=== PATIENT | female | born 1955 | race Caucasian/White ===

== ENCOUNTER → 2018-02-27 14:01 | Outpatient (CLI) | payer BC, SELFPAY ==
--- NOTE | 2018-02-27 14:07 | MR_ITS ---
MR cervical spine wo con, MR 3-d myelogram/MRCP HISTORY: PT states Neck and upper back pain . Pain has gotten worse. Bilateral arm pain, numbness and tingling at times. Prior neck surgery ITS.REASON: NECK PAIN ORDERING PHYSICIAN: Alecia Sims MD PATIENT AGE: 63 years Comparison: X-RAY 10/31/15 TECHNIQUE: Standard multiplanar multiecho sequences are performed without contrast. 3-D MIP and myelographic images are also rendered and reviewed FINDINGS: Normal alignment. The craniocervical junction has an unremarkable appearance. C2-C3: Mild left lateral recess and foraminal narrowing from uncovertebral hypertrophy. C3-C4: Mild left foraminal narrowing from facet and uncovertebral hypertrophy. C4-C5: Degenerative disc disease with bulging disc with borderline narrowing of the canal. There is minimal impingement upon the cord with minimal contour deformity involving the major aspect of the cord from the bulging disc C5-C6: Postsurgical changes with extensive artifact. Bone plate is present anteriorly at C5 and C6 anterior fusion. C6-C7: Degenerative disc disease with mild concentric bulging disc. There is minimal right paracentral disc protrusion versus a small osteophyte without impingement. There is mild right lateral recess and foraminal narrowing from uncovertebral hypertrophy. 67 T1: Unremarkable. IMPRESSION: 1. Postsurgical changes with prior injury cervical disc fusion at C5-C6. 2. Degenerative disc disease C5 with bulging disc with borderline narrowing of the canal. There is minimal impingement upon the cord with minimal contour deformity involving the major aspect of the cord from the bulging disc. 3. Degenerative disc disease C6-C7 with mild concentric bulging disc. There is minimal right paracentral disc protrusion versus a small osteophyte without impingement. There is mild right lateral recess and foraminal narrowing from uncovertebral hypertrophy 4. Mild foraminal and lateral recess narrowing on the left at C2-C3 and C3-C4 5. No extruded herniated disc
== END ==
PROVIDERS: Family Provider Family Medicine; PCP Family Medicine; Visit Provider Family Medicine
DX: M54.2 Cervicalgia (principal)
CPT/HCPCS: 72141; 76376

== ENCOUNTER → 2018-05-15 13:49 | Outpatient (CLI) | payer BC, SELFPAY ==
--- NOTE | 2018-05-15 14:01 | XR_ITS ---
EXAM: XR cervical spine 2V HISTORY: Follow-up surgery ITS.REASON: S/P SURGERY FU ORDERING PHYSICIAN: Referral Provider, PATIENT AGE: 63 years COMPARISON: 10/31/2015 FINDINGS: Normal alignment. There is an anterior bone plate at C5-C6 with fusion of that interspace. Small rectangular shaped metallic devices are now present in both the right and left facet region at C5-6 and C6-C7. There is mild facet sclerosis at C3-C4 and C4-C5. No acute fracture or dislocation. No lytic or blastic changes. IMPRESSION: Fusion of C5-C6 with good alignment with new facet metallic devices at C5-6 and C6-C7
== END ==
PROVIDERS: PCP Family Medicine
DX: Z47.89 Encounter for other orthopedic aftercare (principal)
CPT/HCPCS: 72040

== ENCOUNTER → 2018-06-19 15:18 | Outpatient (CLI) | payer BC, SELFPAY ==
--- NOTE | 2018-06-19 15:22 | XR_ITS ---
EXAM: XR cervical spine 5V HISTORY: ITS.REASON: CERVICAL RADICULOPATHY ORDERING PHYSICIAN: Omari Martin II, DO PATIENT AGE: 63 years COMPARISON: None FINDINGS: There has been prior anterior cervical disc fusion at C5 cc's with small screws also present within the facet joint on both sides at C5-C6 and C6-C7. There is good alignment. No fracture or dislocation. There is degenerative disc disease at C5-6 and C7-T1. No fracture or dislocation evident. IMPRESSION: 1. Degenerative disc disease C4-5 and C6 C7. 2. Prior anterior cervical disc fusion at C5-C6
== END ==
PROVIDERS: PCP Family Medicine; Visit Provider Orthopaedic Surgery Orthopaedic Surgery of the Spine
DX: M54.12 Radiculopathy, cervical region (principal); M54.2 Cervicalgia
CPT/HCPCS: 72050

== ENCOUNTER → 2018-06-25 14:04 | Outpatient (CLI) | payer BC, SELFPAY ==
--- NOTE | 2018-06-25 14:09 | CT_ITS ---
CT CERVICAL SPINE WITHOUT CONTRAST CT RECONSTRUCTIONS HISTORY:Continued neck pain, cervical spine surgery ORDERING PHYSICIAN: Omari Martin II, DO PATIENT AGE: 63 years COMPARISON: 06/19/2018 Technique: All CT scans at the facility use one or more dose reduction, viz: automated exposure control, ma/kV adjustment per patient size (including targeted exams where dose is matched to indication, i.e. head), or iterative reconstruction technique PROCEDURE: Axial spiral CT scanning performed of the cervical spine beginning at the base of the skull and continuing to the upper T-spine. 3-D multiplanar reconstruction with 3-D manipulation of volumetric data set in image rendering was completed by the radiologist and/or technologist with the supervision of the radiologist on independent workstation. FINDINGS: There is normal alignment. No acute fracture or dislocation. No lytic or blastic change. No malalignment. C1-C2: Mild osteoarthritic changes of the atlantoaxial joint at the dens. C2-C3: Mild degenerative disc disease with minimal uncovertebral hypertrophy on the left with mild left foraminal narrowing. C3-C4: Mild left-sided uncovertebral hypertrophy with mild left-sided foraminal narrowing. C5: Degenerative disc disease with small endplate osteophytes at the inferior aspect of C4 with mild facet hypertrophy and mild bilateral foraminal narrowing. C5-C6: Status post anterior cervical disc fusion with good alignment. The foramina are widely patent and there is no evidence of canal stenosis. There are small metallic devices between the facets at C5-C6 and C6-C7. These appear squarely within the facet joints. C6-C7: Mild degenerative disc disease with anterior osteophytes of the endplates. C7-T1: Unremarkable. IMPRESSION: 1. Cervical spondylosis as described above with mild degenerative disc disease and uncovertebral arthropathy with mild foraminal narrowing. Please see above for detailed description at each level 2. Postsurgical changes from prior anterior cervical disc fusion at C5-C6 with small metallic devices at the facet joint at C5-C6 and C6-C7
== END ==
PROVIDERS: Family Provider Family Medicine; PCP Family Medicine; Visit Provider Orthopaedic Surgery Orthopaedic Surgery of the Spine
DX: M54.12 Radiculopathy, cervical region (principal)
CPT/HCPCS: 72125

== ENCOUNTER → 2018-07-17 09:46 | Outpatient (POV) | payer BC, SELFPAY | PROVIDERS: Visit Provider Dermatology | DX: Z00.00 Encounter for general adult medical examination without abnormal findings (principal) ==

== ENCOUNTER 2018-09-06 14:00 | Outpatient (RCR) | payer OTHER, BC, SELFPAY ==
--- NOTE | 2018-08-17 14:42 | HMH.OTOPEV ---
OT Inpatient Evaluation Rehab OT Outpatient Eval Start: 08/17/18 14:27 Freq: Status: Active Protocol: Document 08/17/18 14:28 TFRY (Rec: 08/17/18 14:42 TFRY [id number]) Electronically Signed By Marta Benjamin, OT 08/17/18 14:28 Outpatient Therapy Subjective History Subjective History THIS IS A 63 YEAR RIGHT HANDED FEMALE REFFERED TO OCCUPATIONAL THERAPY FOR A LEFT WRIST SPRAIN. PATIENT REPORTS THAT SHE FELL ON June WHEN DOING WORK FOR THE [employer]. Chief Complaint Pain Symptom Type Ache Sharp Symptoms Relieved By Rest/Positioning Symptoms Aggravated By Physical Activity Prior Functional Limitations None Current Functional Limitations Lifting Housework Dressing Sleeping Symptom Description Constant but Variable Level of pain today (0-10) 4 Pain scale - at its best (0-10) 0 Pain scale - at its worst (0-10) 6 Wrist/Hand Eval Wrist Range of Motion Wrist Extension Active Range of Motion ( 52 degrees) Wrist Extension Passive Range of Motion 64 (degrees) Wrist Flexion Active Range of Motion ( 78 degrees) Wrist Flexion Passive Range of Motion ( 78 degrees) Wrist Radial Deviation Active Range of 40 Motion (degrees) Wrist Radial Deviation Passive Range of 46 Motion (degrees) Wrist Ulnar Deviation Active Range of 30 Motion (degrees) Wrist Ulnar Deviation Passive Range of 32 Motion (degrees) Forearm Supination Active Range of WFL Motion (degrees) Forearm Pronation Active Range of Motion WFL (degrees) Wrist Manual Muscle Testing Left Wrist Extension Strength Grade 3+ Fair+ Wrist Flexion Strength Grade 3+ Fair+ Wrist Radial Deviation Strength Grade 3+ Fair+ Wrist Ulnar Deviation Strength Grade 3+ Fair+ Brothel Keeper/Pinch Strength Brothel Keeper Strength Measurement (lbs) 26 OT Outpatient Assessment Impairments Problems/Impairments Impaired Strength Impaired Lifting Impaired Dressing Impaired Household Care Impaired Work Activities Subjective C/O Pain Prognosis Rehab Potential Good Clinical Impression Consistent with Diagnosis Yes Short Term Goals Number of Weeks 3 Increase Streng
== END 2018-09-06 14:05 | disposition home or self-care (01) ==
LOC: OT 14:00
PROVIDERS: Visit Provider Family Medicine
DX: S63.502D Unspecified sprain of left wrist, subsequent encounter (principal)
CPT/HCPCS: 97110; 97165

== ENCOUNTER → 2018-10-22 09:54 | Outpatient (POV) | payer BC, SELFPAY | PROVIDERS: Visit Provider Specialist | DX: M54.2 Cervicalgia (principal) | CPT/HCPCS: 95886; 95909 ==

== ENCOUNTER → 2019-01-16 14:29 | Outpatient (CLI) | payer BC, SELFPAY ==
--- NOTE | 2019-01-16 14:36 | CT_ITS ---
CT lung screening EXAM: CT LUNG LOW DOSE WO CONTRAST HISTORY: 30 pack-year smoking history, asymptomatic for lung cancer ITS.REASON: H/O NICOTINE DEPENDENCE ORDERING PHYSICIAN: Alecia Sims MD PATIENT AGE: 64 years COMPARISON: 12/15/2016 TECHNIQUE: The exam was performed on a GE Light Speed [address] scanner using 2.90 mGy CTDI. A low dose helical CT CHEST was performed on a multi-detector scanner. All CT scans at the facility use one or more dose reduction, viz: automated exposure control, ma/kV adjustment per patient size (including targeted exams where dose is matched to indication, i.e. head), or iterative reconstruction technique. The LDCT was performed in a facility that meets the criteria for the screening program. Data regarding this exam was submitted to ACR which is an approved registry. The order for this exam indicates that it came as a result of a lung cancer screening counseling shard decision-making visit that included all the elements required of such a visit including smoking cessation. The radiologist interpreting this exam meets the CMS criteria for the LDCT lung cancer screening program. The exam is reported using the Lung-RADS classification scale and reported to the ACR registry. NOTE: This study was performed for the specific purposes of lung cancer screening and is not an alternative to diagnostic chest CT. RADIATION DOSE: CTDI vol(CT dose Index-volume) = 2.90mG DLP (Dose Length Product) = 90.38 mGcm FINDINGS: There are scattered calcified granulomas. No suspicious pulmonary nodules apparent. Incidental coronary artery calcifications present. Mild COPD. IMPRESSION: 1. Lung RADS Category: 2, benign 2. Other findings: COPD, coronary artery disease RECOMMENDATIONS: 12 month LDCT follow-up
== END ==
PROVIDERS: PCP Family Medicine; Visit Provider Family Medicine
DX: Z12.2 Encounter for screening for malignant neoplasm of respiratory organs (principal); Z87.891 Personal history of nicotine dependence

== ENCOUNTER → 2019-09-30 09:21 | Outpatient (CLI) | payer MEDICARE, OTHER, SELFPAY ==
--- NOTE | 2019-09-30 | CA_ITS ---
APPROVED REPORT Screw Machine Hand: CT Laterality: Bilateral Study Quality: Adequate Indications: Bruit Risk Factors Hypertension: Hyperlipidemia Doppler Spectral Velocity Analysis ECA (R) 104.50/19.70 cm/s ECA (L) 110.50/28.30 cm/s dICA (R) 59.70/23.50 cm/s dICA (L) 68.80/25.50 cm/s Katherin (R) 61.00/21.20 cm/s Katherin (L) 66.80/25.70 cm/s pICA (R) 61.00/21.80 cm/s pICA (L) 64.20/25.70 cm/s dCCA (R) 73.20/19.90 cm/s dCCA (L) 82.20/24.40 cm/s pCCA (R) 120.80/24.80 cm/s pCCA (L) 89.60/23.50 cm/s Vert (R) 37.10/12.00 cm/s Vert (L) 40.30/13.60 cm/s ICA/CCA 0.80 ICA/CCA 0.80 Findings Duplex evaluation demonstrates stenosis of the right proximal internal carotid artery <20% with PSV <140 cm/sec, EDV <100 cm/sec, and IC/CC Ratio <4.0. Duplex evaluation demonstrates stenosis of the left proximal internal carotid artery in the range of 20-49% with PSV <140 cm/sec, EDV <100 cm/sec, and IC/CC Ratio <4.0. Duplex evaluation demonstrates antegrade flow of the bilateral Vertebral Arteries. Cysts noted in thyroid. Conclusion Duplex evaluation demonstrates stenosis of the right proximal internal carotid artery Duplex evaluation demonstrates stenosis of the left proximal internal carotid artery in the range of 20-49% Duplex evaluation demonstrates antegrade flow of the bilateral Vertebral Arteries. Cysts noted in left lobe of the thyroid. Electronically signed by : Lincoln St MD 10/01/2019 18:23:03
== END ==
PROVIDERS: PCP Family Medicine; Visit Provider Nurse Practitioner
DX: R09.89 Other specified symptoms and signs involving the circulatory and respiratory systems (principal); M54.2 Cervicalgia
CPT/HCPCS: 93880

== ENCOUNTER → 2020-07-25 07:52 | Outpatient (CLI) | payer MEDICARE, OTHER, SELFPAY ==
--- NOTE | 2020-07-25 07:55 | MR_ITS ---
PROCEDURE: MR CERVICAL SPINE WO CON CLINICAL INDICATION: cervical spondylosis Left-sided neck pain radiating into theback COMPARISON: CT SPCERVWO CT cervical spine wo con from 06/29/2018 TECHNIQUE: Standard multiplanar multiecho sequences are performed without contrast. 3-D MIP and myelographic images are also rendered and reviewed FINDINGS: There is normal alignment. Craniocervical junction has an unremarkable appearance. C2-C3: There is some minimal left-sided uncovertebral hypertrophy with mild left-sided foraminal narrowing. C3-C4: Minimal central disc protrusion slightly eccentric toward the left with left-sided facet and uncovertebral hypertrophy with left-sided narrowing. C4-C5: Degenerative disc disease with bulging disc with canal stenosis at 9 mm. There is right-sided foraminal narrowing from uncovertebral hypertrophy. There is minimal anterior impingement upon the cord by the bulging disc and canal stenosis. This is causing contour deformity of the cord anteriorly. C5-C6: Prior anterior cervical disc fusion. There is significant artifact from the metallic hardware. There are metallic device is also at the facets at C5-C6 and C6-C7. This also is causing artifact. C6-C7: Degenerative disc disease with significant artifact on the axial images from the underlying metallic prosthesis. C7-T1: Unremarkable. IMPRESSION: 1. Postsurgical changes at C5-C6 and C6-C7. 2. Cervical spondylosis with facet and uncovertebral hypertrophy with lateral recess and foraminal narrowing. Please see above for detailed description at each level. 3. Degenerative disc disease at C4-C5 with bulging disc with canal stenosis at 9 mm. There is right-sided foraminal narrowing from uncovertebral hypertrophy. There is minimal anterior impingement upon the cord by the bulging disc and canal stenosis. This is causing contour deformity of the cord anteriorly. Dictated by: Lincoln St MD 07/27/2020 12:[address] MD in [place] 07/27/2020 12:01
== END ==
PROVIDERS: PCP Family Medicine; Visit Provider Specialist
DX: M47.812 Spondylosis without myelopathy or radiculopathy, cervical region (principal); R20.0 Anesthesia of skin; R20.2 Paresthesia of skin
CPT/HCPCS: 72141; 76376

== ENCOUNTER → 2020-09-17 09:00 | Outpatient (POV) | payer MEDICARE, OTHER, SELFPAY ==
[2020-09-17 09:18] VITALS: BP 132/78; PULSE 74; RESP 18; TEMP 36.8; O2SAT 98; BMI 31.7
--- NOTE | 2020-09-17 10:18 | HMH.PMCON ---
Assessment and Plan (1) Facet arthropathy Status: Chronic Category: Medical Code(s): M47.819 - Spondylosis without myelopathy or radiculopathy, site unspecified (2) Degenerative joint disease of cervical spine Status: Chronic Category: Medical Code(s): M47.812 - Spondylosis without myelopathy or radiculopathy, cervical region (3) Cervical postlaminectomy syndrome Status: Chronic Category: Medical Code(s): M96.1 - Postlaminectomy syndrome, not elsewhere classified - Assessment and plan all Dx Assessment and Plan for all problems:: Patient is not on any anticoagulation therapy. We will move forward with a C5-C6 C6-C7 medial branch block/facet joint injection. We will do 1 side and then do the second side 1 week later. I will follow-up with the patient after her injection reassess her symptoms at that time she has been instructed to call the office if she has any issues prior to her next appointment. Dr. Meza has reviewed this note and agrees with this plan of care. This note was dictated using voice recognition software and may contain errors or omissions HPI - Data of Consult Consult date: 09/17/20 Requesting Physician: Linh Mandel APRN Primary Care Provider: Fausto Sims - Consult Narrative Reason for consult: Neck pain History of present illness: Ms. Kitchen is a 65 year old female who presents today for consultation regards to her neck pain. Patient has had previous neck surgery. Patient's pain is very focal in her neck area she has difficulty with turning her neck from side to side. Patient has constant pain her baseline pain is a 7 out of 10. She is continuing to try to work. She has difficulties with activity of daily living given her pain symptomology. She is tried and failed multiple medications. Patient has had good relief in the past with cervical ablations. Patient and I discussed a facet joint injection she would like to move forward with this. She is tried and failed chiropractic therapy, physical therapy. She is continuing her physical therapy currently. She is also failed over 6 months of medication management. CC: Linh Mandel APRN [facility] History I have reviewed the patient's past medical history: Yes Medical History: Reports:: Anxiety, Depression, Hyperlipidemia, Hypertension Denies:: Cancer, Diabetes Mellitus Type 1, Diabetes Mellitus Type 2, MRSA *Have you ever received a pneumonia vaccine?: Yes *Have you received a flu vaccine this season?: Yes Other Medical History: Reports: Anemia, Arthritis Other Surgeries: Yes: Colonoscopy, Dilation and Curettage, Tubal Ligation Amputation: No Fractures: No - *Social History Smoking Status: Never smoker Alcohol Intake: never Alcohol Intake Frequency:: holidays/special occasions only Substance Use Type: denies use *Occupational Status:: employed Housing: house Household Members: spouse *Travel in the last 8 weeks: None - Psychiatric History Pschychiatric History:: Reports:: Anxiety, Depression Family Hx:: Unable to obtain Review of Systems - Review of Systems ROS General: no recent weight change, no fever, no sleep disturbances Respiratory: no cough, no shortness of air, no recurring pulmonary infections Cardiovascular/Peripheral Vascular: No chest pain, No palpitations, no edema, no shortness of breath. Gastrointestinal: no new onset incontinence, normal bowel movements reported Genitourinary: no new onset incontinence Musculoskeletal: Neck pain Psychiatric: normal mood/ affect Neurological: [denies new onset weakness in extremities], [denies new onset balance issues] Meds Home Medications Medication Instructions Recorded Confirmed Type Metoprolol Succinate 100 mg PO DAILY 06/29/18 08/13/20 History Omeprazole [Omeprazole 20mg Tab] 20 mg PO DAILY 06/29/18 08/13/20 History lisinopriL [Lisinopril 20mg Tab] 20 mg PO DAILY 06/29/18 08/13/20 History celecoxib 200 mg capsule 200 mg PO BID cap
== END ==
PROVIDERS: PCP Family Medicine; Visit Provider Clinical Nurse Specialist Family Health
DX: M47.812 Spondylosis without myelopathy or radiculopathy, cervical region (principal); M96.1 Postlaminectomy syndrome, not elsewhere classified
CPT/HCPCS: 99202; G0463

== ENCOUNTER 2020-09-25 09:32 | Day surgery (SDC) | payer MEDICARE, OTHER, SELFPAY ==
[2020-09-25 09:40] VITALS: BP 155/70; PULSE 62; RESP 18; TEMP 36.4; O2SAT 99; BMI 31.9
[2020-09-25 10:22] VITALS: BP 135/79; PULSE 85; RESP 18; O2SAT 98
[2020-09-25 10:24] VITALS: BP 132/75; PULSE 79; RESP 18; TEMP 36.8; O2SAT 98
[2020-09-25 10:45] VITALS: BP 148/83; PULSE 63; RESP 20; O2SAT 99
--- NOTE | 2020-09-25 11:32 | HMH.PMPROC ---
- Procedure Date: 09/25/20 Time: 11:32 Anesthesiologist:: Terry Meza MD Complications:: None Pre-procedure Diagnosis:: Degenerative disc disease of the cervical spine with cervical spondylosis and cervical facet arthropathy with increasing neck pain Post-procedure Diagnosis:: Same Indications for Procedure:: Patient is a pleasant 65-year-old white female who we are treating for neck pain with cervical spondylosis and cervical facet arthropathy. She has increasing pain with extension and turning her neck from side to side. She is tender over the facet joints of C5-C6 and C6-C7. She has had a previous anterior cervical disc fusion at C3-C4 and C4-C5. We will plan on right-sided cervical medial branch blocks of C5-C6 and C6-C7 today. Procedure Details:: Cervical medial branch block Informed consent was obtained and the risk and benefits of the procedure was explained to the patient. The patient was into the procedure room and placed prone on the procedure table. The neck was prepped using ChloraPrep. C-arm fluoroscopy was used to view the cervical spine. The skin and subcutaneous tissues were anesthetized lidocaine. I placed 22-gauge spinal needles into the facet joints of C5-6, and C6-7 right side. Needle placement was confirmed with dye. After this I injected 1 mL lidocaine 1.5% and Depo-Medrol 20 mg into each facet joint/medial branch of C5-6, and C6-7 on the right side .We used a total of 40 mg of Medrol for both levels on the right side. Patient tolerated the procedure well with no complications. Plan and Disposition:: Follow-up with the patient 2 weeks. Will reevaluate her symptoms at that time. We will plan on left-sided cervical medial branch block/facet joint injections of C5-C6 and C6-C7. If these medial branch blocks are successful we will proceed to RFA of the same levels of C5-C6 and C6-7.
== END 2020-09-25 10:46 | disposition home or self-care (01) ==
LOC: SC.PAINP 09:34
PROVIDERS: PCP Family Medicine; Visit Provider Anesthesiology
DX: M50.30 Other cervical disc degeneration, unspecified cervical region (principal); M47.812 Spondylosis without myelopathy or radiculopathy, cervical region; M54.02 Panniculitis affecting regions of neck and back, cervical region
CPT/HCPCS: 64490; 64491; J1040; Q9966

== ENCOUNTER → 2020-09-30 10:20 | Outpatient (CLI) | payer MEDICARE, OTHER, SELFPAY ==
[2020-09-30 11:20] LABS: Coronavirus 19 IgG Antibody Negative (Negative); Coronavirus 19 IgM Antibody Negative (Negative)
== END ==
PROVIDERS: Visit Provider Specialist
DX: G47.33 Obstructive sleep apnea (adult) (pediatric) (principal); Z20.822 Contact with and (suspected) exposure to COVID-19
CPT/HCPCS: 36415; 86328

== ENCOUNTER → 2020-10-01 20:18 | Outpatient (CLI) | payer MEDICARE, OTHER, SELFPAY | PROVIDERS: PCP Family Medicine; Visit Provider Specialist | DX: G47.33 Obstructive sleep apnea (adult) (pediatric) (principal) | CPT/HCPCS: 95810 ==

== ENCOUNTER 2020-10-08 13:00 | Outpatient (RCR) | payer MEDICARE, OTHER, SELFPAY ==
--- NOTE | 2020-08-20 11:47 | HMH.PTOPEV ---
PT Outpatient Evaluation Rehab PT Outpatient Evaluation Start: 08/20/20 09:57 Freq: Status: Active Protocol: Document 08/20/20 11:31 GABRIEL (Rec: 08/20/20 11:46 PHORNE [id number]) Electronically Signed By Anthony Rodríguez, PT 08/20/20 11:31 Outpatient Therapy Subjective History Subjective History Pt is 65 yowf who presents with c/o chronic neck pain x ~ 30 yrs and L hand pain x ~ 3- 4 yrs. She has hx of ACIF x 2 at C5-6 and C6-7. MRI shows C4 -5 disc bulge now. NCV/EMG shows carpal tunnel syndrome of B hands, worse on L. She reports pain is constant in neck and intermittent in hands . She has PMH of anxiaty, depression, HL, and HTN. Chief Complaint Pain,Stiff Symptom Type Ache,Sharp,Numbness,Tingling Symptoms Relieved By Nothing Symptoms Aggravated By Physical Activity Prior Functional Limitations Sleeping,Recreation Activity Current Functional Limitations Driving,Sleeping,Recreation Activity Symptom Description Constant but Variable Level of pain today (0-10) 7 Pain scale - at its worst (0-10) 9 Cervical Eval Palpation Cervical Muscles R Cervical Paraspinal,L Cervical Paraspinal,R Suboccipital,L Suboccipital,R CT Junction,L CT Junction,R Upper Trapezius,L Upper Trapezius Flexibility Deficits Upper Trapezius Muscle Length (R) Moderate Tightness,(L) Moderate Tightness Levaetor Scapulae Muscle Length (R) Moderate Tightness,(L) Moderate Tightness Passive Joint Mobility Cervical PIVM Dec: R OA L OA R AA L AA R C2/3 L C2/3 R C3/4 L C3/4 R C4/5 L C4/5 R C5/6 L C5/6 R C6/7 L C6/7 R C7/T1 L C7/T1 AROM Cervical Spine Extension Active Range of 0-25 Motion (degrees)
--- NOTE | 2020-09-24 09:35 | HMH.RHREAS ---
Rehab Reassessment Rehab OP Re-assessment Start: 09/24/20 09:26 Freq: Status: Active Protocol: Document 09/24/20 09:28 GABRIEL (Rec: 09/24/20 09:35 ARMANDOTungMONO [id number]) Electronically Signed By Anthony Rodríguez, PT 09/24/20 09:28 Rehab Re-assessment Subjective Subjective Pt reports, My pain is about the same as it always is, but I'll be honest I haven't been doing my exercises. She also states, I don't notice any problenms in my wrist at all really. Objective Objective Notes Cervical AROM (in deg): Ext= 0 -30, Flex= 0-47, R SB= 0-30, L SB= 0-30, R Rot= 0-50, L Rot= 0-43. Pain: 7/10 this am at rest. Assessment Progress Assessment Slower Than Expected Assessment Notes Pt shows no discernible improvement in AROM or pain. Strength was WNL throughout B UE during initial evaluation. Pt lack of cooperation with HEP and small number of visits (2 since initial eval) likely delaying any possible benefits of therapy. Patient goals met none Goals Not Met ST,2,3,4,5 LT,2,3,4 ,5 Revised Goals none Plan Plan Will continue per initial POC. Will trial trigger point dry needling for possibility of pain relief as able. Frequency of Therapy 2 x/wk Duration of therapy 8 wks Time and Billing Re-Eval Time 15 Re-Eval Billing Units 1 PHYSICIAN CERTIFICATION: I certify the specified therapy services for Ame Kitchen are required, authorized, and reviewed every 30 days.
== END 2020-10-08 13:05 | disposition home or self-care (01) ==
LOC: PT 13:00
PROVIDERS: PCP Family Medicine; Visit Provider Specialist
DX: M47.812 Spondylosis without myelopathy or radiculopathy, cervical region (principal); R51.9 Headache, unspecified; G56.00 Carpal tunnel syndrome, unspecified upper limb
CPT/HCPCS: 20561; 97010; 97014; 97033; 97035; 97110; 97140; 97163; 97164; G0283

== ENCOUNTER 2020-10-09 09:30 | Day surgery (SDC) | payer MEDICARE, OTHER, SELFPAY ==
[2020-10-09 09:38] VITALS: BP 144/89; PULSE 61; RESP 18; TEMP 36.6; O2SAT 98; BMI 30.7
[2020-10-09 10:02] VITALS: BP 143/85; PULSE 92; RESP 18; O2SAT 99
[2020-10-09 10:07] VITALS: BP 138/78; PULSE 90; RESP 18; O2SAT 99
--- NOTE | 2020-10-09 10:11 | HMH.PMPROC ---
- Procedure Date: 10/09/20 Time: 10:11 Anesthesiologist:: Terry Meza MD Complications:: None Pre-procedure Diagnosis:: Degenerative disc disease of cervical spine with cervical spondylosis and cervical facet arthropathy with increasing neck pain Post-procedure Diagnosis:: Same Indications for Procedure:: This patient is a pleasant 65-year-old white female who we are treating for neck pain with cervical spondylosis and cervical facet arthropathy. She has increasing pain with extension and turning her neck from side to side. She is status post right-sided cervical medial branch blocks of C5-C6 and C6-C7. She is doing very well on this side. She has resolution of her pain on the right side. We will do left-sided cervical medial branch block/facet joint injections of C5-C6 and C6-C7 today. Procedure Details:: Cervical medial branch block Informed consent was obtained and the risk and benefits of the procedure was explained to the patient. The patient was into the procedure room and placed prone on the procedure table. The neck was prepped using ChloraPrep. C-arm fluoroscopy was used to view the cervical spine. The skin and subcutaneous tissues were anesthetized lidocaine. I placed 22-gauge spinal needles into the facet joints of C5-6, C6-7 on the left side. Needle placement was confirmed with dye. After this I injected 1 mL lidocaine 1.5% and Depo-Medrol 20 mg into each facet joint/medial branch of C5-6 and C6-C7 on the left side. We used a total of 40 mg of Medrol for both levels on the left side. Patient tolerated the procedure well with no complications. Plan and Disposition:: We will follow-up with her in 2 weeks. Will reevaluate symptoms at that time. If she still doing well we will plan on RF ablation to the facet joint/medial branches of C5-C6 and C6-C7 bilaterally.
[2020-10-09 10:20] VITALS: BP 145/88; PULSE 62; RESP 18; O2SAT 98
== END 2020-10-09 10:20 | disposition home or self-care (01) ==
LOC: SC.PAINP 09:35
PROVIDERS: PCP Family Medicine; Visit Provider Anesthesiology
DX: M50.30 Other cervical disc degeneration, unspecified cervical region (principal); M47.812 Spondylosis without myelopathy or radiculopathy, cervical region; I10 Essential (primary) hypertension; E78.5 Hyperlipidemia, unspecified; K21.9 Gastro-esophageal reflux disease without esophagitis; F41.9 Anxiety disorder, unspecified; F32.9 Major depressive disorder, single episode, unspecified; Z88.8 Allergy status to other drugs, medicaments and biological substances
CPT/HCPCS: 64490; 64491; J1040; Q9966

== ENCOUNTER → 2020-11-12 14:35 | Outpatient (POV) | payer MEDICARE, OTHER, SELFPAY ==
--- NOTE | 2020-11-12 15:49 | HMH.PAINSOAP ---
[facility] Pain Management SOAP Note Subjective:: Patient is a pleasant 65-year-old white female who presents today for follow-up after medial branch block of C5-C6 C6-C7 bilaterally. Patient had good relief during the time that the anesthetic was active. Patient was able to rotate her neck she was able to be more active. She got over 80% relief of her symptomology during this time. Patient has had radiofrequency ablation in the past with good relief. She is interested in pursuing this. Patient rates her pain today an 8 out of 10. She is not on any anticoagulation therapy. She is failed other conservative measures including medications, home stretching program, physical therapy. ROS General: no recent weight change, no fever, no sleep disturbances Respiratory: no cough, no shortness of air, no recurring pulmonary infections Cardiovascular/Peripheral Vascular: No chest pain, No palpitations, no edema, no shortness of breath. Gastrointestinal: no new onset incontinence, normal bowel movements reported Genitourinary: no new onset incontinence Musculoskeletal: Neck pain Psychiatric: normal mood/ affect Neurological: [denies new onset weakness in extremities], [denies new onset balance issues] Objective:: Physical Exam General: Alert and oriented x3, no acute distress, pleasant and cooperative, [on room air] Lungs: Resps E/U, Symmetrical chest expansion, Eyes: PERRL Musculoskeletal: Flexion and extension of cervical spine somewhat guarded secondary to pain, deep tendon reflexes normal, strength in upper and lower extremities [5/5], normal gait noted Neurological: speech clear, 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 I will follow-up with her after this reassess her symptoms at that time she has been instructed to call the office if she has any issues prior to her next appointment. Dr. Meza has reviewed this note and agrees with this plan of care. This note was dictated using voice recognition software and may contain errors or omissions [facility] History I have reviewed the patient's past medical history: Yes Medical History: Reports:: Anxiety, Depression, Hyperlipidemia, Hypertension Denies:: Cancer, Diabetes Mellitus Type 1, Diabetes Mellitus Type 2, MRSA, Seizures *Have you ever received a pneumonia vaccine?: No *Have you received a flu vaccine this season?: No Other Medical History: Reports: Anemia, Arthritis. Denies: Blood Transfusion Reaction Other Surgeries: Yes: Colonoscopy, Dilation and Curettage, Tubal Ligation Amputation: No Fractures: No - *Social History Smoking Status: Never smoker Alcohol Intake: never Alcohol Intake Frequency:: holidays/special occasions only Substance Use Type: denies use *Occupational Status:: employed Housing: house Household Members: spouse *Travel in the last 8 weeks: None - Psychiatric History Pschychiatric History:: Reports:: Anxiety, Depression Family Hx:: Unable to obtain
[2020-11-12 15:54] VITALS: BP 122/68; PULSE 64; RESP 18; O2SAT 98; BMI 31.3
== END ==
PROVIDERS: PCP Psychiatry & Neurology Sleep Medicine; Visit Provider Clinical Nurse Specialist Family Health
DX: M50.10 Cervical disc disorder with radiculopathy, unspecified cervical region (principal); M54.02 Panniculitis affecting regions of neck and back, cervical region
CPT/HCPCS: 99212; G0463

== ENCOUNTER 2020-11-20 11:07 | Day surgery (SDC) | payer MEDICARE, OTHER, SELFPAY ==
[2020-11-20 11:29] VITALS: BP 177/92; PULSE 61; RESP 18; TEMP 36.7; O2SAT 98; BMI 31.3
[2020-11-20 12:28] VITALS: BP 128/85; PULSE 89; RESP 18; O2SAT 98
--- NOTE | 2020-11-20 12:29 | HMH.PMPROC ---
- Procedure Date: 11/20/20 Time: 12:29 Anesthesiologist:: Terry Meza MD Complications:: None Pre-procedure Diagnosis:: Degenerative disc disease of the cervical spine with cervical spondylosis and cervical facet arthropathy Post-procedure Diagnosis:: Same Indications for Procedure:: This patient is a pleasant 65-year-old white female who we are treating for neck pain with cervical facet arthropathy and cervical spondylosis. She did very well with 2 rounds of previous medial branch blocks. She was able to turn her head better. She had 80 to 90% relief for several days. She presents today for RF ablation to the facet joints of C5-C6 and C6-C7. We will do left-sided RF ablation of the facet joint/medial branches of C5-C6 and C6-C7. Procedure Details:: Cervical facet/medial branch RFA of C5-C6 and C6-C7 on the left side Informed consent was obtained the risk and benefits of the procedure were explained to the patient. Patient was taken the procedure room. The neck was prepped using ChloraPrep. A 20-gauge RF needles were placed into the facet joint/medial branches of C5-C6 and C6-C7 on the left side. We underwent sensory stimulation. There was good sensory stimulation at 1 V. We underwent motor stimulation. There was no motor stimulation at 3 V. We anesthetized both levels of C5-C6 and C6-7 with lidocaine and Depo-Medrol 40 mg. We then burned each level of C5-C6 and C6-C7 at 80 ?C for 4 minutes total. Patient tolerated procedure well with no complications. Plan and Disposition:: We will follow-up with her in 2 weeks. Will reevaluate her symptoms at that time. We will plan on RF ablation to the facet joint/medial branches of C5-C6 and C6-C7 on the right side.
[2020-11-20 12:30] VITALS: BP 132/78; PULSE 85; RESP 18; O2SAT 98
[2020-11-20 12:45] VITALS: BP 149/86; PULSE 59; RESP 18; O2SAT 98
== END 2020-11-20 12:45 | disposition home or self-care (01) ==
LOC: SC.PAINP 11:08
PROVIDERS: PCP Psychiatry & Neurology Sleep Medicine; Visit Provider Anesthesiology
DX: M50.10 Cervical disc disorder with radiculopathy, unspecified cervical region (principal); M47.892 Other spondylosis, cervical region; M54.02 Panniculitis affecting regions of neck and back, cervical region; M96.1 Postlaminectomy syndrome, not elsewhere classified; I10 Essential (primary) hypertension; E78.5 Hyperlipidemia, unspecified; K21.9 Gastro-esophageal reflux disease without esophagitis; Z98.1 Arthrodesis status; F41.9 Anxiety disorder, unspecified; F32.9 Major depressive disorder, single episode, unspecified; G43.909 Migraine, unspecified, not intractable, without status migrainosus; Z88.8 Allergy status to other drugs, medicaments and biological substances
CPT/HCPCS: 64633; 64634

== ENCOUNTER → 2020-12-04 14:27 | Day surgery (SDC) | payer MEDICARE, OTHER, SELFPAY ==
[2020-12-04 14:47] VITALS: BP 163/88; PULSE 67; RESP 18; TEMP 36.7; O2SAT 98
--- NOTE | 2020-12-04 15:04 | HMH.PMPROC ---
- Procedure Date: 12/04/20 Time: 15:18 Anesthesiologist:: Terry Meza MD Complications:: None Pre-procedure Diagnosis:: Interim disc disease of cervical spine with cervical spondylosis and cervical facet arthropathy Post-procedure Diagnosis:: Same Indications for Procedure:: Patient is a pleasant 65-year-old white female who we have been treating for neck pain with cervical spondylosis and cervical facet arthropathy. She has had RF ablation to the facet joint/medial branches of left C5-C6 and C6-C7. She is doing very well on the left side. She presents for RF ablation to the facet joint/medial branches of C5-C6 and C6-7 on the right side today. Procedure Details:: Cervical RFA informed consent was obtained and the risk and benefits of the procedure was explained to the patient. Patient was placed prone on the procedure table. The patient was prepped and draped in sterile fashion. C-arm fluoroscopy was used to view the lumbar spine. The skin and subcutaneous tissues were anesthetized using lidocaine. I placed 20-gauge RF needles into the facet joints of C5-C6 C6-C7 levels on the right side. We underwent sensory stimulation. There is good sensory stimulation at 0.8 V. We underwent motor stimulation. There is no motor stimulation at 2 V. We then anesthetized these levels with lidocaine and Depo-Medrol. I used a total of 40 mg Depo-Medrol for both levels. I then burned both levels of C5-C6 C6-C7 facet joint/medial branches on the right side for 4 minutes at 80 ?C. Patient tolerated the procedure well with no complication. Plan and Disposition:: We will follow-up with her in 2 weeks. Will reevaluate symptoms at that time.
[2020-12-04 15:09] VITALS: BP 132/85; PULSE 85; RESP 18; O2SAT 98
[2020-12-04 15:14] VITALS: BP 138/87; PULSE 79; RESP 18; O2SAT 98
== END ==
PROVIDERS: PCP Family Medicine; Visit Provider Anesthesiology
DX: M50.30 Other cervical disc degeneration, unspecified cervical region (principal); M47.812 Spondylosis without myelopathy or radiculopathy, cervical region; M54.02 Panniculitis affecting regions of neck and back, cervical region; I10 Essential (primary) hypertension; E78.5 Hyperlipidemia, unspecified; Z88.8 Allergy status to other drugs, medicaments and biological substances; K21.9 Gastro-esophageal reflux disease without esophagitis; F41.9 Anxiety disorder, unspecified; F32.9 Major depressive disorder, single episode, unspecified; G43.909 Migraine, unspecified, not intractable, without status migrainosus; Z83.438 Family history of other disorder of lipoprotein metabolism and other lipidemia; Z82.49 Family history of ischemic heart disease and other diseases of the circulatory system
CPT/HCPCS: 64633; 64634

== ENCOUNTER 2021-06-02 20:56 | Emergency (ER) | payer MEDICARE, OTHER, SELFPAY ==
[2021-06-02 21:14] VITALS: BP 175/112; PULSE 90; RESP 18; TEMP 38.3; O2SAT 95; BMI 29.8
[2021-06-02 21:48] LABS: Microscopic, Urine URINE MICROSCOPIC (MICROSCOPIC)
[2021-06-02 21:50] LABS: Appearance,Urine CLOUDY (Clear); Bilirubin,Urine Negative (Negative); Blood, Urine 2+ (Negative); Color,Urine YELLOW (Yellow); Glucose,Urine (UA) Negative (Negative); Ketones,Urine Negative (Negative); Leukocyte Esterase,Urine 2+ (Negative); Nitrate,Urine Negative (Negative); PH,Urine 5.5 (5.0-8.5); Protein,Urine 1+ (Negative); Specific Gravity, Urine 1.025 (1.005-1.030)
[2021-06-02 22:04] LABS: Bacteria,Urine 2+ /lpf; Mucus,Urine Trace /lpf
[2021-06-02 22:15] LABS: Basophils # 0.1 K/mm3 (0-0.2); Basophils % 0.5 % (0.1-2.0); Eosinophils # 0.1 K/mm3 (0.0-0.4); Eosinophils % 1.2 % (0.1-12.0); Hematocrit 34.9 % (37.0-47.0); Hemoglobin 12.2 g/dL (12.2-16.2); Lymphocytes % 9.2 % (10-50); Mean Corpuscular HGB Conc 34.9 g/dL (31.8-35.4); Mean Corpuscular Volume 88.6 fl (81-99); Mean Platelet Volume 8.3 fl (7.4-10.4); Monocytes # 0.8 K/mm3 (0.1-1.0); Monocytes % 7.7 % (1.7-9.3); Neutrophils # 8.7 K/mm3 (1.8-7.8); Neutrophils % 81.4 % (37.0-80.0); Platelet Count 210 K/mm3 (142-424); Red Blood Count 3.94 M/mm3 (4.20-5.40); Red Cell Distribution Width 14.2 % (11.5-17.5); White Blood Count 10.7 K/mm3 (4.8-10.8)
[2021-06-02 22:22] LABS: Alanine Aminotransferase 82 U/L (12-78); Albumin Level 3.9 g/dl (3.5-5.0); Albumin/Globulin Ratio 1.3 (1.1-1.8); Alkaline Phosphatase 106 U/L (38-126); Anion Gap 9.1 mEq/L (5-15); Aspartate Amino Transferase 132 U/L (14-36); Bilirubin,Total 0.7 mg/dl (0.2-1.3); Blood Urea Nitrogen 18 mg/dl (7-17); Calcium 8.7 mg/dl (8.4-10.2); Carbon Dioxide 30 mmol/L (22.0-30.0); Chloride 93 mmol/L (98-107); Creatinine Clearance Estimated 66 mL/min (50-200); Estimated Glomerular Filt Rate 50 ml/min (>60); GFR (African American) 60 ML/MIN (>60); Glucose 127 mg/dl (74-100); Potassium 4.1 mmoL/L (3.5-5.1); Sodium 128 mmol/L (136-145); Total Protein,Serum 6.9 g/dl (6.3-8.2)
[2021-06-02 22:28] LABS: C-Reactive Protein 142.7 mg/L (0-4)
[2021-06-02 22:40] LABS: Erythrocyte Sedimentation Rate 78 mm/hr (0-30)
--- NOTE | 2021-06-03 01:15 | HMH.EDGENADL ---
ED Disposition Clinical Impression: UTI (urinary tract infection) Qualifiers: Urinary tract infection type: site unspecified Hematuria presence: without hematuria Qualified Code(s): N39.0 - Urinary tract infection, site not specified Disposition: Home, Self-Care Condition on Discharge: Good Instructions: DI for Urinary Tract Infection (UTI) Additional Instructions: fluids and see pcp this week and culture results Prescriptions: levoFLOXacin [Levaquin 500mg tab] 500 mg PO DAILY #7 tab Transmission Status: Pending to [facility]/pharmacy #[id number] Referrals: Alecia Sims MD [Primary Care Provider] - - Critical Care Critical Care Time: No Attestation: On 06/02/21, the high probability of a clinically significant, sudden or life threatening deterioration of the following system(s) required my full and direct attention, intervention and personal management. The time I documented below is in addition to time spent performing reported procedures but includes the following listed in this critical care notation. Medical Decision Making - Medical Records Medical records reviewed: Yes: I reviewed the patient's medical records. - Julian Inquiry Pt receiving controlled substance: No Vital Signs: 06/02/21 21:14 Temperature 101.0 F H Temperature Source Oral Pulse Rate [Right Brachial] 90 Respiratory Rate 18 Blood Pressure [Right Arm] 175/112 H Blood Pressure Mean [Right Arm] 133 Blood Pressure Source [Right Arm] Automatic Cuff 02 Sat by Pulse Oximetry 95 Oxygen Delivery Method Room Air - Lab Data Lab results reviewed: Yes: I reviewed the patient's lab results. Lab Results 06/02/21 21:44: Urine Color Yellow, Urine Appearance Cloudy, Urine pH 5.5, Ur Specific [place] 1.025, Urine Protein 1+, Urine Glucose (UA) Negative, Urine Ketones Negative, Urine Blood 2+, Urine Nitrate Negative, Urine Bilirubin Negative, Urine Urobilinogen 2.0, Ur Leukocyte Esterase 2+ A, Urine RBC 10-20, Urine WBC 10-20, Ur Squamous Epith Cells 3-5, Urine Bacteria 2+, Urine Mucus Trace 06/02/21 22:03: WBC 10.7, RBC 3.94 L, Hgb 12.2, Hct 34.9 L, MCV 88.6, MCH 31.0, MCHC 34.9, RDW 14.2, Plt Count 210, MPV 8.3, Neut % (Auto) 81.4 H, Lymph % (Auto) 9.2 L, [place] % (Auto) 7.7, Eos % (Auto) 1.2, Baso % (Auto) 0.5, Neut # (Auto) 8.7 H, Lymph # (Auto) 1.0, [place] # (Auto) 0.8, Eos # (Auto) 0.1, Baso # (Auto) 0.1, ESR 78 H 06/02/21 22:03: Sodium 128 L, Potassium 4.1, Chloride 93 L, Carbon Dioxide 30, Anion Gap 9.1, BUN 18 H, Creatinine 1.10 H, Estimated Creat Clear 66, Estimated GFR 50 L, Est GFR ( Amer) 60, Glucose 127 H, Calcium 8.7, Total Bilirubin 0.7, AST 132 H, ALT 82 H, Alkaline Phosphatase 106, C-Reactive Protein 142.7 H, Total Protein 6.9, Albumin 3.9, Globulin 3.0, Albumin/Globulin Ratio 1.3 Result diagrams: 06/02/21 22:03 06/02/21 22:03 Orders (Tests/Meds): ED MEDICATIONS Generic Name Dose Route Start Last Admin Trade Name Freq PRN Reason Stop Dose Admin Sodium Chloride 1,000 mls @ 999 mls/hr 06/03/21 00:15 06/03/21 00:12 Sod Chlor 0.9% 1000ml Bag IV 06/03/21 01:15 999 mls/hr .Q1H1M COURTNEY Administration Ceftriaxone Sodium 1 gm/ 50 mls @ 100 mls/hr 06/03/21 00:15 06/03/21 00:12 Sodium Chloride IV 06/17/21 00:14 100 mls/hr Q24H COURTNEY Administration Discontinued Medications Generic Name Dose Route Start Last Admin Trade Name Freq PRN Reason Stop Dose Admin Ibuprofen 600 mg 06/02/21 21:20 06/02/21 21:24 Ibuprofen 600 Mg Tablet PO 06/02/21 21:21 600 mg ONCE ONE Administration ORDERS Category Date Time Status Urine Culture Stat Micro 06/02/21 21:44 Received Medical Decision Narrative: has ongoing neck pain and has acute uti and c/s pending General Adult HPI - General Chief complaint: PAIN Stated complaint: Shoulder and neck pain Time Seen by Provider: 06/03/21 00:00 Mode of Arrival: Ambulatory Source of Information: Patient, Medical Record Limitations: No Limitations Descr
[2021-06-03 01:29] VITALS: BP 112/59; PULSE 82; RESP 18; TEMP 37.1; O2SAT 95
== END 2021-06-03 01:33 | disposition home or self-care (01) ==
PROVIDERS: Emergency Provider Emergency Medicine; PCP Family Medicine
DX: N39.0 Urinary tract infection, site not specified (principal); R65.10 Systemic inflammatory response syndrome (SIRS) of non-infectious origin without acute organ dysfunction; M45.2 Ankylosing spondylitis of cervical region; Z88.8 Allergy status to other drugs, medicaments and biological substances; F41.9 Anxiety disorder, unspecified; F32.9 Major depressive disorder, single episode, unspecified; E78.5 Hyperlipidemia, unspecified; I10 Essential (primary) hypertension
CPT/HCPCS: 80053; 81001; 85025; 85651; 86140; 87086; 87088; 87186; 96365; 96366; 99283

== ENCOUNTER 2021-06-18 08:16 | Outpatient (RCR) | payer MEDICARE, OTHER, SELFPAY ==
--- NOTE | 2021-06-18 09:36 | HMH.PTOPEV ---
PT Outpatient Evaluation Rehab PT Outpatient Evaluation Start: 06/18/21 08:58 Freq: Status: Active Protocol: Document 06/18/21 08:58 PHILOMENA (Rec: 06/18/21 09:36 PHILOMENA [id number]) Electronically Signed By Dima Campbell, PT 06/18/21 08:58 Outpatient Therapy Subjective History Subjective History Pt reports h/o chronic neck pain for ~30 yrs. Pt reports failed CT junction sx. in 2018 . Pt currently reports no radicular s/s into UE's, however, reports localized neck pain L>R, with tension ashok. severe at base of skull. Pt reports previous imaging has revealed DDDin c-spine. Chief Complaint Pain,Stiff Symptom Type Ache,Throb,Dull Symptoms Relieved By Rest/Positioning,Ice, Prescription Meds Symptoms Aggravated By Physical Activity,Lifting Prior Functional Limitations Housework,Desk Work/Reading, Driving,Sleeping Current Functional Limitations Lifting,Housework,Desk Work/ Reading,Driving,Sleeping Symptom Description Constant but Variable Level of pain today (0-10) 7 Pain scale - at its best (0-10) 6 Pain scale - at its worst (0-10) 10 Cervical Eval Palpation Cervical Muscles R Cervical Paraspinal,L Cervical Paraspinal,R Suboccipital,L Suboccipital,R CT Junction,L CT Junction,R Upper Trapezius,L Upper Trapezius Cervical/Thoracic Palpation Findings Tenderness,Trigger Point, Muscle Guarding Posture Head/C-Spine Posture Sitting Position Flexed Head/C-Spine Posture Standing Position Flexed Flexibility Deficits Upper Trapezius Muscle Length (R) Moderate Tightness,(L) Moderate Tightness Scalene Group Muscle Length (R) Moderate Tightness,(L) Moderate Tightness Passive Joint Mobility Cervical PIVM Dec: R OA L OA R AA L AA R C2/3 L C2/3 WNL: R C3/4 L C3/4 R C4/5 L C4/5 R C5/6 L C5/6
== END 2021-06-18 08:20 | disposition home or self-care (01) ==
LOC: PT 08:16
PROVIDERS: PCP Family Medicine; Visit Provider Family Medicine
DX: M50.30 Other cervical disc degeneration, unspecified cervical region (principal); M50.90 Cervical disc disorder, unspecified, unspecified cervical region; M54.12 Radiculopathy, cervical region
CPT/HCPCS: 97014; 97035; 97163; G0283

== ENCOUNTER → 2021-06-30 09:35 | Outpatient (CLI) | payer MEDICARE, OTHER, SELFPAY ==
--- NOTE | 2021-06-30 09:43 | CT_ITS ---
PROCEDURE: CT ABDOMEN PELVIS WO/W CON CLINICAL INDICATION: RECURRENT UTI Patient complains of recurring UTIs with family history of bladder neoplasm. COMPARISON: No exams were available for comparison TECHNIQUE: IV Contrast: 75ML Isovue 370 Oral Contrast None Axial images obtained with sagittal and coronal reformats. All CT scans at the facility use one or more dose reduction, viz: automated exposure control, ma/kV adjustment per patient size (including targeted exams where dose is matched to indication, i.e. head), or iterative reconstruction technique. FINDINGS: LOWER THORAX: No acute finding ABDOMEN & PELVIS: Liver, spleen, and kidneys appear unremarkable. Bilateral adrenal glands are unremarkable. Pancreas is unremarkable. There is severe calcific atherosclerosis of the SMA. There is a moderate-sized hiatal hernia. Small bowel is unremarkable. There is sigmoid diverticulosis. The appendix is unremarkable. Bladder is unremarkable. There is no lymphadenopathy. Uterus is unremarkable. Mild osseous degenerative change. IMPRESSION: 1. Severe calcific atherosclerosis of the SMA. 2. Moderate-sized hiatal hernia. Dictated by: Soco Son MD 06/30/2021 13:40 Soco Son MD in [place] 06/30/2021 13:40
== END ==
PROVIDERS: PCP Family Medicine; Visit Provider Family Medicine
DX: N39.0 Urinary tract infection, site not specified (principal)
CPT/HCPCS: 74178; Q9967

== ENCOUNTER → 2021-07-13 13:00 | Outpatient (CLI) | payer MEDICARE, OTHER, SELFPAY ==
--- NOTE | 2021-07-13 | CA_ITS ---
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 Duplex evaluation demonstrates stenosis of the left proximal internal carotid artery in the range of 20-49%. Duplex evaluation demonstrates antegrade flow of the bilateral Vertebral Arteries. Conclusion Duplex evaluation demonstrates stenosis of the right proximal internal carotid artery <20%. Duplex evaluation demonstrates stenosis of the left proximal internal carotid artery in the range of 20-49%. Duplex evaluation demonstrates antegrade flow of the bilateral Vertebral Arteries. Electronically signed by : Lincoln St MD 07/13/2021 14:49:09
== END ==
PROVIDERS: PCP Family Medicine; Visit Provider Family Medicine
DX: I65.22 Occlusion and stenosis of left carotid artery (principal)
CPT/HCPCS: 93880

== ENCOUNTER → 2021-07-27 12:05 | Outpatient (CLI) | payer MEDICARE, OTHER, SELFPAY ==
--- NOTE | 2021-07-27 12:10 | XR_ITS ---
PROCEDURE: XR CHEST PORTABLE CLINICAL HISTORY: COVID OUTPATIENT COMPARISON: No exams were available for comparison FINDINGS: The cardiomediastinal silhouette and pulmonary vascularity are within normal limits. The lungs are clear without infiltrates, suspicious nodules, or pleural effusions. No acute bony abnormalities. IMPRESSION: No acute findings. Dictated by: Lincoln St MD 07/27/2021 13:[address] MD in [place] 07/27/2021 13:18
[2021-07-27 13:05] LABS: Adenovirus,PCR Not Detected (NotDetected); Bordetella Pertussis Not Detected (NotDetected); Chlamydophila Pneumoniae, PCR Not Detected (NotDetected); Coronavirus 19, PCR Not Detected (NotDetected); Coronavirus 229E Not Detected (NotDetected); Coronavirus NL63 Not Detected (NotDetected); Coronavirus OC43 Not Detected (NotDetected); Coronovirus HKU1,PCR Not Detected (NotDetected); Human Metapneumovirus Not Detected (NotDetected); Influenza A, PCR Not Detected (NotDetected); Influenza AH1, 2009 Not Detected (NotDetected); Influenza AH1, PCR Not Detected (NotDetected); Influenza AH3,PCR Not Detected (NotDetected); Influenza B, PCR Not Detected (NotDetected); Mycoplasma Pneumoniae, PCR Not Detected (NotDetected); Parainfluenza 1, PCR Not Detected (NotDetected); Parainfluenza 2, PCR Not Detected (NotDetected); Parainfluenza 3, PCR Not Detected (NotDetected); Parainfluenza 4, PCR Not Detected (NotDetected); Respiratory Syncytial Virus Not Detected (NotDetected); Rhinovirus/Enterovirus Not Detected (NotDetected)
[2021-07-27 13:48] LABS: Strep Scrn Group A (Rapid) Negative (Negative)
[2021-07-27 13:54] LABS: Basophils # 0.1 K/mm3 (0-0.2); Basophils % 0.7 % (0.1-2.0); Eosinophils # 0.1 K/mm3 (0.0-0.4); Eosinophils % 1.5 % (0.1-12.0); Lymphocytes # 1.5 K/mm3 (0.7-4.5); Lymphocytes % 20.7 % (10-50); Mean Corpuscular HGB Conc 35.2 g/dL (31.8-35.4); Mean Corpuscular Hemoglobin 31.1 pg (27.0-31.2); Mean Corpuscular Volume 88.3 fl (81-99); Mean Platelet Volume 8.6 fl (7.4-10.4); Monocytes # 0.4 K/mm3 (0.1-1.0); Monocytes % 5.9 % (1.7-9.3); Neutrophils # 5.1 K/mm3 (1.8-7.8); Neutrophils % 71.2 % (37.0-80.0); Platelet Count 266 K/mm3 (142-424); Red Blood Count 4.19 M/mm3 (4.20-5.40); White Blood Count 7.2 K/mm3 (4.8-10.8)
== END ==
PROVIDERS: PCP Nurse Practitioner; Visit Provider Nurse Practitioner
DX: Z20.822 Contact with and (suspected) exposure to COVID-19 (principal)
CPT/HCPCS: 36415; 71045; 85025; 87430; 87581; 87632; 87798; C9803; U0003; U0005

== ENCOUNTER → 2021-08-06 09:25 | Outpatient (CLI) | payer MEDICARE, OTHER, SELFPAY | PROVIDERS: PCP Family Medicine; Visit Provider Nurse Practitioner | DX: Z20.822 Contact with and (suspected) exposure to COVID-19 (principal) | CPT/HCPCS: C9803; U0003; U0005 ==

== ENCOUNTER 2021-10-05 10:33 | Observation (INO) | payer MEDICARE, OTHER, SELFPAY ==
[2021-10-05] VITALS (11 sets, daily range): BP systolic 91–120; BP diastolic 53–75; PULSE 60–73; RESP 12–18; TEMP 36.4–36.6; O2SAT 94–98; BMI 28.1; BMI 32.8
--- NOTE | 2021-10-05 10:52 | ECG_ITS ---
APPROVED REPORT Exam: Resting ECG HR:68 bpm ECG Measurements Heart Rate 68 AXES TX 179 P 47 QRSd 89 QRS -26 QT 413 T 55 QTc 430 Conclusion SINUS RHYTHM BORDERLINE LEFT AXIS DEVIATION [QRS AXIS < -20] LOW QRS VOLTAGE IN PRECORDIAL LEADS [QRS DEFLECTION < 1.0 mV IN CHEST LEADS] NONSPECIFIC T-WAVE ABNORMALITY BORDERLINE ECG UNCONFIRMED REPORT Electronically signed by : Kameron Ayala MD 10/05/2021 16:25:39
--- NOTE | 2021-10-05 10:56 | HMH.EDGENADL ---
ED Disposition Clinical Impression: ELISE (acute kidney injury) Disposition: Admitted as Observation Condition on Discharge: Good Referrals: Alecia Fernandez MD [Primary Care Provider] - - Critical Care Critical Care Time: No Attestation: On 10/05/21, the high probability of a clinically significant, sudden or life threatening deterioration of the following system(s) required my full and direct attention, intervention and personal management. The time I documented below is in addition to time spent performing reported procedures but includes the following listed in this critical care notation. Medical Decision Making - Medical Records Medical records reviewed: Yes: I reviewed the patient's medical records. - Julian Inquiry Pt receiving controlled substance: No Vital Signs: 10/05/21 10:35 10/05/21 11:19 10/05/21 12:04 Temperature 97.9 F Temperature Source Oral Pulse Rate 69 67 Pulse Rate [Right Radial] 73 Respiratory Rate 16 Blood Pressure 94/64 L 91/53 L Blood Pressure [Right Arm] 120/74 Blood Pressure Mean [Right Arm] 89 Blood Pressure Source [Right Arm] Automatic Cuff Blood Pressure Position [Right Arm] Sitting 02 Sat by Pulse Oximetry 96 95 97 Oxygen Delivery Method Room Air Room Air Room Air - Lab Data Lab Results 10/05/21 11:24: WBC 6.0, RBC 4.29, Hgb 13.1, Hct 39.6, MCV 92.2, MCH 30.6, MCHC 33.2, RDW 13.6, Plt Count 291, MPV 8.2, Neut % (Auto) 58.0, Lymph % (Auto) 24.0, [place] % (Auto) 14.4 H, Eos % (Auto) 2.7, Baso % (Auto) 0.9, Neut # (Auto) 3.5, Lymph # (Auto) 1.4, [place] # (Auto) 0.9, Eos # (Auto) 0.2, Baso # (Auto) 0.1 10/05/21 11:24: Sodium 127 L, Potassium 3.9, Chloride 92 L, Carbon Dioxide 27, Anion Gap 11.9, BUN 48 H, Creatinine 2.70 H, Estimated Creat Clear 26, Estimated GFR 18 L*, Est GFR ( Amer) 21 L, Glucose 113 H, Calcium 9.3, Total Bilirubin 0.5, AST 27, ALT 20, Alkaline Phosphatase 57, Total Protein 6.8, Albumin 4.4, Globulin 2.4, Albumin/Globulin Ratio 1.8 Result diagrams: 10/05/21 11:24 10/05/21 11:24 Orders (Tests/Meds): ED MEDICATIONS Generic Name Dose Route Start Last Admin Trade Name Gurvinder PRN Reason Stop Dose Admin Sodium Chloride 1,000 mls @ 999 mls/hr 10/05/21 12:30 Sod Chlor 0.9% 1000ml Bag IV 10/05/21 13:30 .Q1H1M COURTNEY Sodium Chloride 10 ml 10/05/21 11:08 Sodium Chloride 0.9% 10ml Flush Syringe IV 10/05/21 23:08 NEEDED PRN Maintain IV Site Discontinued Medications Generic Name Dose Route Start Last Admin Trade Name Freq PRN Reason Stop Dose Admin Sodium Chloride 1,000 mls @ 999 mls/hr 10/05/21 11:15 10/05/21 11:26 Sod Chlor 0.9% 1000ml Bag IV 10/05/21 12:15 999 mls/hr .Q1H1M COURTNEY Administration ORDERS Category Date Time Status Chest XR -- portable [XR chest portable] Stat Exams 10/05/21 12:06 Taken Rapid PCR Covid and Flu A/B Stat Lab 10/05/21 12:23 Ordered Medical Decision Narrative: ekg by ma nsr, lad, no [facility] discussed with dr fernandez accepts admit here General Adult HPI - General Stated complaint: diarrhea Time Seen by Provider: 10/05/21 10:56 - History of Present Illness HPI narrative: weakness, diarrhea Onset (ago): week(s) Radiation: non-radiation Severity: moderate Consistency: intermittent Relieving factors: none Exacerbating factors: none Associated symptoms: denies other symptoms - Related Data Home Medications Medication Instructions Recorded Confirmed Metoprolol Succinate 100 mg PO DAILY 06/29/18 10/05/21 lisinopriL [Lisinopril 20mg Tab] 20 mg PO DAILY 06/29/18 10/05/21 cholecalciferol (vitamin D3) 50 50 mcg PO DAILY 07/23/20 10/05/21 mcg (2,000 unit) capsule omega-3 fatty acids 1,000 mg 1,000 mg PO DAILY 07/23/20 10/05/21 capsule triamterene 37.5 1 tab PO DAILY tab 07/23/20 10/05/21 mg-hydrochlorothiazide 25 mg tablet esomeprazole magnesium 20 mg 20 mg PO DAILY cap 10/08/20 10/05/21 capsule,delayed release rosuvasta
[2021-10-05 11:41] LABS: Basophils # 0.1 K/mm3 (0-0.2); Basophils % 0.9 % (0.1-2.0); Chloride 92 mmol/L (98-107); Eosinophils # 0.2 K/mm3 (0.0-0.4); Eosinophils % 2.7 % (0.1-12.0); Hematocrit 39.6 % (37.0-47.0); Hemoglobin 13.1 g/dL (12.2-16.2); Lymphocytes # 1.4 K/mm3 (0.7-4.5); Mean Corpuscular HGB Conc 33.2 g/dL (31.8-35.4); Mean Corpuscular Hemoglobin 30.6 pg (27.0-31.2); Mean Corpuscular Volume 92.2 fl (81-99); Mean Platelet Volume 8.2 fl (7.4-10.4); Monocytes # 0.9 K/mm3 (0.1-1.0); Monocytes % 14.4 % (1.7-9.3); Neutrophils # 3.5 K/mm3 (1.8-7.8); Platelet Count 291 K/mm3 (142-424); Potassium 3.9 mmoL/L (3.5-5.1); Red Blood Count 4.29 M/mm3 (4.20-5.40); Red Cell Distribution Width 13.6 % (11.5-17.5); Sodium 127 mmol/L (136-145)
[2021-10-05 11:44] LABS: Alanine Aminotransferase 20 U/L (12-78); Albumin Level 4.4 g/dl (3.5-5.0); Albumin/Globulin Ratio 1.8 (1.1-1.8); Alkaline Phosphatase 57 U/L (38-126); Anion Gap 11.9 mEq/L (5-15); Aspartate Amino Transferase 27 U/L (14-36); Bilirubin,Total 0.5 mg/dl (0.2-1.3); Blood Urea Nitrogen 48 mg/dl (7-17); Calcium 9.3 mg/dl (8.4-10.2); Carbon Dioxide 27 mmol/L (22.0-30.0); Creatinine Clearance Estimated 26 mL/min (50-200); Estimated Glomerular Filt Rate 18 ml/min (>60); GFR (African American) 21 ML/MIN (>60); Globulin 2.4 g/dL (1.3-3.2); Glucose 113 mg/dl (74-100); Total Protein,Serum 6.8 g/dl (6.3-8.2)
--- NOTE | 2021-10-05 12:06 | XR_ITS ---
FINAL REPORT CLINICAL HISTORY: weakness, no sx to chest COMPARISON: July 27, 2021 FINDINGS: SINGLE VIEW CHEST. The heart is normal in size. The mediastinum is unremarkable. There are calcified granulomas bilaterally. There is no pneumothorax. There are postoperative changes in the lower cervical spine. IMPRESSION: No change from the prior exam. Reviewed, Interpreted and Dictated by Julián Alas III, MD Transcribed by Stefanie Gil Authenticated by Julián Alas III, MD on 10/05/2021 12:47:41 PM [facility]
--- NOTE | 2021-10-05 12:11 | PC.NURSE ---
rad at for portable cxr
--- NOTE | 2021-10-05 12:18 | PC.NURSE ---
ROSELINE KENNEY speaking with Dr. Sims
--- NOTE | 2021-10-05 12:24 | PC.NURSE ---
notified care management of admission, spoke with Funmilayo
--- NOTE | 2021-10-05 12:30 | PC.NURSE ---
updated pt on POC at this time
--- NOTE | 2021-10-05 12:32 | PC.NURSE ---
Dr. Sims at
[2021-10-05 12:37] LABS: Influenza A, PCR Not Detected (NotDetected); Influenza B, PCR Not Detected (NotDetected)
--- NOTE | 2021-10-05 12:49 | PC.NURSE ---
report given to santa arellano in [facility] at this time
[2021-10-05 13:08] LABS: Coronavirus 19, PCR Detected (NotDetected)
--- NOTE | 2021-10-05 13:23 | PC.NURSE ---
Patient to 2nd floor with SRNA
--- NOTE | 2021-10-05 14:38 | P.CONPHA_ITS ---
[facility] Pharmacy VTE Monitoring - Patient Demographics Admission date: 10/05/21 Report Date: 10/05/21 Time: 14:38 Allergies/Adverse Reactions: Patient Allergies niacin [NIACIN] Allergy (Unknown, Verified 06/02/21 21:20) Height: 1.65 m Weight: 89.559 kg Patient Problems: Current Active Problems ELISE (acute kidney injury) (Acute) - VTE Risk Labs: VTE Related Lab Results Hgb 13.1 g/dL (12.2-16.2) 10/05/21 11:24 Hct 39.6 % (37.0-47.0) 10/05/21 11:24 Plt Count 291 K/mm3 (142-424) 10/05/21 11:24 BUN 48 mg/dl (7-17) H 10/05/21 11:24 Creatinine 2.70 mg/dl (0.52-1.04) H 10/05/21 11:24 Estimated Creat Clear 26 mL/min (50-200) 10/05/21 11:24 Was VTE Risk Assessment Performed: Yes VTE Score: 3 VTE Risk Level: Low Risk - Prophylaxis VTE Prophylaxis Ordered?: Yes Types of VTE Prophylaxis: TEDS Knee High Location of Applied Device: Bilateral Lower Extremeties
--- NOTE | 2021-10-05 14:59 | HMH.PHAINT ---
MEDICATION RECONCILIATION COMPLETED ON PATIENT USING EXTERNAL FILL HISTORY FROM PHARMACY. -GERSON ROSA, MARED
--- NOTE | 2021-10-05 15:47 | PC.NURSE ---
Called Dr. Sims to alert MD of patient's answer of yes to suicidal thoughts in the past month but no has not thought of a plan. Patient stated she's had sauicidal thoughts since 2001 when her son had passed but has not had a plan and answered no when asked if she was given the chance would she act on said suicidal thoughts. informed, no new orders.
--- NOTE | 2021-10-05 17:12 | HMH.ACPN2 ---
Internal Medicine - PN: Subj *Date: 10/05/21 *Time: 17:12 Interval history: This 66 y.o. WF was admitted through the ER after presenting with a near syncopal episode while in the shower. Dr. Sims saw her and examined her while in the ER. In the ER her renal function was found to be abnormal. The patient is on anti-hypertensives including Triampterene/HCTZ. She also takes Esomeprazole. She denies recent use of antiinflammatories. She has a history of degenerative disc disease of the cervical spine with past C-spine surgery. She has a history of depression related to the of her son. She admits concerns about recent decline in memory. She does not mention any recent respiratory symptoms, but her COVID 19 PCR is positive on admission. Exam Vital signs and Labs for Last 24 Hours: Temp Pulse Resp BP Pulse Ox 97.5 F L 64 12 104/64 L 98 10/05/21 14:22 10/05/21 14:22 10/05/21 14:22 10/05/21 14:22 10/05/21 14:22 Laboratory Results - last 24 hr 10/05/21 11:24: WBC 6.0, RBC 4.29, Hgb 13.1, Hct 39.6, MCV 92.2, MCH 30.6, MCHC 33.2, RDW 13.6, Plt Count 291, MPV 8.2, Neut % (Auto) 58.0, Lymph % (Auto) 24.0, [place] % (Auto) 14.4 H, Eos % (Auto) 2.7, Baso % (Auto) 0.9, Neut # (Auto) 3.5, Lymph # (Auto) 1.4, [place] # (Auto) 0.9, Eos # (Auto) 0.2, Baso # (Auto) 0.1 10/05/21 11:24: Sodium 127 L, Potassium 3.9, Chloride 92 L, Carbon Dioxide 27, Anion Gap 11.9, BUN 48 H, Creatinine 2.70 H, Estimated Creat Clear 26, Estimated GFR 18 L*, Est GFR ( Amer) 21 L, Glucose 113 H, Calcium 9.3, Total Bilirubin 0.5, AST 27, ALT 20, Alkaline Phosphatase 57, Total Protein 6.8, Albumin 4.4, Globulin 2.4, Albumin/Globulin Ratio 1.8 10/05/21 12:23: SARS-CoV-2 (PCR) Detected A, Influenza A Untype (PCR) Not detected, Influenza Type B (PCR) Not detected I & O for Last 24 hours: Intake & Output 10/03/21 10/04/21 10/05/21 10/06/21 11:59 11:59 11:59 11:59 Weight 180 lb 197 lb 7.114 oz - *Routine HEENT Exam Head: Present: normocephalic Eye: Present: EOMI, PERRL ENT: Present: mucous membranes moist. Absent: mucous membranes dry - *Routine Neck Exam Present: supple. Absent: JVD, lymphadenopathy - *Routine Respiratory Exam Present: CTA bilaterally - *Routine Cardiovascular Exam Present: RRR - *Routine Abdominal Exam Present: soft, normoactive bowel sounds. Absent: tenderness - *Routine Extremities Exam Absent: cyanosis, clubbing, edema - *Routine Skin Exam Present: warm. Absent: rash - *Routine Neurological Exam Present: alert, oriented X3 - Routine Psychiatric Exam Present: suicidal ideation (admits), depressed. Absent: normal affect (blunted), agitated Assessment and Plan (1) ELISE (acute kidney injury) Status: Acute Category: Medical Code(s): N17.9 - Acute kidney failure, unspecified (2) Near syncope Status: Acute Category: Medical Code(s): R55 - Syncope and collapse (3) Depression Status: Acute Category: Medical Code(s): F32.A - Depression, unspecified (4) Degenerative joint disease of cervical spine Status: Chronic Category: Medical Code(s): M47.812 - Spondylosis without myelopathy or radiculopathy, cervical region - Assessment and plan all Dx Assessment and Plan for all problems:: IV fluids. Medication adjustments.
--- NOTE | 2021-10-05 17:14 | HMH.HP ---
*Admission Date: 10/05/21 *Chief complaint: diarrhea and weakness *History of present illness: Ms. ruiz is a 66-year-old female with a history of hiatal hernia, cervical degenerative disc disease, and depression who experienced 2 days of diarrhea and was having difficulty with getting out of bed. She presented to [facility] emergency room for evaluation at the insistence of her . She had a telehealth visit on 10/04/2021 due to the diarrhea and had hstool studies ordered. These were not done. In the emergency room patient was given IV fluid boluses; blood pressure was somewhat low at 94/64 and 91/53. Renal function was embarrassed with a BUN of 48 and creatinine of 2.7. She was thus admitted with acute kidney injury. At the time of this exam patient is feeling more comfortable. She has not had any diarrhea or stools since yesterday. She denies abdominal pain, nausea and vomiting. She denies shortness of breath and chest pain. She states she has had a cough since experiencing a cold about 2 weeks ago. With labs in the emergency room her Covid [address] Sims did see the patient in the emergency room prior to admission to the second floor. [facility] History Medical History: Reports:: Anxiety, Depression, Gastroesophageal Reflux Disease(GERD), Hyperlipidemia, Hypertension Denies:: Cancer, Diabetes Mellitus Type 1, Diabetes Mellitus Type 2, MRSA, Seizures *Have you ever received a pneumonia vaccine?: No *Have you received a flu vaccine this season?: No Other Medical History: Reports: Anemia, Arthritis. Denies: Blood Transfusion Reaction Other Surgeries: Yes: Colonoscopy, Dilation and Curettage, Tubal Ligation Amputation: No Fractures: No Comment: Back surgery: Several cervical spine procedures. - *Social History Last grade of school completed: Some college Smoking Status: Never smoker Alcohol Intake: never Alcohol Intake Frequency:: holidays/special occasions only Substance Use Type: denies use *Occupational Status:: employed, retired Housing: house Household Members: spouse *Travel in the last 8 weeks: None - Psychiatric History Pschychiatric History:: Reports:: Anxiety, Depression Denies:: Suicide Attempt Comment: Since the of her son in 2001 she has wondered what her purpose was on this earth. She has been on meds for depression and she states these are not helping. Family Hx:: Cancer Review of Systems - Constitutional Reports fatigue, Reports lack of energy, Denies fever(s) - Eyes Denies change in vision (She does wear glasses) - ENT Denies ear pain, Denies sore throat - *Cardiovascular Denies chest pain, Denies shortness of breath, Denies leg swelling - *Respiratory Reports cough (Nonproductive) - *Gastrointestinal Reports change in bowel habits, Reports change in stools, Reports heartburn (Medicine controls this), Denies abdominal pain, Denies vomiting blood, Denies nausea, Denies vomiting - *Genitourinary Denies difficulty urinating - *Musculoskeletal Reports abnormal walking (Due to dizziness) - *Neurologic Reports dizziness (For several months.), Reports memory loss, Denies seizure-like activity, Denies headache(s) Comments: Patient states she restarted a job after being away from it for 2 years. She thought she would be able to just flow right back in with all task and job duties. She has found it very difficult and read learning and retaining the information. Meds Home Medications Medication Instructions Recorded Confirmed Type Metoprolol Succinate 100 mg PO HS 06/29/18 10/05/21 History lisinopriL [Lisinopril 20mg Tab] 20 mg PO DAILY 06/29/18 10/05/21 History triamterene 37.5 1 tab PO DAILY tab 07/23/20 10/05/21 History mg-hydrochlorothiazide 25 mg tablet esomeprazole magnesium 20 mg 20 mg PO DAILY cap 10/08/20 10/05/21 History capsule,delayed release rosuvastatin 20 mg tablet 20 mg PO DAILY tab 10/08/20 10/05/21 History gabapentin 600 mg t
[2021-10-05 18:33] LABS: Microscopic, Urine URINE MICROSCOPIC (MICROSCOPIC)
[2021-10-05 18:35] LABS: Thyroid Stimulating Hormone 0.23 uIU/mL (0.465-4.68)
[2021-10-05 18:44] LABS: Appearance,Urine CLEAR (Clear); Bilirubin,Urine Negative (Negative); Blood, Urine Negative (Negative); Color,Urine YELLOW (Yellow); Glucose,Urine (UA) Negative (Negative); Ketones,Urine Negative (Negative); Leukocyte Esterase,Urine 1+ (Negative); Nitrate,Urine Negative (Negative); PH,Urine 5.5 (5.0-8.5); Protein,Urine Negative (Negative); Urobilinogen,Urine 0.2 EU/dl (0.2)
[2021-10-06] VITALS (7 sets, daily range): BP systolic 105–147; BP diastolic 65–88; PULSE 64–96; RESP 12–20; TEMP 36.5–37; O2SAT 93–97; BMI 32.7; BMI 32.6
--- NOTE | 2021-10-06 04:57 | PC.NURSE ---
no acute changes this shift, patient has rested well and has remained on room air, O2 sats 93-96%, no complaints of pain or SOB
[2021-10-06 06:43] LABS: Chloride 102 mmol/L (98-107)
[2021-10-06 06:44] LABS: Potassium 3.7 mmoL/L (3.5-5.1); Sodium 132 mmol/L (136-145)
[2021-10-06 06:46] LABS: Blood Urea Nitrogen 42 mg/dl (7-17); Creatinine Clearance Estimated 35 mL/min (50-200); Estimated Glomerular Filt Rate 22 ml/min (>60); GFR (African American) 27 ML/MIN (>60)
[2021-10-06 06:47] LABS: Anion Gap 9.7 mEq/L (5-15); Calcium 8.5 mg/dl (8.4-10.2); Carbon Dioxide 24 mmol/L (22.0-30.0); Glucose 104 mg/dl (74-100)
[2021-10-06 06:56] LABS: Basophils # 0.1 K/mm3 (0-0.2); Basophils % 0.9 % (0.1-2.0); Eosinophils # 0.2 K/mm3 (0.0-0.4); Eosinophils % 2.4 % (0.1-12.0); Hematocrit 37.3 % (37.0-47.0); Lymphocytes # 1.2 K/mm3 (0.7-4.5); Lymphocytes % 18.8 % (10-50); Mean Corpuscular HGB Conc 32.1 g/dL (31.8-35.4); Mean Corpuscular Hemoglobin 30.3 pg (27.0-31.2); Mean Corpuscular Volume 94.3 fl (81-99); Mean Platelet Volume 8.7 fl (7.4-10.4); Monocytes # 0.6 K/mm3 (0.1-1.0); Monocytes % 9.7 % (1.7-9.3); Neutrophils # 4.5 K/mm3 (1.8-7.8); Neutrophils % 68.2 % (37.0-80.0); Platelet Count 233 K/mm3 (142-424); Red Blood Count 3.95 M/mm3 (4.20-5.40); Red Cell Distribution Width 13.4 % (11.5-17.5); White Blood Count 6.6 K/mm3 (4.8-10.8)
--- NOTE | 2021-10-06 08:37 | HMH.ACPN2 ---
Internal Medicine - PN: Subj *Date: 10/06/21 *Time: 08:37 Interval history: Patient states she is feeling well this morning. She denies any chest pain or shortness of breath. She slept well and is eating well and is anxious to get home. Exam Vital signs and Labs for Last 24 Hours: Temp Pulse Resp BP Pulse Ox 97.7 F 64 16 126/80 95 10/06/21 04:00 10/06/21 04:00 10/06/21 04:00 10/06/21 04:00 10/06/21 04:00 Laboratory Results - last 24 hr 10/05/21 11:24: WBC 6.0, RBC 4.29, Hgb 13.1, Hct 39.6, MCV 92.2, MCH 30.6, MCHC 33.2, RDW 13.6, Plt Count 291, MPV 8.2, Neut % (Auto) 58.0, Lymph % (Auto) 24.0, [place] % (Auto) 14.4 H, Eos % (Auto) 2.7, Baso % (Auto) 0.9, Neut # (Auto) 3.5, Lymph # (Auto) 1.4, [place] # (Auto) 0.9, Eos # (Auto) 0.2, Baso # (Auto) 0.1 10/05/21 11:24: Sodium 127 L, Potassium 3.9, Chloride 92 L, Carbon Dioxide 27, Anion Gap 11.9, BUN 48 H, Creatinine 2.70 H, Estimated Creat Clear 26, Estimated GFR 18 L*, Est GFR ( Amer) 21 L, Glucose 113 H, Calcium 9.3, Total Bilirubin 0.5, AST 27, ALT 20, Alkaline Phosphatase 57, Total Protein 6.8, Albumin 4.4, Globulin 2.4, Albumin/Globulin Ratio 1.8 10/05/21 12:23: SARS-CoV-2 (PCR) Detected A, Influenza A Untype (PCR) Not detected, Influenza Type B (PCR) Not detected 10/05/21 17:24: TSH 0.23 L 10/05/21 18:25: Urine Color Yellow, Urine Appearance Clear, Urine pH 5.5, Ur Specific [place] 1.010, Urine Protein Negative, Urine Glucose (UA) Negative, Urine Ketones Negative, Urine Blood Negative, Urine Nitrate Negative, Urine Bilirubin Negative, Urine Urobilinogen 0.2, Ur Leukocyte Esterase 1+ A, Urine RBC None, Urine WBC 3-5, Ur Squamous Epith Cells 3-5, Urine Bacteria None 10/06/21 05:19: WBC 6.6, RBC 3.95 L, Hgb 12.0 L, Hct 37.3, MCV 94.3, MCH 30.3, MCHC 32.1, RDW 13.4, Plt Count 233, MPV 8.7, Neut % (Auto) 68.2, Lymph % (Auto) 18.8, [place] % (Auto) 9.7 H, Eos % (Auto) 2.4, Baso % (Auto) 0.9, Neut # (Auto) 4.5, Lymph # (Auto) 1.2, [place] # (Auto) 0.6, Eos # (Auto) 0.2, Baso # (Auto) 0.1 10/06/21 05:19: Sodium 132 L, Potassium 3.7, Chloride 102, Carbon Dioxide 24, Anion Gap 9.7, BUN 42 H, Creatinine 2.20 H, Estimated Creat Clear 35, Estimated GFR 22 L, Est GFR ( Amer) 27 L D, Glucose 104 H, Calcium 8.5 I & O for Last 24 hours: Intake & Output 10/03/21 10/04/21 10/05/21 10/06/21 11:59 11:59 11:59 11:59 Intake Total 1490 / 1490 Output Total 900 / 900 Balance 590 / 590 Weight 180 lb 196 lb 8 oz Microbiology Reports for the Last 24 Hours: Microbiology 10/05/21 18:25 Urine,Clean Catch Urine Culture - Preliminary - Constitutional no acute distress - *Routine HEENT Exam Head: Present: normocephalic Eye: Present: EOMI, PERRL ENT: Present: mucous membranes moist - *Routine Neck Exam Present: supple. Absent: lymphadenopathy - *Routine Respiratory Exam Present: CTA bilaterally - *Routine Cardiovascular Exam Present: RRR - *Routine Abdominal Exam Present: soft, normoactive bowel sounds. Absent: tenderness - *Routine Extremities Exam Absent: cyanosis, clubbing, edema - *Routine Skin Exam Present: warm. Absent: rash - *Routine Neurological Exam Present: alert, oriented X3 Assessment and Plan (1) ELISE (acute kidney injury) Status: Acute Category: Medical Code(s): N17.9 - Acute kidney failure, unspecified (2) Depression Status: Chronic Category: Medical Code(s): F32.A - Depression, unspecified (3) Near syncope Status: Acute Category: Medical Code(s): R55 - Syncope and collapse (4) Degenerative joint disease of cervical spine Status: Chronic Category: Medical Code(s): M47.812 - Spondylosis without myelopathy or radiculopathy, cervical region (5) Fall Status: Acute Qualifiers: Encounter type: initial encounter Qualified Code(s): W19.XXXA - Unspecified fall, initial encounter Category: Medical Code(s): W19.XXXA - Unspecified fall, initial encounter (6) COVID-19 Status: Acute
--- NOTE | 2021-10-06 09:29 | CT_ITS ---
FINAL REPORT CLINICAL HISTORY: MEMORY LOSS, NEAR SYNCOPE COMPARISON: 06/29/2018 FINDINGS: Axial images of the head were obtained without contrast. Coronal reformatted images were also obtained.This study was performed with techniques to keep radiation doses as low as reasonably achievable (ALARA). Individualized dose reduction techniques using automated exposure control or adjustment of mA and/or kV according to the patient''s size were employed. There is no evidence of intracranial hemorrhage or mass. The ventricular size is within normal limits. There is no evidence of shift of the midline structures. No abnormal extra axial fluid collection is identified. No skull abnormality is seen on the bone window images. IMPRESSION: No acute intracranial abnormality. Reviewed, Interpreted and Dictated by Julián Alas III, MD Transcribed by Dilip Kirby Authenticated by Julián Alas III, MD on 10/06/2021 12:38:09 PM [facility]
--- NOTE | 2021-10-06 11:06 | HMH.PULMCON ---
*Admission Date: 10/05/21 *Reason for consult:: COVID-19 pneumonia *History of present illness: Ms. Kitchen is a 66-year-old female no significant smoking history, no prior respiratory complaints and received 2 days of COVID-19 vaccine presented to the hospital with acute kidney injury and found to be having COVID-19 pneumonia and pulmonary was called for further management. Patient admits symptoms at her baseline. Denies any respiratory distress. [facility] History Medical History: Reports:: Anxiety, Depression, Gastroesophageal Reflux Disease(GERD), Hyperlipidemia, Hypertension Denies:: Cancer, Diabetes Mellitus Type 1, Diabetes Mellitus Type 2, MRSA, Seizures *Have you ever received a pneumonia vaccine?: No *Have you received a flu vaccine this season?: No Other Medical History: Reports: Anemia, Arthritis. Denies: Blood Transfusion Reaction Other Surgeries: Yes: Colonoscopy, Dilation and Curettage, Tubal Ligation Amputation: No Fractures: No - *Social History Last grade of school completed: Some college Smoking Status: Never smoker Alcohol Intake: never Alcohol Intake Frequency:: holidays/special occasions only Substance Use Type: denies use *Occupational Status:: employed, retired Housing: house Household Members: spouse *Travel in the last 8 weeks: None - Psychiatric History Pschychiatric History:: Reports:: Anxiety, Depression Denies:: Suicide Attempt Family Hx:: Cancer ROS - Cons Denies anorexia, Denies body ache(s), Denies chills - ENT Denies bleeding gums, Denies nasal congestion - Card Denies shortness of breath, Denies shortness of breath with activity - Resp Respiratory: Denies cough, Denies non-productive cough, Denies cough with sputum production, Denies pain with breathing, Denies wheezing - GI Gastrointestingal: Denies: abdominal pain - [place] Musculoskeletal: Denies muscle weakness - Psych Denies thoughts of hurting/killing others, Denies thoughts of hurting/killing yourself Meds Home Medications Medication Instructions Recorded Confirmed Type Metoprolol Succinate 100 mg PO HS 06/29/18 10/05/21 History lisinopriL [Lisinopril 20mg Tab] 20 mg PO DAILY 06/29/18 10/05/21 History triamterene 37.5 1 tab PO DAILY tab 07/23/20 10/05/21 History mg-hydrochlorothiazide 25 mg tablet esomeprazole magnesium 20 mg 20 mg PO DAILY cap 10/08/20 10/05/21 History capsule,delayed release rosuvastatin 20 mg tablet 20 mg PO DAILY tab 10/08/20 10/05/21 History gabapentin 600 mg tablet 600 mg PO QID tab 11/19/20 10/05/21 History Ascorbic Acid/Vitamin E/Biotin 1 tab PO DAILY 10/05/21 10/05/21 History [Hair Skin Nails-Biotin Gummies] Cholecalciferol (Vitamin D3) 5,000 iunits PO DAILY 10/05/21 10/05/21 History [Vitamin D3] Duloxetine HCl 60 mg PO DAILY 10/05/21 10/05/21 History Quetiapine Fumarate 25 mg PO TID 10/05/21 10/05/21 History Allergies Allergy/AdvReac Type Severity Reaction Status Date / Time niacin [NIACIN] Allergy Unknown Verified 06/02/21 21:20 Exam - Constitutional Constitutional:: Present: no acute distress, comfortable - HENMT Exam HENMT: Present: normocephalic, atraumatic - Eye Exam Eyes:: Present: normal appearance both eyes and related structures - Neck Exam Neck:: Present: normal visual inspection - Respiratory Exam Respiratory:: Present: able to speak in complete sentences, no respiratory distress. Absent: rales, rhonchi, wheezing - Cardiovascular Exam Cardiac:: Present: S1, S2 - GI Exam GI:: Present: soft - Skin Exam Skin: Present: warm, no rash - Neurological Exam Neurological: Present: alert, awake, normal cognition - Extremities Exam Extremities: Present: no cyanosis, no clubbing Internal Medicine - CN: Reslt - Labs CBC & Chem 7: 10/06/21 05:19 10/06/21 05:19 Labs: Short CBC 10/05/21 10/06/21 Range/Units 11:24 05:19 WBC 6.0 6.6 (4.8-10.8) K/mm3 Hgb 13.1 12.0 L (12.2-16.2) g/dL Hct 39.6 37.3 (37.0-47.0) % Pl
[2021-10-07] VITALS: BP 138/69; PULSE 78; RESP 18; TEMP 36.6; O2SAT 95
[2021-10-07 04:00] VITALS: BP 129/75; PULSE 68; RESP 16; TEMP 36.7; O2SAT 95
[2021-10-07 05:26] VITALS: BMI 32.5
[2021-10-07 08:00] VITALS: BP 126/68; PULSE 69; RESP 20; TEMP 36.8; O2SAT 92
[2021-10-07 09:19] LABS: Chloride 104 mmol/L (98-107); Potassium 3.6 mmoL/L (3.5-5.1); Sodium 135 mmol/L (136-145)
--- NOTE | 2021-10-07 09:20 | P.PN_ITS ---
Internal Medicine - PN: Subj *Date: 10/07/21 *Time: 09:20 Interval history: Patient states she is feeling better this morning. She wants to go home because she is not sleeping well in the hospital. She denies any pain and is eating and drinking. Exam Vital signs and Labs for Last 24 Hours: Temp Pulse Resp BP Pulse Ox 98.1 F 68 16 129/75 95 10/07/21 04:00 10/07/21 04:00 10/07/21 04:00 10/07/21 04:00 10/07/21 04:00 Laboratory Results - last 24 hr 10/05/21 18:25: Urine Color Yellow, Urine Appearance Clear, Urine pH 5.5, Ur Specific [place] 1.010, Urine Protein Negative, Urine Glucose (UA) Negative, Urine Ketones Negative, Urine Blood Negative, Urine Nitrate Negative, Urine Bilirubin Negative, Urine Urobilinogen 0.2, Ur Leukocyte Esterase 1+ A, Urine RBC None, Urine WBC 3-5, Ur Squamous Epith Cells 3-5, Urine Bacteria None I & O for Last 24 hours: Intake & Output 10/04/21 10/05/21 10/06/21 10/07/21 11:59 11:59 11:59 11:59 Intake Total 1490 / 1490 360 / 360 Output Total 1400 / 1400 Balance 90 / 90 360 / 360 Weight 180 lb 196 lb 3.382 oz 195 lb 4.8 oz Microbiology Reports for the Last 24 Hours: Microbiology 10/05/21 18:25 Urine,Clean Catch Urine Culture - Final Klebsiella pneumoniae - Constitutional no acute distress - *Routine Respiratory Exam Present: CTA bilaterally - *Routine Cardiovascular Exam Present: RRR - *Routine Abdominal Exam Present: soft, normoactive bowel sounds. Absent: tenderness - *Routine Extremities Exam Absent: cyanosis, clubbing, edema - *Routine Skin Exam Present: warm. Absent: rash - *Routine Neurological Exam Present: alert, oriented X3 Assessment and Plan (1) ELISE (acute kidney injury) Status: Acute Category: Medical Code(s): N17.9 - Acute kidney failure, unspecified (2) Depression Status: Chronic Category: Medical Code(s): F32.A - Depression, unspecified (3) Near syncope Status: Acute Category: Medical Code(s): R55 - Syncope and collapse (4) Degenerative joint disease of cervical spine Status: Chronic Category: Medical Code(s): M47.812 - Spondylosis without myelopathy or radiculopathy, cervical region (5) Fall Status: Acute Qualifiers: Encounter type: initial encounter Qualified Code(s): W19.XXXA - Unspecified fall, initial encounter Category: Medical Code(s): W19.XXXA - Unspecified fall, initial encounter (6) COVID-19 Status: Acute Category: Medical Code(s): U07.1 - COVID-19 - Assessment and plan all Dx Assessment and Plan for all problems:: Patient is feeling much better, her renal function has improved. Likely stable to discharge today.
[2021-10-07 09:22] LABS: Alanine Aminotransferase 22 U/L (12-78); Albumin Level 3.6 g/dl (3.5-5.0); Albumin/Globulin Ratio 1.6 (1.1-1.8); Alkaline Phosphatase 50 U/L (38-126); Anion Gap 7.6 mEq/L (5-15); Aspartate Amino Transferase 31 U/L (14-36); Bilirubin,Total 0.3 mg/dl (0.2-1.3); Blood Urea Nitrogen 32 mg/dl (7-17); Calcium 8.6 mg/dl (8.4-10.2); Carbon Dioxide 27 mmol/L (22.0-30.0); Creatinine Clearance Estimated 40 mL/min (50-200); Estimated Glomerular Filt Rate 26 ml/min (>60); GFR (African American) 32 ML/MIN (>60); Globulin 2.3 g/dL (1.3-3.2); Glucose 134 mg/dl (74-100); Total Protein,Serum 5.9 g/dl (6.3-8.2)
[2021-10-07 09:35] LABS: Basophils % 0.4 % (0.1-2.0); Chloride 104 mmol/L (98-107); Eosinophils # 0.2 K/mm3 (0.0-0.4); Eosinophils % 3.1 % (0.1-12.0); Hematocrit 37.5 % (37.0-47.0); Hemoglobin 12.3 g/dL (12.2-16.2); Lymphocytes % 16.5 % (10-50); Mean Corpuscular HGB Conc 32.7 g/dL (31.8-35.4); Mean Corpuscular Hemoglobin 30.9 pg (27.0-31.2); Mean Corpuscular Volume 94.2 fl (81-99); Mean Platelet Volume 8.7 fl (7.4-10.4); Monocytes # 0.5 K/mm3 (0.1-1.0); Monocytes % 8.5 % (1.7-9.3); Neutrophils # 4.3 K/mm3 (1.8-7.8); Neutrophils % 71.6 % (37.0-80.0); Platelet Count 246 K/mm3 (142-424); Potassium 3.6 mmoL/L (3.5-5.1); Red Blood Count 3.98 M/mm3 (4.20-5.40); Red Cell Distribution Width 13.6 % (11.5-17.5); Sodium 135 mmol/L (136-145); White Blood Count 6.1 K/mm3 (4.8-10.8)
[2021-10-07 09:38] LABS: Anion Gap 7.6 mEq/L (5-15); Blood Urea Nitrogen 33 mg/dl (7-17); Calcium 8.7 mg/dl (8.4-10.2); Carbon Dioxide 27 mmol/L (22.0-30.0); Creatinine Clearance Estimated 42 mL/min (50-200); Estimated Glomerular Filt Rate 28 ml/min (>60); GFR (African American) 34 ML/MIN (>60); Glucose 133 mg/dl (74-100)
--- NOTE | 2021-10-07 12:14 | HMH.DCSUM ---
General - General Admission date:: 10/05/21 Discharge date: 10/07/21 HPI HPI: Ms. ruiz is a 66-year-old female with a history of hiatal hernia, cervical degenerative disc disease, and depression who experienced 2 days of diarrhea and was having difficulty with getting out of bed. She presented to [facility] emergency room for evaluation at the insistence of her . She had a telehealth visit on 10/04/2021 due to the diarrhea and had hstool studies ordered. These were not done. In the emergency room patient was given IV fluid boluses; blood pressure was somewhat low at 94/64 and 91/53. Renal function was embarrassed with a BUN of 48 and creatinine of 2.7. She was thus admitted with acute kidney injury. At the time of this exam patient is feeling more comfortable. She has not had any diarrhea or stools since yesterday. She denies abdominal pain, nausea and vomiting. She denies shortness of breath and chest pain. She states she has had a cough since experiencing a cold about 2 weeks ago. With labs in the emergency room her Covid [address] Sims did see the patient in the emergency room prior to admission to the second floor. Hospital Course Hospital Course: The patient was admitted and started on IV fluids. Her chest x-ray was normal. Her renal function improved and she felt much better after IV fluids. She continued to deny any respiratory symptoms. She had a head CT showing nothing acute. Pulmonology was consulted due to Covid diagnosis, but he did not feel any active treatment was necessary as her room air saturations were normal. He did feel she would qualify for prophylactic medications to prevent acute Covid pneumonia if the pharmacy had any in stock. By 10/07/2021 she was feeling much better but wanted to go home. Her urine culture was growing greater than 100,000 colonies of Klebsiella. She was stable to be discharged home on cefdinir as well as continue dexamethasone 6 mg for 7 more days. Objective Vital signs: Temp Pulse Resp BP Pulse Ox 98.2 F 69 20 126/68 92 L 10/07/21 08:00 10/07/21 08:00 10/07/21 08:00 10/07/21 08:00 10/07/21 08:00 Narrative: - Constitutional no acute distress Comments: She appears comfortable lying in the bed. - *Routine HEENT Exam Head: Present: normocephalic, atraumatic Eye: Present: PERRL. Absent: conjunctival icterus, scleral injection ENT: Present: mucous membranes moist, oropharynx clear - *Routine Neck Exam Present: supple. Absent: carotid bruit, lymphadenopathy, thyromegaly - *Routine Respiratory Exam Present: CTA bilaterally (Anteriorly and posteriorly) - *Routine Cardiovascular Exam Present: RRR - *Routine Abdominal Exam Present: soft, normoactive bowel sounds. Absent: tenderness, guarding - *Routine Rectal Exam Rectal:: deferred - *Routine Genitalia Exam Genitalia:: deferred - *Routine Extremities Exam Absent: edema, calf tenderness Comments: Small abrasion on her right knee as a result of a recent fall - *Routine Neurological Exam Present: alert, oriented X3 Patient was able to tell me the number of children and grandchildren along with their ages without hesitation - Routine Psychiatric Exam Present: normal thought process, good insight, depressed. Absent: suicidal ideation, auditory hallucinations, visual hallucinations Results Labs on day of discharge: Labs from last 24 hours 10/07/21 10/07/21 10/07/21 08:52 08:52 08:52 WBC 6.1 RBC 3.98 L Hgb 12.3 Hct 37.5 MCV 94.2 MCH 30.9 MCHC 32.7 RDW 13.6 Plt Count 246 MPV 8.7 Neut % (Auto) 71.6 Lymph % (Auto) 16.5 [place] % (Auto) 8.5 Eos % (Auto) 3.1 Baso % (Auto) 0.4 Neut # (Auto) 4.3 Lymph # (Auto) 1.0 [place] # (Auto) 0.5 Eos # (Auto) 0.2 Baso # (Auto) 0.0 Sodium 135 L 135 L Potassium 3.6 3.6 Chloride 104 104 Carbon Dioxide 27 27 Anion Gap
== END 2021-10-07 11:12 | disposition home or self-care (01) ==
LOC: ER 12:27 → ICU 12:50 → 2ND 10-06 14:27
PROVIDERS: Admitting Provider Family Medicine; Emergency Provider Emergency Medicine; PCP Family Medicine; Visit Provider Family Medicine
DX: N17.9 Acute kidney failure, unspecified (principal); U07.1 COVID-19; F32.A Depression, unspecified; M47.812 Spondylosis without myelopathy or radiculopathy, cervical region; J12.82 Pneumonia due to coronavirus disease 2019; Z79.899 Other long term (current) drug therapy; R55 Syncope and collapse; Z20.822 Contact with and (suspected) exposure to COVID-19
CPT/HCPCS: G0378; 36415; 70450; 71045; 80048; 80053; 81001; 84443; 85025; 87086; 87088; 87186; 93005; 96365; 96366; 99284; C9803; U0003; U0005

== ENCOUNTER → 2021-10-18 09:48 | Outpatient (CLI) | payer MEDICARE, OTHER, SELFPAY ==
--- NOTE | 2021-10-18 10:00 | US_ITS ---
FINAL REPORT CLINICAL HISTORY: HYPERTHYROIDISM COMPARISON: January 02, 2017 FINDINGS: THYROID ULTRASOUND Sonographic images of the thyroid was obtained. The right lobe of the thyroid measures 1.5 x 3.6 x 1.7 cm. The left lobe of the thyroid measures 1.5 x 4.0 x 1.4 cm. The isthmus measures 2 mm. There are small nodules bilaterally. There is a right lobe anechoic nodule measuring 5 x 4 x 3 mm, TI-RADS 1. There is a right lobe cystic and solid nodule with the solid component being isoechoic, measuring 10 x 8 x 7 mm, TI-RADS 2 There is a right lobe nodule which is solid, isoechoic and measures 9 x 6 x 6 mm, TI-RADS 3. There is a nodule in the left lobe that is cystic and solid with the solid component being isoechoic and measures 11 x 6 x 6 mm, TI-RADS 2. IMPRESSION: A direct nodule to nodule comparison is difficult but overall appearance is similar to the prior exam. Reviewed, Interpreted and Dictated by Julián Alas III, MD Transcribed by Stefanie Gil Authenticated by Julián Alas III, MD on 10/18/2021 01:03:43 PM [facility]
== END ==
PROVIDERS: PCP Family Medicine; Visit Provider Family Medicine
DX: E05.90 Thyrotoxicosis, unspecified without thyrotoxic crisis or storm (principal)
CPT/HCPCS: 76536

== ENCOUNTER → 2021-10-25 12:17 | Outpatient (CLI) | payer MEDICARE, OTHER, SELFPAY | PROVIDERS: PCP Family Medicine; Visit Provider Specialist | DX: G47.33 Obstructive sleep apnea (adult) (pediatric) (principal) | CPT/HCPCS: 94762 ==

== ENCOUNTER → 2022-05-06 09:00 | Outpatient (CLI) | payer MEDICARE, OTHER, SELFPAY ==
[2022-05-06 21:18] LABS: Alanine Aminotransferase 18 U/L (12-78); Albumin Level 4.2 g/dl (3.5-5.0); Albumin/Globulin Ratio 1.8 (1.1-1.8); Alkaline Phosphatase 74 U/L (38-126); Anion Gap 11.1 mEq/L (5-15); Aspartate Amino Transferase 27 U/L (14-36); Bilirubin,Total 0.2 mg/dl (0.2-1.3); Blood Urea Nitrogen 19 mg/dl (7-17); Calcium 9.4 mg/dl (8.4-10.2); Carbon Dioxide 29 mmol/L (22.0-30.0); Chloride 95 mmol/L (98-107); Chol/HDL Ratio 2.5 (1-3.5); Cholesterol 177 mg/dl (140-200); Estimated Glomerular Filt Rate 55 ml/min (>60); GFR (African American) 67 ML/MIN (>60); Globulin 2.4 g/dL (1.3-3.2); Glucose 127 mg/dl (74-100); HDL Cholesterol 71 mg/dl (40-60); Potassium 4.1 mmoL/L (3.5-5.1); Sodium 131 mmol/L (136-145); Total Protein,Serum 6.6 g/dl (6.3-8.2); Triglycerides 88 mg/dl (30-150); VLDL Cholesterol 18 mg/dL (0-40)
[2022-05-06 21:48] LABS: Thyroid Stimulating Hormone 0.06 uIU/mL (0.465-4.68)
[2022-05-06 22:46] LABS: 25-OH Vitamin D, Total 41.1 ng/mL (30-100)
[2022-05-11 19:01] LABS: Direct LDL Cholesterol 82 mg/dL (100-129)
== END ==
PROVIDERS: PCP Family Medicine; Visit Provider Family Medicine
DX: E78.5 Hyperlipidemia, unspecified (principal); F33.1 Major depressive disorder, recurrent, moderate; Z68.31 Body mass index [BMI] 31.0-31.9, adult; E66.9 Obesity, unspecified
CPT/HCPCS: 80053; 80061; 82306; 84443

== ENCOUNTER 2022-05-06 09:54 | Emergency (ER) | payer MEDICARE, OTHER, SELFPAY ==
[2022-05-06 10:05] VITALS: BP 160/91; PULSE 58; RESP 18; TEMP 36.8; O2SAT 96; BMI 30.4
--- NOTE | 2022-05-06 10:14 | EXP.UTC ---
Discharge Plan Disposition Patient Disposition: Home, Self-Care Condition: Good Prescriptions Prescriptions: No Action rosuvastatin 20 mg tablet 20 mg PO DAILY triamterene-hydrochlorothiazid 37.5-25 mg tablet 1 tab PO DAILY esomeprazole magnesium 20 mg capsule,delayed release(DR/EC) 20 mg PO DAILY calcium polycarbophil [FiberCon] 625 mg tablet 1,250 mg PO DAILY omega 8-fsx-gsj-fish oil 100 mg-160 mg-1,000 mg capsule 100-160-1,000 mg capsule See Rx Instructions PO .COMPLEX Rx Instructions: PO daily; sulindac 200 mg tablet 200 mg PO ONCE gabapentin 600 mg tablet 600 mg PO BID Qty: 60 3RF duloxetine 60 MG capsule,delayed release(DR/EC) 60 mg PO DAILY cholecalciferol (vitamin D3) 125 MCG capsule 5,000 iunits PO DAILY donepezil 5 MG tablet 5 mg PO HS Qty: 30 4RF metoprolol succinate 100 MG tablet extended release 24 hr 100 mg PO HS Referrals Follow up/Referrals: Alecia Sims MD [Primary Care Provider] - See instructions Activity Restrictions/Add. Instructions Additional Instructions/Restrictions: *Monitor Temp, Over the counter Motrin or Tylenol as directed/as needed Tylenol every 4 hours and Motrin every 6 hours (as long as your family doctor has told you that you can take it) for fever or pain. and straight to ER if unable to lower temp less than 101.0 after medication given *Warm salt water gargles may help to soothe the throat *Throat Lozenges? *Warm fluids like tea with honey may help to soothe the throat? *Sleep elevated *Humidifier/Vaporizer Follow up IMMEDIATELY for new or worsening symptoms or no Noticeable improvement over the next 48-72 hours. 911 for difficulty breathing or swallowing You were tested for today for COVID19 your test result should be back in the next 24-48 hours, you may checked your results on the [facility] My Health Portal Make sure to take your Vitamins Vit. C Vit D and Zinc if you can take them Clinical Impressions Clinical Impression: Exposure to COVID-19 virus Stand Alone Forms Stand Alone Forms: Work/School Release Instructions Patient Instructions: Coronavirus Disease 2019, Preventing the Spread of Coronavirus Discharge Instructions Discharge ED Provider: Apryl Rivero [facility] [place] General Stated complaint: covid exposure,runny nose Time Seen by Provider: 05/06/22 10:14 History of Present Illness Provider Complaint: Patient states that her found out he was positive for COVID this morning and she took a home test and it was neg but she wanted to get tested here States that she has been having runny nose but has had that on and off since Oct Related Data Home Medications Medication Instructions Recorded Confirmed metoprolol succinate 100 mg 100 mg PO HS Hypertension 06/29/18 01/04/22 tablet,extended release 24 hr rosuvastatin 20 mg tablet 20 mg PO DAILY Cholesterol 10/08/20 01/04/22 cholecalciferol (vitamin D3) 125 5,000 iunits PO DAILY Osteoporosis 10/05/21 01/04/22 mcg (5,000 unit) capsule duloxetine 60 mg capsule,delayed 60 mg PO DAILY Depression 10/05/21 01/04/22 release calcium polycarbophil 625 mg 1,250 mg PO DAILY 10/19/21 01/04/22 tablet (FiberCon) esomeprazole magnesium 20 mg 20 mg PO DAILY 10/19/21 01/04/22 capsule,delayed release omega 6-xpa-uxk-fish oil 100 See Rx Instructions PO .COMPLEX 10/19/21 01/04/22 mg-160 mg-1,000 mg capsule (Fish Oil) triamterene 37.5 1 tab PO DAILY 10/19/21 01/04/22 mg-hydrochlorothiazide 25 mg tablet sulindac 200 mg tablet 200 mg PO ONCE 12/16/21 01/04/22 Previous Rx's Medication Instructions Recorded donepezil 5 mg tablet 5 mg PO HS #30 tabs 10/07/21 gabapentin 600 mg tablet 600 mg PO BID Pain #60 tabs 04/10/22 Allergies Allergy/AdvReac Type Severity Reaction Status Date / Time niacin [NIACIN] Allergy Unknown Verified 01/04/22 14:48 [facility] Medical History (Updated
[2022-05-06 10:19] VITALS: BP 160/91; PULSE 58; RESP 18; TEMP 36.8; O2SAT 96
== END 2022-05-06 10:38 | disposition home or self-care (01) ==
PROVIDERS: Emergency Provider Nurse Practitioner; PCP Family Medicine
DX: R09.89 Other specified symptoms and signs involving the circulatory and respiratory systems (principal); Z20.822 Contact with and (suspected) exposure to COVID-19; I10 Essential (primary) hypertension; E78.5 Hyperlipidemia, unspecified; K21.9 Gastro-esophageal reflux disease without esophagitis; F32.A Depression, unspecified; F41.9 Anxiety disorder, unspecified; Z79.899 Other long term (current) drug therapy; Z91.018 Allergy to other foods
CPT/HCPCS: 80053; 80061; 82306; 84443; 99213; C9803; G0463; U0003; U0005

== ENCOUNTER → 2022-05-31 16:00 | Outpatient (CLI) | payer MEDICARE, OTHER, SELFPAY ==
[2022-05-31 19:07] LABS: Triiodothryronine (T3) Uptake 29 % (23.5-40.5)
[2022-05-31 19:08] LABS: Free Thyroxine Index 2.6 ug/dL (5.93-13.13); T4 (Thyroxine) 8.9 ug/dl (5.53-11.0)
[2022-05-31 19:22] LABS: Thyroid Stimulating Hormone 0.47 uIU/mL (0.465-4.68)
[2022-06-02 09:26] LABS: Thyroid Peroxidase Antibodies 12 IU/mL (0-34)
== END ==
PROVIDERS: PCP Family Medicine; Visit Provider Family Medicine
DX: E05.90 Thyrotoxicosis, unspecified without thyrotoxic crisis or storm (principal); R94.6 Abnormal results of thyroid function studies
CPT/HCPCS: 84436; 84443; 84479; 86376

== ENCOUNTER 2022-06-19 11:16 | Emergency (ER) | payer MEDICARE, OTHER, SELFPAY ==
[2022-06-19 11:18] VITALS: BP 149/83; PULSE 66; RESP 18; TEMP 36.6; O2SAT 96
--- NOTE | 2022-06-19 11:44 | HMH.EDGENADL ---
Discharge Plan Disposition Patient Disposition: Home, Self-Care Condition: Good Prescriptions Prescriptions: No Action rosuvastatin 20 mg tablet 20 mg PO DAILY triamterene-hydrochlorothiazid 37.5-25 mg tablet 1 tab PO DAILY omega 9-znu-kaw-fish oil 100 mg-160 mg-1,000 mg capsule 100-160-1,000 mg capsule See Rx Instructions PO .COMPLEX Rx Instructions: PO daily; gabapentin 600 mg tablet 600 mg PO QID Myrbetriq 25 mg tablet extended release 24 hr 25 mg PO DAILY potassium chloride 10 mEq tablet extended release 10 meq PO DAILY sulindac 200 mg tablet 200 mg PO ONCE esomeprazole magnesium 20 mg capsule,delayed release(DR/EC) 20 mg PO DAILY Qty: 90 1RF tramadol 100 mg tablet extended release 24 hr 100 mg PO DAILY Qty: 30 1RF lisinopril 20 mg tablet 20 mg PO DAILY Qty: 90 1RF duloxetine 60 MG capsule,delayed release(DR/EC) 60 mg PO DAILY cholecalciferol (vitamin D3) 125 MCG capsule 5,000 iunits PO DAILY donepezil 5 MG tablet 5 mg PO HS Qty: 30 4RF metoprolol succinate 100 MG tablet extended release 24 hr 100 mg PO HS Referrals Follow up/Referrals: Alecia Sims MD [Primary Care Provider] - See instructions Activity Restrictions/Add. Instructions Additional Instructions/Restrictions: You were evaluated in the emergency department today for redness of the left eye and diagnosed with a subconjunctival hemorrhage. Please follow-up outpatient with optometry over the next [address] Roland Araujo. [facility] [place] [address], . Return to the emergency department for any new or worsening symptoms, such as changes in vision, significant pain of your eye, or other concerns. Clinical Impressions Clinical Impression: Non-traumatic subconjunctival hemorrhage of left eye Instructions Patient Instructions: DI for Subconjunctival Hemorrhage Discharge ED Provider: Christie Sanchez General Adult HPI General Chief complaint: Eye Problems Stated complaint: blurry vision in Lt eye, irritated Time Seen by Provider: 06/19/22 11:29 Mode of Arrival: Ambulatory Source of Information: Patient Limitations: No Limitations Description of Symptoms (Recalled from ER Triage Doc. by RN): c/o left eye redness and slight blurry. left eye 20/30 and right eye 20/30 with correction. Denies any known injury History of Present Illness HPI narrative: This patient is a 67-year-old female with history of BRIAN, hypothyroidism, and degenerative disc disease presenting to the emergency department for evaluation of redness to her left eye. She states that she first noted this yesterday but it noted it was worse when she woke up this morning. She denies any eye pain, eye trauma, blurry vision, changes in vision, eye irritation, double vision, pain with extraocular movements, or other concerns. She states that the only thing she can think of as far as straining may use she was lifting heavy totes yesterday. She denies any sneezing, cough, vomiting, or other concerns. She is not a contact lens wearer. Related Data Home Medications Medication Instructions Recorded Confirmed metoprolol succinate 100 mg 100 mg PO HS Hypertension 06/29/18 06/03/22 tablet,extended release 24 hr rosuvastatin 20 mg tablet 20 mg PO DAILY Cholesterol 10/08/20 06/03/22 cholecalciferol (vitamin D3) 125 5,000 iunits PO DAILY Osteoporosis 10/05/21 06/03/22 mcg (5,000 unit) capsule duloxetine 60 mg capsule,delayed 60 mg PO DAILY Depression 10/05/21 06/03/22 release omega 7-cck-ngw-fish oil 100 See Rx Instructions PO .COMPLEX 10/19/21 06/03/22 mg-160 mg-1,000 mg capsule (Fish Oil) triamterene 37.5 1 tab PO DAILY 10/19/21 06/03/22 mg-hydrochlorothiazide 25 mg tablet sulindac 200 mg tablet 200 mg PO ONCE 12/16/21 06/03/22 gabapentin 600 mg tablet 600 mg PO QID Pain 05/31/22 06/03/22 mirabegron 25 mg tablet,extended 25 mg PO DAILY
[2022-06-19 12:04] VITALS: BP 149/83; PULSE 66; RESP 18; TEMP 36.6; O2SAT 96
== END 2022-06-19 12:06 | disposition home or self-care (01) ==
PROVIDERS: Emergency Provider Emergency Medicine; PCP Family Medicine
DX: H11.32 Conjunctival hemorrhage, left eye (principal); E87.1 Hypo-osmolality and hyponatremia; I10 Essential (primary) hypertension; E78.5 Hyperlipidemia, unspecified; K21.9 Gastro-esophageal reflux disease without esophagitis; E03.9 Hypothyroidism, unspecified; F32.A Depression, unspecified; F41.9 Anxiety disorder, unspecified; Z79.1 Long term (current) use of non-steroidal anti-inflammatories (NSAID); Z79.899 Other long term (current) drug therapy; Z82.49 Family history of ischemic heart disease and other diseases of the circulatory system; Z83.3 Family history of diabetes mellitus; Z80.9 Family history of malignant neoplasm, unspecified
CPT/HCPCS: 99282

== ENCOUNTER → 2022-06-27 12:50 | Outpatient (POV) | payer MEDICARE, OTHER, SELFPAY ==
[2022-06-27 13:03] VITALS: BP 135/78; PULSE 67; RESP 18; TEMP 36.7; O2SAT 97; BMI 29.7
--- NOTE | 2022-06-27 13:38 | EXP.PAIN.OV ---
HPI Data of Consult Patient: known to practice within the last 3 years Consult date: 06/27/22 Requesting Physician: Christie Glover APRN Primary Care Provider: Andreas Sims MD Consult Narrative Reason for consult: Neck pain History of present illness: Ms. Kitchen is a 67 year old female who presents today as a new patient. She is a referral from Dr. Sims's office. Today she rates her pain a 8 out of 10 and states the pain is primarily in her neck. Patient was a previous patient in our clinic back in 2020. Patient states she has not had any specific injury or trauma however this pain has worsened over time. She describes this as a constant, throbbing sensation that is worse with increased activity. She does state this was the same pain that we treated her in 2020 for. Patient states that she is having increased difficulty with range of motion of her neck due to the pain. Patient states that she has had surgery in 2009 and 2017 on her cervical spine. She states she did see a pain specialist in [facility] where they did cervical RFA's that helped with her migraines however did not make much difference in her pain. Patient has also been to physical therapy in the past however this made her pain worse and she has tried multiple occasions. Patient is also been to acupuncture that did not provide additional improvement of her symptoms. Patient has tried heat and ice and topicals with no relief. Patient is currently managed with gabapentin 600 mg 4 times a day by Dr. Sims's office. Patient denies any side effects from this medication. She states this medication does help manage her pain symptoms. She was also previously given tramadol 100 mg however she states she stopped taking this due to her anxiety of being on a pain medication. Patient states she does continue to work and would like to stay active and is interested in any possible options to provide better pain relief. Her Julian is [phone] with a morphine equivalent of 20. It has been reviewed and appropriate. CC: Christie Glover APRN [facility] [place] Medical History Anxiety Depression History of gastroesophageal reflux (GERD) Hyperlipidemia Hypertension Hyperthyroidism Hyperthyroidism determined by thyroid function test Hyponatremia Surgical History History of spinal surgery Family History Other Cancer Coronary artery disease Diabetes Social History (Updated 06/27/22 @ 13:05 by Karen Randle RN) Smoking Status: Never smoker alcohol intake: never substance use type: denies use current occupational status: employed Travel in the last 8 weeks: None household members: spouse housing: house number of children: 2 current occupation: [employer] current occupational exposures/hazards: No caffeine: Yes Review of Systems Review of Systems Review of systems:: pertinent systems reviewed and negative unless documented below Review of systems (narrative): Review of Systems: General: No recent weight changes, no fever, no sleep disturbances Respiratory: No cough, no shortness of air, no recurring pulmonary infections Cardiovascular/peripheral vascular: No chest pain, no palpitations, no edema, no shortness of breath Gastrointestinal: No new onset incontinence, normal bowel movements reported Genitourinary: No new onset incontinence Musculoskeletal: Neck pain Psychiatric: [Normal mood/affect] Neurological: [Denies weakness in extremities], [denies balance issues] Meds Home Medications and Allergies Home Medications Medication Instructions Recorded Confirmed Type metoprolol succinate 100 mg 100 mg PO HS Hypertension 06/29/18 06/27/22 History tablet,extended release 24 hr rosuvastatin 20 mg tablet 20 mg PO DAILY Cholesterol 10/08/20 06/27/22 History cholecalciferol (vitamin
== END | disposition home or self-care (01) ==
PROVIDERS: PCP Psychiatry & Neurology Sleep Medicine; Visit Provider Nurse Practitioner Family
DX: M50.30 Other cervical disc degeneration, unspecified cervical region (principal); M47.812 Spondylosis without myelopathy or radiculopathy, cervical region; M48.02 Spinal stenosis, cervical region
CPT/HCPCS: 99202; G0463

== ENCOUNTER → 2022-07-05 11:17 | Outpatient (CLI) | payer MEDICARE, OTHER, SELFPAY ==
--- NOTE | 2022-07-05 11:23 | MR_ITS ---
FINAL REPORT CLINICAL HISTORY: NECK PAIN neck jpain x years hx surgery left arm n/t bilateral hands numbness pain up into head COMPARISON: 07/25/2020 FINDINGS: Multiplanar MR imaging of the cervical spine was performed without contrast. There is fusion of C5-6 On the sagittal T2-weighted images, disc degeneration is seen at multiple levels. There is no evidence of fracture. There is mild anterolisthesis of C3 on C4 which is worse and mild retrolisthesis of C4 on C5 which is stable. The cervical spinal cord has an unremarkable appearance without evidence of mass, edema or syrinx. No significant canal stenosis is identified. The cervicomedullary junction is normal. C2-3: Bilateral uncovertebral osteophytes are present with moderate left neural foraminal narrowing. There is no significant canal stenosis. C3-4: An annular disc bulge and bilateral uncovertebral osteophytes are present with mild right and severe left neural foraminal narrowing. There is no significant canal stenosis. C4-5: A disc osteophyte complex is present with severe right and moderate left neural foraminal narrowing. There is no significant canal stenosis. C5-6: There is fusion at this level. There is mild left neural foraminal narrowing. There is no significant canal stenosis. C6-7: A disc osteophyte complex is present with mild right and moderate left neural foraminal narrowing. There is no significant canal stenosis. C7-T1: There is no significant canal stenosis or neural foraminal narrowing. IMPRESSION: Multilevel degenerative disc disease and spondylosis with areas of neural foraminal narrowing which is worse on the left at C3-4 and worse on the right at C4-5. Postoperative changes from fusion at C5-6. Reviewed, Interpreted and Dictated by Julián Alas III, MD Transcribed by Stefanie Gil Authenticated and [facility]
== END ==
PROVIDERS: PCP Family Medicine; Visit Provider Nurse Practitioner Family
DX: M47.812 Spondylosis without myelopathy or radiculopathy, cervical region (principal); R20.0 Anesthesia of skin; R20.2 Paresthesia of skin
CPT/HCPCS: 72141; 76376

== ENCOUNTER 2022-07-08 12:44 | Day surgery (SDC) | payer MEDICARE, OTHER, SELFPAY ==
[2022-07-08 13:13] VITALS: BP 152/78; PULSE 67; RESP 18; TEMP 36.6; O2SAT 98; BMI 30.7
[2022-07-08 13:57] VITALS: BP 181/90; PULSE 68; RESP 18
[2022-07-08 14:02] VITALS: BP 181/90; PULSE 68; RESP 18; O2SAT 98
[2022-07-08 14:14] VITALS: BP 141/66; PULSE 60; RESP 18; O2SAT 98
--- NOTE | 2022-07-08 14:39 | EXP.PAIN.PRO ---
Procedure Date: 07/08/22 Time: 14:39 Anesthesiologist:: Terry Meza MD Complications:: None Pre-procedure Diagnosis:: Degenerative disc disease of the cervical spine with cervical radiculopathy symptoms. Postlaminectomy syndrome cervical spine Post-procedure Diagnosis:: Same Indications for Procedure:: Patient is a pleasant 67-year-old white female who we are treating for neck pain with cervical radicular symptoms. She does have MRI which shows previous fusion and degenerative changes worse at C3-C4 and C4-C5. This is above the level of fusion. We will plan on a cervical epidural steroid injection today to help her with her pain symptoms. Procedure Details:: Cervical epidural steroid injection under fluoroscopy Informed consent was obtained and the risks and benefits of the procedure was explained to the patient. The patient was taken to the procedure room placed prone on the procedure table. The neck was prepped using ChloraPrep. The skin and subcutaneous tissues were anesthetized using lidocaine. I placed a 18-gauge epidural needle into the C5-C6 interspace and advanced using [id number] to air and fluoroscopic guidance. After confirmation of needle placement in the epidural space with dye, I injected 3 mL's lidocaine 1.5% and Depo-Medrol 80 mg. The patient tolerated the procedure well with no complications. Plan and Disposition:: We will follow-up with her in 2 weeks. Will reevaluate symptoms at that time. We will also refer her to Dr. Jasso as she may need repeat surgery and extension of her fusion.
== END 2022-07-08 14:15 | disposition home or self-care (01) ==
PROVIDERS: PCP Psychiatry & Neurology Sleep Medicine; Visit Provider Nurse Anesthetist, Certified Registered
DX: M50.122 Cervical disc disorder at C5-C6 level with radiculopathy (principal); M96.1 Postlaminectomy syndrome, not elsewhere classified
CPT/HCPCS: 62321; J1040; Q9966

== ENCOUNTER → 2022-07-21 09:28 | Outpatient (POV) | payer MEDICARE, OTHER, SELFPAY ==
--- NOTE | 2022-07-21 10:13 | EXP.PAIN.SOA ---
[facility] Pain Management SOAP Note Subjective:: Patient is a pleasant 67-year-old female who presents today for follow-up of cervical epidural steroid injection at C5-C6 on 07/08/2022. We are currently treating the patient for degenerative disc disease of cervical spine with cervical spondylosis, cervical spinal stenosis, neck pain. Today the patient states that she has had 0% relief following this injection and actually feels like it may have worsened her symptoms. Patient rates her pain a 8 out of 10. Patient states she did previously have a couple of falls since our last visit in June. Patient states that she had gotten up from bed in the middle of the night and was extremely fatigued and bumped into some items causing her to stumble. Patient denies any significant trauma from these episodes. Patient states the pain she experiences is the same pain she has been experiencing. She states that she has limited range of motion of her neck due to the pain and is worse with increased activity. Patient has been to physical therapy in the past however it made her symptoms worse. Patient has also tried heat and ice and topicals with no relief. Patient is currently managed with gabapentin 600 mg 4 times a day from Dr. Sims's office. Patient denies any side effects from this medication. She states this medication does help with some of her symptoms. Patient has been taking baclofen 10 mg at night and states this does provide some improvement of her symptoms. She is requesting a refill at today's visit. She is scheduled to see Dr. Jasso in September for possible surgery recommendations. Her Julian is [phone]. It has been reviewed and appropriate. Review of Systems: General: No recent weight changes, no fever, no sleep disturbances Respiratory: No cough, no shortness of air, no recurring pulmonary infections Cardiovascular/peripheral vascular: No chest pain, no palpitations, no edema, no shortness of breath Gastrointestinal: No new onset incontinence, normal bowel movements reported Genitourinary: No new onset incontinence Musculoskeletal: Neck pain Psychiatric: [Normal mood/affect] Neurological: [Denies weakness in extremities], [denies balance issues] Objective:: Physical Exam: General: Alert and oriented x3, no acute distress, pleasant and cooperative Lungs: Respirations even and unlabored, symmetrical chest expansion Eyes: PERRL Musculoskeletal: Flexion and extension of cervical [spine] somewhat guarded secondary to pain, [antalgic gait noted] extreme point tenderness along bilateral cervical paraspinous and bilateral trapezius muscles Neurological: Speech clear, no gross sensory deficit Assessment:: Degenerative disc disease of cervical spine with cervical spondylosis and cervical spinal stenosis, neck pain, myofascial pain of bilateral cervical paraspinous and bilateral trapezius Plan:: Patient continues to experience significant pain in her neck. Patient did have limited range of motion of her cervical spine and extreme point tenderness at bilateral cervical paraspinous and bilateral trapezius muscles during today's exam. I have recommended that she may benefit from trigger point injections at the sites. Risk and benefits were discussed with the patient. She would like to proceed forward with this plan of care. I will refill her baclofen 10 mg at bedtime and provide a 1 month supply of this medication. I will also order the patient a compounding cream at today's visit. We will schedule the patient for TPI of bilateral cervical paraspinous and bilateral trapezius muscles. Patient has been instructed to contact the clinic with any concerns before the next appointment. Dr. Meza has reviewed this note and agrees with this plan of care. This note was dictated using voice recognition software and make contain errors or omissions. [facility] Medical History Anxiety Depression History of gastroesophageal r
[2022-07-21 10:32] VITALS: BP 121/76; PULSE 58; RESP 18; O2SAT 97; BMI 30.7
== END | disposition home or self-care (01) ==
PROVIDERS: PCP Psychiatry & Neurology Sleep Medicine; Visit Provider Nurse Practitioner Family
DX: M50.322 Other cervical disc degeneration at C5-C6 level (principal); M48.02 Spinal stenosis, cervical region; M79.18 Myalgia, other site
CPT/HCPCS: 99212; G0463

== ENCOUNTER 2022-08-02 10:06 | Day surgery (SDC) | payer MEDICARE, OTHER, SELFPAY ==
[2022-08-02 10:14] VITALS: BP 120/65; PULSE 62; RESP 18; TEMP 36.7; O2SAT 98; BMI 30.7
[2022-08-02 10:42] VITALS: BP 151/73; PULSE 60; RESP 18; O2SAT 98
[2022-08-02 10:43] VITALS: BP 151/73; PULSE 60; RESP 18; O2SAT 98
[2022-08-02 10:47] VITALS: BP 131/61; PULSE 61; RESP 18; O2SAT 98
--- NOTE | 2022-08-02 10:47 | EXP.PAIN.PRO ---
Procedure Date: 08/02/22 Time: 11:27 Anesthesiologist:: Luis Gray CRNA Complications:: None Pre-procedure Diagnosis:: Degenerative disc disease of cervical spine with cervical spondylosis, cervical spinal stenosis, neck pain, myofascial pain of bilateral cervical paraspinous and bilateral trapezius Post-procedure Diagnosis:: Same Indications for Procedure:: Patient is a pleasant 67-year-old female who presents today for trigger point injections of bilateral cervical paraspinous and bilateral trapezius muscles. We are currently treating the patient for degenerative disc disease of cervical spine with cervical spondylosis, cervical spinal stenosis, neck pain, myofascial pain of bilateral cervical paraspinous and bilateral trapezius. Patient rates her pain a 8 out of 10 today. Patient denies any new trauma or injury. Patient denies any change of location or type of pain she experiences. Patient states that she continues to have decreased range of motion due to the pain. Patient was recently prescribed compounding cream that she does state does provide additional improvement of her symptoms. Patient is currently prescribed gabapentin 600 mg 4 times a day from Dr. Sims's office. Patient is also prescribed baclofen 10 mg at night. Patient is scheduled to see Dr. Jasso in September for possible surgery recommendations. General: Alert and oriented x3, no acute distress, pleasant and cooperative Lungs: Respiration even unlabored, symmetrical chest expansion Eyes: PERRL Musculoskeletal: Flexion and extension of cervical spine somewhat guarded secondary to pain, antalgic gait noted. Extreme point tenderness along bilateral cervical paraspinous and bilateral trapezius Neurological: Speech clear, no gross sensory deficit Procedure Details:: Informed consent was obtained and the risk and benefits of the procedure were explained to the patient. The patient was taken to the procedure room where noninvasive monitoring was placed including a noninvasive blood pressure cuff and a pulse oximeter. Neck and upper trapezius on bilateral sides were prepped with ChloraPrep as a cleansing solution. Trigger points were palpated and marked. Each of these trigger points were injected with bupivacaine 0.25% 2 mL and Depo-Medrol 20 mg. A total of 80 mg Depo-Medrol was used for each trigger point of bilateral cervical paraspinous and bilateral upper trapezius muscles. Needle was withdrawn and sterile bandages placed over the injection sites. Patient tolerated the procedure well with no complications. Plan and Disposition:: Patient was monitored in the clinic setting for short period of time following this procedure and discharged neurologically intact. We will see the patient back in 2 weeks for follow-up. Patient has been counseled to contact the office with any questions or concerns before her next appointment date. Dr. Meza has read this note and agrees with this plan of care. This note was dictated using voice recognition software and may contain errors or omissions.
== END 2022-08-02 10:47 | disposition home or self-care (01) ==
PROVIDERS: PCP Family Medicine; Visit Provider Nurse Anesthetist, Certified Registered
DX: M50.30 Other cervical disc degeneration, unspecified cervical region (principal); M79.12 Myalgia of auxiliary muscles, head and neck; M48.02 Spinal stenosis, cervical region; M47.812 Spondylosis without myelopathy or radiculopathy, cervical region
CPT/HCPCS: 20552; J1040

== ENCOUNTER → 2022-08-03 11:10 | Outpatient (CLI) | payer MEDICARE, OTHER, SELFPAY ==
[2022-08-03 18:39] LABS: Adenovirus,PCR Not Detected (NotDetected); Bordetella Pertussis Not Detected (NotDetected); Chlamydophila Pneumoniae, PCR Not Detected (NotDetected); Coronavirus 19, PCR Not Detected (NotDetected); Coronavirus 229E Not Detected (NotDetected); Coronavirus NL63 Not Detected (NotDetected); Coronavirus OC43 Not Detected (NotDetected); Coronovirus HKU1,PCR Not Detected (NotDetected); Human Metapneumovirus Not Detected (NotDetected); Influenza A, PCR Not Detected (NotDetected); Influenza AH1, 2009 Not Detected (NotDetected); Influenza AH1, PCR Not Detected (NotDetected); Influenza AH3,PCR Not Detected (NotDetected); Influenza B, PCR Not Detected (NotDetected); Mycoplasma Pneumoniae, PCR Not Detected (NotDetected); Parainfluenza 1, PCR Not Detected (NotDetected); Parainfluenza 2, PCR Not Detected (NotDetected); Parainfluenza 3, PCR Not Detected (NotDetected); Parainfluenza 4, PCR Not Detected (NotDetected); Respiratory Syncytial Virus Not Detected (NotDetected); Rhinovirus/Enterovirus Not Detected (NotDetected)
[2022-08-03 18:49] LABS: Basophils # 0.1 K/mm3 (0-0.2); Basophils % 1.6 % (0.1-2.0); Eosinophils % 0.7 % (0.1-12.0); Hematocrit 38.5 % (37.0-47.0); Hemoglobin 12.3 g/dL (12.2-16.2); Lymphocytes # 0.6 K/mm3 (0.7-4.5); Mean Corpuscular HGB Conc 31.9 g/dL (31.8-35.4); Mean Corpuscular Hemoglobin 30.2 pg (27.0-31.2); Mean Corpuscular Volume 94.5 fl (81-99); Mean Platelet Volume 9.7 fl (7.4-10.4); Monocytes # 0.7 K/mm3 (0.1-1.0); Monocytes % 11.7 % (1.7-9.3); Neutrophils # 4.7 K/mm3 (1.8-7.8); Neutrophils % 77.2 % (37.0-80.0); Platelet Count 235 K/mm3 (142-424); Red Blood Count 4.08 M/mm3 (4.20-5.40); Red Cell Distribution Width 13.3 % (11.5-17.5); White Blood Count 6.1 K/mm3 (4.8-10.8)
== END ==
PROVIDERS: PCP Nurse Practitioner; Visit Provider Nurse Practitioner
DX: R05.9 Cough, unspecified (principal)
CPT/HCPCS: 85025; 87581; 87632; 87798; C9803; U0003; U0005

== ENCOUNTER 2022-08-07 05:04 | Emergency (ER) | payer MEDICARE, OTHER, SELFPAY ==
[2022-08-07] VITALS (7 sets, daily range): BP systolic 142–168; BP diastolic 76–91; PULSE 50–60; RESP 11–19; TEMP 36.8–37; O2SAT 93–100; BMI 29.7
--- NOTE | 2022-08-07 05:12 | ECG_ITS ---
APPROVED REPORT Exam: Resting ECG HR:54 bpm ECG Measurements Heart Rate 54 AXES NC 174 P 71 QRSd 82 QRS -13 QT 423 T 41 QTc 409 Conclusion SINUS BRADYCARDIA LOW QRS VOLTAGE IN PRECORDIAL LEADS [QRS DEFLECTION < 1.0 mV IN CHEST LEADS] MINIMAL ST DEPRESSION [0.025+ mV ST DEPRESSION] BORDERLINE ECG UNCONFIRMED REPORT Electronically signed by : Kameron Ayala MD 08/07/2022 09:32:43
--- NOTE | 2022-08-07 05:45 | CT_ITS ---
PROCEDURE INFORMATION: Exam: CT Head Without Contrast Exam date and time: 08/07/2022 6:01 AM Age: 67 years old Clinical indication: Dizziness; Additional info: Possible confusion, fogginess, off balance TECHNIQUE: Imaging protocol: Computed tomography of the head without contrast. Radiation optimization: All CT scans at this facility use at least one of these dose optimization techniques: automated exposure control; mA and/or kV adjustment per patient size (includes targeted exams where dose is matched to clinical indication); or iterative reconstruction. COMPARISON: CT HEAD/BRAIN WO CON 10/06/2021 11:18 AM FINDINGS: Brain: No evidence of acute intracranial hemorrhage. No acute parenchymal edema. No mass or shift. Cerebral ventricles: No ventriculomegaly. Paranasal sinuses: Visualized sinuses are unremarkable. No fluid levels. Mastoid air cells: Unremarkable as visualized. No mastoid effusion. Bones/joints: No acute fracture. Soft tissues: Unremarkable. IMPRESSION: No acute intracranial process.
--- NOTE | 2022-08-07 05:45 | XR_ITS ---
PROCEDURE INFORMATION: Exam: XR Chest Exam date and time: 08/07/2022 5:48 AM Age: 67 years old Clinical indication: Cough TECHNIQUE: Imaging protocol: Radiologic exam of the chest. Views: 2 views. COMPARISON: CR XR CHEST PORTABLE 10/05/2021 12:09 PM FINDINGS: Lungs: Unremarkable. No consolidation. Pleural spaces: Unremarkable. No pleural effusion. No pneumothorax. Heart/Mediastinum: Unremarkable. No cardiomegaly. Bones/joints: Unremarkable. IMPRESSION: No acute cardiopulmonary process.
--- NOTE | 2022-08-07 05:45 | PC.NURSE ---
Spoke with Tom at [facility] for medication clarification. [facility] was consulted to clarify medications that should be strictly avoided with alcohol. Per Tom, Gabapentin and Donepezil should be avoided while drinking alcohol.
[2022-08-07 05:59] LABS: Basophils # 0.1 K/mm3 (0-0.2); Basophils % 1.2 % (0.1-2.0); Eosinophils % 0.8 % (0.1-12.0); Hematocrit 37.5 % (37.0-47.0); Hemoglobin 12.6 g/dL (12.2-16.2); Lymphocytes # 1.6 K/mm3 (0.7-4.5); Lymphocytes % 28.9 % (10-50); Mean Corpuscular HGB Conc 33.5 g/dL (31.8-35.4); Mean Corpuscular Hemoglobin 29.7 pg (27.0-31.2); Mean Corpuscular Volume 88.8 fl (81-99); Mean Platelet Volume 8.4 fl (7.4-10.4); Monocytes # 0.7 K/mm3 (0.1-1.0); Monocytes % 12.5 % (1.7-9.3); Neutrophils # 3.1 K/mm3 (1.8-7.8); Neutrophils % 56.5 % (37.0-80.0); Platelet Count 243 K/mm3 (142-424); Red Blood Count 4.23 M/mm3 (4.20-5.40); Red Cell Distribution Width 13.6 % (11.5-17.5); White Blood Count 5.5 K/mm3 (4.8-10.8)
[2022-08-07 06:03] LABS: Chloride 99 mmol/L (98-107); Potassium 3.8 mmoL/L (3.5-5.1); Sodium 133 mmol/L (136-145)
[2022-08-07 06:05] LABS: Alanine Aminotransferase 34 U/L (12-78); Albumin Level 4.1 g/dl (3.5-5.0); Albumin/Globulin Ratio 1.7 (1.1-1.8); Alkaline Phosphatase 80 U/L (38-126); Anion Gap 6.8 mEq/L (5-15); Aspartate Amino Transferase 39 U/L (14-36); Bilirubin,Total 0.3 mg/dl (0.2-1.3); Blood Urea Nitrogen 13 mg/dl (7-17); Carbon Dioxide 31 mmol/L (22.0-30.0); Creatinine Clearance Estimated 67 mL/min (50-200); Estimated Glomerular Filt Rate 49 ml/min (>60); GFR (African American) 60 ML/MIN (>60); Globulin 2.4 g/dL (1.3-3.2); Total Protein,Serum 6.5 g/dl (6.3-8.2)
[2022-08-07 06:06] LABS: Calcium 8.9 mg/dl (8.4-10.2); Glucose 87 mg/dl (74-100)
[2022-08-07 06:08] LABS: Ethyl Alcohol < 10 mg/dl (0-10)
[2022-08-07 06:20] LABS: Coronavirus 19, PCR Not Detected (NotDetected); Influenza B, PCR Not Detected (NotDetected)
[2022-08-07 06:23] LABS: T4 (Thyroxine) 7.5 ug/dl (5.53-11.0)
[2022-08-07 06:24] LABS: Microscopic, Urine URINE MICROSCOPIC (MICROSCOPIC)
[2022-08-07 06:25] LABS: Appearance,Urine CLEAR (Clear); Bilirubin,Urine Negative (Negative); Blood, Urine Negative (Negative); Color,Urine YELLOW (Yellow); Glucose,Urine (UA) Negative (Negative); Ketones,Urine Negative (Negative); Leukocyte Esterase,Urine 2+ (Negative); Nitrate,Urine Negative (Negative); Protein,Urine Negative (Negative); Specific Gravity, Urine <= 1.005 (1.005-1.030); Urobilinogen,Urine 0.2 EU/dl (0.2)
[2022-08-07 06:26] LABS: Troponin I < 0.01 ng/ml (0.00-0.034)
[2022-08-07 06:36] LABS: Thyroid Stimulating Hormone 0.43 uIU/mL (0.465-4.68)
[2022-08-07 06:40] LABS: Bacteria,Urine Trace /lpf; Squamous Epithelial Cell,Urine Occasional #/hpf (0-5)
--- NOTE | 2022-08-07 06:46 | HMH.EDNEU ---
Discharge Plan Disposition Patient Disposition: Home, Self-Care Chief Complaint: Neuro Symptoms/Deficit Prescriptions Prescriptions: No Action triamterene-hydrochlorothiazid 37.5-25 mg tablet 1 tab PO DAILY omega 0-zhd-spk-fish oil 100 mg-160 mg-1,000 mg capsule 100-160-1,000 mg capsule 1 cap PO DAILY Rx Instructions: PO daily; Myrbetriq 25 mg tablet extended release 24 hr 25 mg PO DAILY potassium chloride 10 mEq tablet extended release 10 meq PO DAILY biotin 10,000 mcg capsule 10,000 mcg PO DAILY duloxetine 60 mg capsule,delayed release(DR/EC) 60 mg PO DAILY Qty: 30 1RF metoprolol succinate 100 mg tablet extended release 24 hr 100 mg PO HS Qty: 90 1RF rosuvastatin 20 mg tablet 20 mg PO DAILY Qty: 30 4RF cholecalciferol (vitamin D3) 125 MCG capsule 5,000 iunits PO DAILY donepezil 5 MG tablet 5 mg PO HS esomeprazole magnesium 20 mg capsule,delayed release(DR/EC) 20 mg PO DAILY baclofen 10 mg tablet 10 mg PO HS gabapentin 600 mg tablet 600 mg PO QID methylprednisolone 24 mg Tablet 24 mg PO BID cefdinir 300 mg Capsule 300 mg PO BID Referrals Follow up/Referrals: Alecia Sims MD [Primary Care Provider] - See instructions Clinical Impressions Clinical Impression: Flu syndrome, Vertigo Instructions Patient Instructions: DI for Benign Paroxysmal Positional Vertigo Discharge ED Provider: Wilfredo Yañez Neuro HPI General Chief Complaint: Neuro Symptoms/Deficit Stated Complaint: Off balance,confused,everything is off Time Seen by Provider: 08/07/22 06:50 Mode of Arrival: Family Vehicle Source of Information: Patient and Spouse Limitations: No Limitations Description of Symptoms (Recalled from ER Triage Doc. by RN): Pt c/o off balance, Careful about steps , feeling foggy, and maybe confused . Pt states she is being treated for Bronchitis since mon (08/03). Last night, she decided to have a beer and before finihsing it she had a near fall and has been off ever since . She denies falling down. She continued to feel off this morning, prompting her to come to ER. Denies SOA, chest pain, or fever/chills. She also reports that she had trigger point injections ot her cervical region on Monday (08/02). History of Present Illness HPI Narrative: pt with feeling of off-balance starting last pm - after drinking 1 beer - pt has been on abx this week for bronchitis and reported neg flu in pcp office - no fever or trauma - no focal neuro sx and no speech or visual sx - no other acute c/o Onset (ago): hour(s) Timing confirmed by: spouse History of same: No Severity: moderate Context: sudden onset On Anticoagulants: No Treatments Prior to Arrival: none Related Data Home Medications Medication Instructions Recorded Confirmed cholecalciferol (vitamin D3) 125 5,000 iunits PO DAILY Osteoporosis 10/05/21 08/07/22 mcg (5,000 unit) capsule omega 9-dep-ipw-fish oil 100 1 cap PO DAILY SUPPLIMENT 10/19/21 08/07/22 mg-160 mg-1,000 mg capsule (Fish Oil) triamterene 37.5 1 tab PO DAILY BLOOD PRESSURE 10/19/21 08/07/22 mg-hydrochlorothiazide 25 mg tablet mirabegron 25 mg tablet,extended 25 mg PO DAILY BLADDER 06/03/22 08/07/22 release 24 hr (Myrbetriq) potassium chloride 10 mEq 10 meq PO DAILY Supplement 06/03/22 08/07/22 tablet,extended release donepezil 5 mg tablet 5 mg PO HS alzheimers 06/27/22 08/07/22 esomeprazole magnesium 20 mg 20 mg PO DAILY SUPPLIMENT 06/27/22 08/07/22 capsule,delayed release biotin 10,000 mcg capsule 10,000 mcg PO DAILY Supplement 08/03/22 08/07/22 baclofen 10 mg tablet 10 mg PO HS muscle relaxers 08/07/22 08/07/22 cefdinir 300 mg capsule 300 mg PO BID bronchitis 08/07/22 08/07/22 gabapentin 600 mg tablet 600 mg PO QID nerve pain 08/07/22 08/07/22 methylprednisolone 24 mg tablet 24 mg PO BID bronchitis 08/07/22 08/07/22 Previous Rx's Medication Instructions Recorded
[2022-08-07 06:53] LABS: Influenza A, PCR Detected (NotDetected)
== END 2022-08-07 08:00 | disposition home or self-care (01) ==
PROVIDERS: Emergency Provider Emergency Medicine; PCP Family Medicine
DX: J10.1 Influenza due to other identified influenza virus with other respiratory manifestations (principal); R42 Dizziness and giddiness; Z79.899 Other long term (current) drug therapy; F41.9 Anxiety disorder, unspecified; F32.A Depression, unspecified; K21.9 Gastro-esophageal reflux disease without esophagitis; I10 Essential (primary) hypertension; E78.5 Hyperlipidemia, unspecified; E03.9 Hypothyroidism, unspecified
CPT/HCPCS: 70450; 71046; 80053; 81001; 83735; 84436; 84443; 84484; 85025; 87086; 93005; 96365; 99284; C9803; U0003; U0005

== ENCOUNTER → 2022-08-18 14:26 | Outpatient (POV) | payer MEDICARE, OTHER, SELFPAY ==
[2022-08-18 14:53] VITALS: BP 120/74; PULSE 62; RESP 18; O2SAT 97; BMI 30.7
--- NOTE | 2022-08-18 15:00 | EXP.PAIN.SOA ---
[facility] Pain Management SOAP Note Subjective:: Patient is a pleasant 67-year-old female who presents today for follow-up of trigger point injections of bilateral cervical paraspinous and bilateral trapezius muscles on 08/02/2022. We are currently treating the patient for degenerative disc disease of cervical spine with cervical radiculopathy symptoms, cervical spondylosis, cervical spinal stenosis, neck pain, myofascial pain of bilateral cervical paraspinous and bilateral trapezius. Patient states she has had at least 60% improvement following these injections and that they lasted almost 2 weeks. Today she rates her pain a 7 out of 10 and states her pain is back at baseline roughly. Patient denies any new trauma or injury. Patient denies any change in location or type of pain she experiences. Patient is prescribed a compounding cream that provides significant improvement of her symptoms as well as gabapentin 600 mg 4 times a day from an outside provider's office. Patient denies any side effects from this medication. She states this medication does manage her symptoms well. Patient has also been prescribed baclofen 10 mg at night however she states that she has not needed this between the cream and her gabapentin and the injections. Patient is scheduled to see Dr. Jasso in September for possible surgical recommendations. Her Julian is [id number]. It is been reviewed and appropriate. Review of Systems: General: No recent weight changes, no fever, no sleep disturbances Respiratory: No cough, no shortness of air, no recurring pulmonary infections Cardiovascular/peripheral vascular: No chest pain, no palpitations, no edema, no shortness of breath Gastrointestinal: No new onset incontinence, normal bowel movements reported Genitourinary: No new onset incontinence Musculoskeletal: Neck pain, shoulder pain Psychiatric: [Normal mood/affect] Neurological: [Denies weakness in extremities], [denies balance issues] Objective:: Physical Exam: General: Alert and oriented x3, no acute distress, pleasant and cooperative Lungs: Respirations even and unlabored, symmetrical chest expansion Eyes: PERRL Musculoskeletal: Flexion and extension of cervical [spine] somewhat guarded secondary to pain, [antalgic gait noted] point tenderness along bilateral cervical paraspinous and bilateral trapezius muscles Neurological: Speech clear, no gross sensory deficit Assessment:: degenerative disc disease of cervical spine with cervical radiculopathy symptoms, cervical spondylosis, cervical spinal stenosis, neck pain, myofascial pain of bilateral cervical paraspinous and bilateral trapezius Plan:: Patient is experiencing significant pain in her neck that radiates into her bilateral shoulders. Patient has limited range of motion of her cervical spine and point tenderness along her bilateral cervical paraspinous and bilateral trapezius muscles. I have discussed with the patient that she may benefit from repeat trigger point injections at these locations. Risk and benefits were discussed with the patient. She would like to proceed forward with this plan of care. We will schedule the patient for TPI of bilateral cervical paraspinous and bilateral trapezius muscles. Patient has been instructed to contact the clinic with any concerns before the next appointment. Dr. Meza has reviewed this note and agrees with this plan of care. This note was dictated using voice recognition software and make contain errors or omissions. [facility] Disclaimer: The information contained in this section may have been updated after the patient was seen, as this information can be updated by other users. Medical History (Updated 08/07/22 @ 07:50 by Wilfredo Yañez MD) Anxiety Bronchitis Depression History of gastroesophageal reflux (GERD) Hyperlipidemia Hypertension Hyperthyroidism Hyperthyroidism determined by thyroid function test Hyponatremia Surgical History (Reviewed 08/05/22 @ 15:21 by Yolis Robins
== END ==
PROVIDERS: PCP Psychiatry & Neurology Sleep Medicine; Visit Provider Nurse Practitioner Family
DX: M50.10 Cervical disc disorder with radiculopathy, unspecified cervical region (principal); M47.12 Other spondylosis with myelopathy, cervical region; M79.18 Myalgia, other site
CPT/HCPCS: 99212; G0463

== ENCOUNTER → 2022-08-23 10:16 | Day surgery (SDC) | payer MEDICARE, OTHER, SELFPAY ==
[2022-08-23 10:29] VITALS: BP 165/90; PULSE 60; RESP 18; TEMP 36.4; O2SAT 97; BMI 30.7
[2022-08-23 10:41] VITALS: BP 163/91; PULSE 56; RESP 18; O2SAT 96
[2022-08-23 10:50] VITALS: BP 148/80; PULSE 57; RESP 18; O2SAT 97
--- NOTE | 2022-08-23 10:51 | P.PCN_ITS ---
Procedure Date: 08/23/22 Time: 10:40 Anesthesiologist:: Luis Gray CRNA Complications:: None Pre-procedure Diagnosis:: Myofascial pain bilateral trapezius. Bilateral posterior cervical paraspinous muscles. Post-procedure Diagnosis:: Same. Indications for Procedure:: Patient is a pleasant 67-year-old female that comes our clinic today for bilateral posterior cervical paraspinous muscle and bilateral trapezius muscle trigger point injections. She has extreme point tenderness over these areas. She rates her pain 7/10. Patient has had these injections in the past with significant improvement. Procedure Details:: Details of the procedure explained the patient. The patient taken the procedure room placed in sitting position. The area over the posterior cervical area as well as bilateral trapezius muscle was cleaned using chlorhexidine cleansing solution. 2 markers were placed over the bilateral trapezius muscles as well as a marker over the distal posterior cervical paraspinous muscles. Each marker was injected with a 25-gauge needle after negative aspiration with 3 cc of a mixture containing 0.25% Marcaine as well as 1% lidocaine and 40 mg of Depo- Medrol. Patient tolerated procedure without difficulty. There are no complications. Plan and Disposition:: Patient was discharged without incident.
== END | disposition home or self-care (01) ==
PROVIDERS: PCP Psychiatry & Neurology Sleep Medicine; Visit Provider Nurse Anesthetist, Certified Registered
DX: M79.18 Myalgia, other site (principal)
CPT/HCPCS: 20552; J1040

== ENCOUNTER → 2022-09-07 10:54 | Outpatient (POV) | payer MEDICARE, OTHER, SELFPAY ==
[2022-09-07 11:40] VITALS: BP 150/87; PULSE 56; RESP 18; O2SAT 97; BMI 29.8
--- NOTE | 2022-09-07 12:33 | EXP.PAIN.SOA ---
[facility] Pain Management SOAP Note Subjective:: Patient is a pleasant 67-year-old female who presents today for follow-up of trigger point injections of bilateral posterior cervical paraspinous and bilateral trapezius muscles on 08/23/2022. We are currently treating the patient for degenerative disc disease of cervical spine with cervical radiculopathy symptoms, cervical spondylosis, cervical spinal stenosis, neck pain, myofascial pain of bilateral cervical paraspinous and bilateral trapezius muscles. Today the patient states that she has had approximately 99% relief following this injection however it only lasted approximately 2 weeks. Patient states she is starting to experience more pain and rates it at 6 out of 10. Patient denies any new trauma or injury. Patient denies any change location or type of pain she experiences. Patient has had multiple injections in the past however she states the trigger point injections have provided the most relief as of today. Patient is scheduled to see Dr. Hidalgo tomorrow for possible surgical recommendations. Patient does have a history of 2 prior back surgeries with one being [facility] that did provide significant improvement in her last when she did not notice significant relief. Patient states she does occasionally have episodes of lightheadedness starting this past weekend and is unsure if it is related to the injections. Patient does states that these are just random times and do not seem to correlate with any specific actions. Patient is currently prescribed gabapentin 600 mg 4 times a day from an outside provider. Patient denies any side effects from this medication. She states this medication does help. She is also prescribed compounding cream that she states does give significant improvement. Patient was previously prescribed baclofen 10 mg at night however she stated with the cream and the gabapentin and injections she did not need this medication. Patient states she did also look into a possible scrambler therapy and was interested if we had any knowledge on this. Patient does state that it does appear to be similar to a TENS unit device. Her Julian is [id number]. Its been reviewed and appropriate. Review of Systems: General: No recent weight changes, no fever, no sleep disturbances Respiratory: No cough, no shortness of air, no recurring pulmonary infections Cardiovascular/peripheral vascular: No chest pain, no palpitations, no edema, no shortness of breath Gastrointestinal: No new onset incontinence, normal bowel movements reported Genitourinary: No new onset incontinence Musculoskeletal: Neck pain/upper back pain Psychiatric: [Normal mood/affect] Neurological: [Denies weakness in extremities], [denies balance issues] Objective:: Physical Exam: General: Alert and oriented x3, no acute distress, pleasant and cooperative Lungs: Respirations even and unlabored, symmetrical chest expansion Eyes: PERRL Musculoskeletal: Flexion and extension of cervical [spine] somewhat guarded secondary to pain, [antalgic gait noted] Neurological: Speech clear, no gross sensory deficit Assessment:: Degenerative disc disease of cervical spine with cervical radiculopathy symptoms, cervical spondylosis, cervical spinal stenosis, neck pain, myofascial pain of bilateral cervical paraspinous and bilateral trapezius muscles Plan:: Patient is experiencing significant pain in her neck and upper back during today's visit. Patient did have limited range of motion of her cervical spine. Patient is scheduled to see Dr. Jasso tomorrow for possible surgical intervention. Patient will return to clinic in 1 month for reevaluation of symptoms and follow-up. Patient may be a beneficial candidate for a spinal cord stimulator due to her chronic pain symptoms. We will plan on discussing this at her upcoming visit. Patient has been instructed to contact the clinic with any concerns before the next appointment. Dr. Meza has reviewed this note and a
== END ==
PROVIDERS: PCP Family Medicine; Visit Provider Nurse Practitioner Family
DX: M50.10 Cervical disc disorder with radiculopathy, unspecified cervical region (principal); M47.22 Other spondylosis with radiculopathy, cervical region; M79.18 Myalgia, other site
CPT/HCPCS: 99212; G0463

== ENCOUNTER 2022-09-27 13:24 | Day surgery (SDC) | payer MEDICARE, OTHER, SELFPAY ==
[2022-09-27 13:35] VITALS: BP 160/81; PULSE 58; RESP 18; TEMP 36.5; O2SAT 97; BMI 30.7
[2022-09-27 13:48] VITALS: BP 147/68; PULSE 62; RESP 18; O2SAT 98
[2022-09-27 13:50] VITALS: BP 147/68; PULSE 62; RESP 18; O2SAT 98
--- NOTE | 2022-09-27 13:56 | EXP.PAIN.PRO ---
Procedure Date: 09/27/22 Time: 13:50 Anesthesiologist:: Luis Gray CRNA Complications:: None Pre-procedure Diagnosis:: Degenerative disc disease cervical spine multilevels. Cervical radiculopathy. Cervical postlaminectomy syndrome. Post-procedure Diagnosis:: Same. Indications for Procedure:: Patient is a very pleasant 67-year-old female that comes our clinic today for bilateral C3-4, C4-5 facet block/medial branch block. Patient has status post anterior cervical discectomy and fusion. Also, posterior cervical facet fusion C5-6, C6-7 bilaterally. Patient complains of cervical neck pain she describes as constant, dull, aching. She has difficulty with flexion, extension, left and right rotation. She rates her pain 7/10. Procedure Details:: Details of the procedure explained the patient. The patient taken to procedure room placed in the prone position. The area over the posterior cervical spine was cleaned using chlorhexidine as a cleansing solution. Using fluoroscopy guidance markers were placed over the C3-4 and C4-5 facet joints bilaterally. Using a 25-gauge needle the skin and subcutaneous tissue was anesthetized at each site. Using fluoroscopy guidance and a 25-gauge 3-1/2 inch spinal needle the facet joints at C3-4 and C4-5 on the right were accessed. Needle position was confirmed using contrast dye. At each level 0.5 cc of 1% lidocaine and 10 mg of Depo-Medrol was injected. The same procedure was carried out on the left at C3-4, C4-5. Patient tolerated procedure without difficulty. There are no complications. Plan and Disposition:: Patient was discharged without incident.
[2022-09-27 14:03] VITALS: BP 151/77; PULSE 54; RESP 18; O2SAT 97
== END 2022-09-27 14:03 | disposition home or self-care (01) ==
PROVIDERS: PCP Family Medicine; Visit Provider Nurse Anesthetist, Certified Registered
DX: M50.123 Cervical disc disorder at C6-C7 level with radiculopathy (principal); M96.1 Postlaminectomy syndrome, not elsewhere classified; M47.892 Other spondylosis, cervical region
CPT/HCPCS: 64490; 64491; J1040; Q9966

== ENCOUNTER → 2022-10-19 11:04 | Outpatient (POV) | payer MEDICARE, OTHER, SELFPAY ==
[2022-10-19 11:45] VITALS: BP 153/92; PULSE 61; RESP 18; O2SAT 97; BMI 30.7
--- NOTE | 2022-10-19 12:29 | EXP.PAIN.SOA ---
[facility] Pain Management SOAP Note Subjective:: Patient is a pleasant 67-year-old female who presents today for follow-up of cervical medial branch block C3-4 and C4-5 on 09/27/2022. We are currently treating the patient for degenerative disc disease of cervical spine with cervical radiculopathy symptoms, cervical spondylosis, cervical spinal stenosis, neck pain, myofascial pain of bilateral cervical paraspinous and bilateral trapezius muscles. Today she states that she had at least 50% improvement from these injections and still feels like they are continuing to provide some additional relief. She rates her pain a 5 out of 10. Patient denies any new trauma or injury. Patient denies any change location or type of pain that she experiences. Patient was recently prescribed baclofen 10 mg at night and she states this did provide significant relief and is requesting a refill at today's visit. Patient has also been prescribed compounding cream and gabapentin 600 mg 4 times a day by her primary care doctor. Patient states she does have significant concerns regarding continuing her gabapentin due to increased brain fog. Patient states that her daughter recently sent her a video over the risk of being on this medication long-term. Patient states she does have questions regarding her gabapentin use. Patient's Julian is [id number]. Its been reviewed and appropriate. Review of Systems: General: No recent weight changes, no fever, no sleep disturbances Respiratory: No cough, no shortness of air, no recurring pulmonary infections Cardiovascular/peripheral vascular: No chest pain, no palpitations, no edema, no shortness of breath Gastrointestinal: No new onset incontinence, normal bowel movements reported Genitourinary: No new onset incontinence Musculoskeletal: Neck pain Psychiatric: [Normal mood/affect] Neurological: [Denies weakness in extremities], [denies balance issues] Objective:: Physical Exam: General: Alert and oriented x3, no acute distress, pleasant and cooperative Lungs: Respirations even and unlabored, symmetrical chest expansion Eyes: PERRL Musculoskeletal: Flexion and extension of cervical [spine] somewhat guarded secondary to pain, [antalgic gait noted] Neurological: Speech clear, no gross sensory deficit Assessment:: Degenerative disc disease of cervical spine with cervical radiculopathy symptoms, cervical spondylosis, cervical spinal stenosis, neck pain, myofascial pain of bilateral cervical paraspinous and bilateral trapezius muscles Plan:: Patient has had significant improvement of her pain symptoms following her cervical medial branch block and does not require any additional injective therapy at this time. I will send in a refill of her baclofen 10 mg at bedtime and provide a 1 month supply of this medication. I have counseled the patient that she can talk to Dr. Sims about titrating her gabapentin use. Patient will return to clinic in 1 month for reevaluation of symptoms and plan of care. Patient has been instructed to contact the clinic with any concerns before the next appointment. Dr. Meza has reviewed this note and agrees with this plan of care. This note was dictated using voice recognition software and make contain errors or omissions. [facility] Disclaimer: The information contained in this section may have been updated after the patient was seen, as this information can be updated by other users. Medical History Anxiety Bronchitis Depression History of gastroesophageal reflux (GERD) Hyperlipidemia Hypertension Hyperthyroidism Hyperthyroidism determined by thyroid function test Will need lab work at next visit Hyponatremia Resume 10meg KCL daily Surgical History History of spinal surgery Family History Other Cancer Coronary artery disease Diabetes
== END | disposition home or self-care (01) ==
PROVIDERS: PCP Family Medicine; Visit Provider Nurse Practitioner Family
DX: M50.121 Cervical disc disorder at C4-C5 level with radiculopathy (principal); M47.22 Other spondylosis with radiculopathy, cervical region; M79.18 Myalgia, other site
CPT/HCPCS: 99212; G0463

== ENCOUNTER → 2022-11-18 08:18 | Outpatient (POV) | payer MEDICARE, OTHER, SELFPAY ==
[2022-11-18 08:34] VITALS: BP 129/82; PULSE 64; RESP 18; O2SAT 98; BMI 30.7
--- NOTE | 2022-11-18 08:56 | EXP.PAIN.SOA ---
[facility] Pain Management SOAP Note Subjective:: Patient is a pleasant 67-year-old female who presents today for medication refill and follow-up. We are currently treating the patient for degenerative disc disease of cervical spine with cervical radiculopathy symptoms, cervical spondylosis, cervical spinal stenosis, neck pain, myofascial pain of bilateral cervical paraspinous and bilateral trapezius muscles, low back pain. Today she rates her pain a 9 out of 10. Patient denies any new trauma or injury. Patient denies any change location or type of pain she experiences. She does state her pain continues to be primarily around her neck with pain into the back of her head and some low back pain. Patient does state that this is a constant sensation in her upper back and that is made worse with certain movements such as turning her head from side to side which causes sharp shooting pains. She does state this interferes with her ability to perform activities of daily living such as cooking or cleaning or even getting ready in the morning. Patient is prescribed gabapentin 600 mg 4 times a day from her primary care doctor. At our last visit she did have concerns with being on such a high dosage and she states today that she did go down to 3 times a day. Patient denies any other side effects from this medication. She is also prescribed baclofen 10 mg at night along with compounding cream. She states both of these do provide additional improvement. She has had multiple injections in the past with her last one being a cervical medial branch block bilaterally of C3-4 and C4-5 on 09/27/2022. Patient does state that she had at least 50 to 60% improvement following this injection and it did last almost a month and a half. Patient states she also has had previous injections from another pain clinic in which they did do a ablation and she had significant relief with this. Her Julian is [id number]. Its been reviewed and appropriate. Review of Systems: General: No recent weight changes, no fever, no sleep disturbances Respiratory: No cough, no shortness of air, no recurring pulmonary infections Cardiovascular/peripheral vascular: No chest pain, no palpitations, no edema, no shortness of breath Gastrointestinal: No new onset incontinence, normal bowel movements reported Genitourinary: No new onset incontinence Musculoskeletal: Neck pain Psychiatric: [Normal mood/affect] Neurological: [Denies weakness in extremities], [denies balance issues] Objective:: Physical Exam: General: Alert and oriented x3, no acute distress, pleasant and cooperative Lungs: Respirations even and unlabored, symmetrical chest expansion Eyes: PERRL Musculoskeletal: Flexion and extension of cervical [spine] somewhat guarded secondary to pain, [antalgic gait noted] Neurological: Speech clear, no gross sensory deficit Assessment:: Degenerative disc disease of cervical spine with cervical radiculopathy symptoms, cervical spondylosis, cervical spinal stenosis, neck pain, myofascial pain of bilateral cervical paraspinous and bilateral trapezius muscles, low back pain Plan:: Patient is experiencing significant pain in her upper back/neck with limited range of motion. She did have limited range of motion of her cervical spine during today's visit. I have discussed with the patient that she may benefit from repeat cervical medial branch block bilaterally. Risk and benefits were discussed with the patient and she would like to proceed forward with this plan of care. Patient has already had 1 cervical MBB that did provide upwards of 60% improvement lasting 1.5 months. Patient is not on any blood thinners. I will refill the patient's baclofen 10 mg at bedtime and provide a 3-month supply of this medication. I will schedule the patient for a cervical medial branch block bilaterally of L3-4 and L4-5 with the plan to do the cervical RFA in the future. Patient has been instructed to contact the clinic with any concerns be
== END | disposition home or self-care (01) ==
PROVIDERS: PCP Family Medicine; Visit Provider Nurse Practitioner Family
DX: M50.10 Cervical disc disorder with radiculopathy, unspecified cervical region (principal); M47.22 Other spondylosis with radiculopathy, cervical region; M79.18 Myalgia, other site
CPT/HCPCS: 99212; G0463

== ENCOUNTER 2022-11-29 09:22 | Day surgery (SDC) | payer MEDICARE, OTHER, SELFPAY ==
[2022-11-29 09:30] VITALS: BP 192/75; PULSE 66; RESP 18; TEMP 36.6; O2SAT 98; BMI 30.7
[2022-11-29 09:31] VITALS: BP 163/57; PULSE 67; RESP 18; O2SAT 97
[2022-11-29 10:00] VITALS: BP 185/92; PULSE 59; RESP 18; O2SAT 98
--- NOTE | 2022-11-29 10:02 | P.PCN_ITS ---
Procedure Date: 11/29/22 Time: 09:50 Anesthesiologist:: Luis Gray CRNA Complications:: None Pre-procedure Diagnosis:: Degenerative disc disease cervical spine multilevels. Cervical radiculopathy. Cervical spondylosis. Multilevel cervical facet arthropathy. Cervical postlaminectomy syndrome. Chronic migraines. Post-procedure Diagnosis:: Same. Indications for Procedure:: Patient is a very pleasant 67-year-old female that comes our clinic today for a repeat cervical C3-4, C4-5 bilateral facet blocks/medial branch block. Patient had significant improvement in terms of her cervical neck pain with flexion, extension, left and right rotation following her first round of cervical medial branch block at the same level. Procedure Details:: Informed consent was obtained and the risk and benefits of the procedure was explained to the patient. Patient was taken to the procedure room where noninvasive monitors were placed, including noninvasive blood pressure cuff as well as pulse oximeter. The area over the posterior cervical spine was cleansed using chlorhexidine as a cleansing solution. I anesthetized the skin and subcutaneous tissues with 1% Lidocaine. I placed 25 -gauge spinal needles into the facet joint/ medial branches of C3-4, C4-5 bilaterally. Needle placement was confirmed with fluoroscopy. After confirmation of needle placement, each site was injected with 1 mL of 1% lidocaine and 0.25 % Marcaine and 10 mg of Depo- Medrol. A total of 20 mg of depo medrol was used for bilateral medial branch blocks of C3-4, C4-5 bilaterally. Patient tolerated the procedure without difficulty. There were no complications. Plan and Disposition:: Patient was discharged without incident
== END 2022-11-29 10:00 | disposition home or self-care (01) ==
PROVIDERS: PCP Family Medicine; Visit Provider Nurse Anesthetist, Certified Registered
DX: M50.121 Cervical disc disorder at C4-C5 level with radiculopathy (principal); M47.892 Other spondylosis, cervical region; M96.1 Postlaminectomy syndrome, not elsewhere classified; G43.909 Migraine, unspecified, not intractable, without status migrainosus
CPT/HCPCS: 64490; 64491; J1040; Q9966

== ENCOUNTER → 2022-12-15 15:00 | Outpatient (POV) | payer MEDICARE, OTHER, SELFPAY ==
--- NOTE | 2022-12-15 15:17 | EXP.PAIN.SOA ---
[facility] Pain Management SOAP Note Subjective:: Patient is a pleasant 67-year-old female who presents today for follow-up of medial branch block of her cervical spine bilaterally at C3-C4 and C4-C5 11/29/2022. We are currently treating the patient for degenerative disc disease of cervical spine with cervical radiculopathy symptoms, cervical spondylosis, cervical spinal stenosis, neck pain, myofascial pain of bilateral cervical paraspinous and bilateral trapezius muscles, low back pain. Today she states that she only had approximately 1 day of significant relief where she felt better following this injection. She does state that she is back to her baseline and rates her pain a 7 out of 10. Patient denies any new trauma or injury. Patient denies any change location or type of pain she experiences. She does state her pain is all primarily in her neck and the back of her head that is a constant sensation that is worse with increased activity or certain movements. She does describe this as a aching, throbbing sensation with occasional sharp shooting pains. She does notice her pain more prominent with certain movements such as bending, lifting or twisting. It does interfere with her ability to perform activities of daily living such as cooking and cleaning. She has had previous cervical RFA's in the past that did provide significant relief and longer lasting results. She is currently prescribed gabapentin 600 mg 4 times a day from her primary care doctor. She does state that she is going to be seeing her primary care doctor coming up and that she is wanting to completely come off the gabapentin. She states that she feels like she has more memory issues and is unsure if it is related to this medication or her previous COVID illness last year. We do prescribe her baclofen 10 mg at bedtime and at our last visit did provide a 3-month supply of this medication. Her Julian is [id number]. Its been reviewed and appropriate. Review of Systems: General: No recent weight changes, no fever, no sleep disturbances Respiratory: No cough, no shortness of air, no recurring pulmonary infections Cardiovascular/peripheral vascular: No chest pain, no palpitations, no edema, no shortness of breath Gastrointestinal: No new onset incontinence, normal bowel movements reported Genitourinary: No new onset incontinence Musculoskeletal: Neck pain Psychiatric: [Normal mood/affect] Neurological: [Denies weakness in extremities], [denies balance issues] Objective:: Physical Exam: General: Alert and oriented x3, no acute distress, pleasant and cooperative Lungs: Respirations even and unlabored, symmetrical chest expansion Eyes: PERRL Musculoskeletal: Flexion and extension of cervical [spine] somewhat guarded secondary to pain, [antalgic gait noted] positive Kemps test Neurological: Speech clear, no gross sensory deficit Assessment:: degenerative disc disease of cervical spine with cervical radiculopathy symptoms, cervical spondylosis, cervical spinal stenosis, neck pain, myofascial pain of bilateral cervical paraspinous and bilateral trapezius muscles, low back pain Plan:: Patient is experiencing significant pain in her neck with limited range of motion. Patient did have a positive Kemps test. She has had 2 beneficial medial branch blocks of her cervical spine with significant improvement at 50 to 60% relief however only lasting short-term. I have discussed with the patient that she may benefit from the cervical RFA. Risk and benefits were discussed with the patient and she would like to proceed forward with this plan of care. Patient is not on any blood thinners. Patient has previously had a cervical RFA in the past that did provide significant relief for long-term lasting several months. Patient did have this procedure at a different pain clinic and states that it did provide significant improvement of her pain symptoms and better improved functionality overall. We will schedule her for a cervica
[2022-12-15 15:23] VITALS: BP 128/71; PULSE 62; RESP 18; O2SAT 97; BMI 30.7
== END ==
PROVIDERS: PCP Family Medicine; Visit Provider Nurse Practitioner Family
DX: M50.121 Cervical disc disorder at C4-C5 level with radiculopathy (principal); M48.02 Spinal stenosis, cervical region; M47.22 Other spondylosis with radiculopathy, cervical region; M79.18 Myalgia, other site
CPT/HCPCS: 99212; G0463

== ENCOUNTER 2022-12-27 09:24 | Day surgery (SDC) | payer MEDICARE, OTHER, SELFPAY ==
[2022-12-27 09:38] VITALS: BP 141/79; PULSE 56; RESP 18; TEMP 36.7; O2SAT 95; BMI 30.7
[2022-12-27 09:44] VITALS: BP 138/68; PULSE 59; RESP 18; O2SAT 98
[2022-12-27 09:47] VITALS: BP 138/68; PULSE 59; RESP 18; O2SAT 98
[2022-12-27 09:54] VITALS: BP 118/76; PULSE 53; RESP 18; O2SAT 95
--- NOTE | 2022-12-27 09:54 | P.PCN_ITS ---
Procedure Date: 12/27/22 Time: 09:45 Anesthesiologist:: Luis Gray CRNA Complications:: None Pre-procedure Diagnosis:: Degenerative disc disease cervical spine multilevels. Cervical radiculopathy. Cervical spondylosis. Multilevel cervical facet arthropathy. Cervical postlaminectomy syndrome Post-procedure Diagnosis:: Same. Indications for Procedure:: Patient is a very pleasant 67-year-old female that comes today for left L4, 5, 6 cervical radiofrequency ablation. Patient had successful medial branch block at the same levels x2. She complains of cervical pain with flexion, extension, left and right rotation. Procedure Details:: Procedure Details: Cervical RFA Informed consent was obtained and the risk and benefits of the procedure was explained to the patient. Patient was placed prone on the procedure table. The patient was prepped and draped in sterile fashion. C-arm fluoroscopy was used to view the lumbar spine. The skin and subcutaneous tissues were anesthetized using lidocaine. I placed 20-gauge RF needles into the facet joints of C4-5 C5-6 levels on the left side. We underwent sensory stimulation. There is good sensory stimulation at 0.8 V. We underwent motor stimulation. There is no motor stimulation at 2.5 V. We then anesthetized these levels with lidocaine and Depo- Medrol. I used a total of 40 mg Depo-Medrol for both levels. I then burned both levels of C4-5, C5 facet joint/medial branches on the left side for 4 minutes at 80 ?C. Patient tolerated the procedure well with no complication. Plan and Disposition:: Patient will return in 2 weeks for right side radiofrequency ablation. She was discharged without incident.
== END 2022-12-27 09:54 | disposition home or self-care (01) ==
PROVIDERS: PCP Family Medicine; Visit Provider Nurse Anesthetist, Certified Registered
DX: M50.122 Cervical disc disorder at C5-C6 level with radiculopathy (principal); M47.892 Other spondylosis, cervical region; M96.1 Postlaminectomy syndrome, not elsewhere classified
CPT/HCPCS: 64633; 64634; J1040; Q9966

== ENCOUNTER → 2023-01-02 23:19 | Outpatient (CLI) | payer MEDICARE, OTHER, SELFPAY ==
[2023-01-02 19:22] LABS: Basophils # 0.1 K/mm3 (0-0.2); Basophils % 0.6 % (0.1-2.0); Eosinophils # 0.4 K/mm3 (0.0-0.4); Eosinophils % 4.4 % (0.1-12.0); Hemoglobin 13.4 g/dL (12.2-16.2); Lymphocytes # 1.4 K/mm3 (0.7-4.5); Lymphocytes % 18.2 % (10-50); Mean Corpuscular HGB Conc 32.5 g/dL (31.8-35.4); Mean Corpuscular Hemoglobin 29.6 pg (27.0-31.2); Mean Corpuscular Volume 90.8 fl (81-99); Mean Platelet Volume 9.1 fl (7.4-10.4); Monocytes # 0.6 K/mm3 (0.1-1.0); Monocytes % 7.9 % (1.7-9.3); Neutrophils # 5.4 K/mm3 (1.8-7.8); Neutrophils % 68.8 % (37.0-80.0); Platelet Count 253 K/mm3 (142-424); Red Blood Count 4.52 M/mm3 (4.20-5.40); White Blood Count 7.8 K/mm3 (4.8-10.8)
== END ==
PROVIDERS: PCP Nurse Practitioner; Visit Provider Nurse Practitioner
DX: R05.9 Cough, unspecified (principal)
CPT/HCPCS: 85025

== ENCOUNTER 2023-01-10 09:24 | Day surgery (SDC) | payer MEDICARE, OTHER, SELFPAY ==
[2023-01-10 09:46] VITALS: BP 109/74; PULSE 62; RESP 18; TEMP 36.3; O2SAT 96; BMI 29.9
[2023-01-10 10:04] VITALS: BP 126/75; PULSE 61; RESP 18; O2SAT 98
[2023-01-10 10:08] VITALS: BP 126/75; BP 151/74; PULSE 59; PULSE 61; RESP 18; O2SAT 96; O2SAT 98
--- NOTE | 2023-01-10 10:09 | P.PCN_ITS ---
Procedure Date: 01/10/23 Time: 10:00 Anesthesiologist:: Luis Gray CRNA Complications:: None Pre-procedure Diagnosis:: Degenerative disc disease cervical spine multilevels. Cervical radiculopathy. Cervical spondylosis. Multilevel cervical facet arthropathy. Cervical postlaminectomy syndrome Post-procedure Diagnosis:: Same Indications for Procedure:: Patient is a very pleasant 67-year-old female that comes our clinic today for a right C3-4, C4-5 cervical facet radiofrequency ablation. Patient is status post the left side. She is doing moderately better on the left side in terms of cervical neck pain. Procedure Details:: Procedure Details: Cervical RFA Informed consent was obtained and the risk and benefits of the procedure was explained to the patient. Patient was placed prone on the procedure table. The patient was prepped and draped in sterile fashion. C-arm fluoroscopy was used to view the lumbar spine. The skin and subcutaneous tissues were anesthetized using lidocaine. I placed 20-gauge RF needles into the right facet joints of C3-4, C4- 5 levels on the right side. We underwent sensory stimulation. There is good sensory stimulation at 0.8 V. We underwent motor stimulation. There is no motor stimulation at 2.5 V. We then anesthetized these levels with lidocaine and Depo- Medrol. I used a total of 40 mg Depo-Medrol for both levels. I then burned both levels of C3-4, C4-5 facet joint/medial branches on the right side for 2 minutes at 80 ?C. Patient tolerated the procedure well with no complication. Plan and Disposition:: Patient was discharged without incident.
== END 2023-01-10 10:08 | disposition home or self-care (01) ==
PROVIDERS: PCP Nurse Practitioner; Visit Provider Nurse Anesthetist, Certified Registered
DX: M50.121 Cervical disc disorder at C4-C5 level with radiculopathy (principal); M47.892 Other spondylosis, cervical region; M96.1 Postlaminectomy syndrome, not elsewhere classified
CPT/HCPCS: 64490; 64491; J1040; Q9966

== ENCOUNTER → 2023-01-25 09:16 | Outpatient (POV) | payer MEDICARE, OTHER, SELFPAY ==
--- NOTE | 2023-01-25 10:16 | EXP.PAIN.SOA ---
[facility] Pain Management SOAP Note Subjective:: Patient is a pleasant 68-year-old female who presents today for follow-up of medial branch block of her cervical spine right-sided C3-4 and C4-5 on 01/10/2023. We are currently treating the patient for degenerative disc disease of cervical spine with cervical radiculopathy symptoms, cervical spondylosis, cervical spinal stenosis, neck pain, myofascial pain, low back pain. Today she states she has had at least 70% improvement from this injection and feels like it is still continuing to provide additional relief. She does rate her pain today a 3 out of 10. She states her pain is around her neck going into her shoulders. Patient does describe this as a stiffness with tenderness to palpate. Patient denies any new trauma or injury. Patient denies any change location or type of pain she experiences. Patient is currently managed with gabapentin 600 mg and is down to twice a day with this medication. Our office has prescribed baclofen 10 mg at bedtime and she states this does provide significant relief. She is requesting a refill at today's visit. Her Julian is [id number]. Its been reviewed and appropriate. Review of Systems: General: No recent weight changes, no fever, no sleep disturbances Respiratory: No cough, no shortness of air, no recurring pulmonary infections Cardiovascular/peripheral vascular: No chest pain, no palpitations, no edema, no shortness of breath Gastrointestinal: No new onset incontinence, normal bowel movements reported Genitourinary: No new onset incontinence Musculoskeletal: Neck, bilateral shoulder pain Psychiatric: [Normal mood/affect] Neurological: [Denies weakness in extremities], [denies balance issues] Objective:: Physical Exam: General: Alert and oriented x3, no acute distress, pleasant and cooperative Lungs: Respirations even and unlabored, symmetrical chest expansion Eyes: PERRL Musculoskeletal: Flexion and extension of cervical [spine] somewhat guarded secondary to pain, [antalgic gait noted] point tenderness noted at bilateral cervical paraspinous and bilateral trapezius muscles Neurological: Speech clear, no gross sensory deficit Assessment:: Degenerative disc disease of cervical spine with cervical radiculopathy symptoms, cervical spondylosis, cervical spinal stenosis, neck pain, myofascial pain, low back pain Plan:: Patient has had significant improvement following her cervical medial branch block however she is experiencing point tenderness at her bilateral cervical paraspinous and trapezius muscles. I have discussed with the patient that she may benefit from a trigger point injection at these locations. Risk and benefits were discussed with her and she would like to proceed forward with this plan of care. I will also refill her baclofen 10 mg at bedtime and provide a 3-month supply of this medication. Patient will be scheduled for trigger point injections of her bilateral cervical paraspinous and bilateral trapezius muscles. Patient has been instructed to contact the clinic with any concerns before the next appointment. Dr. Meza has reviewed this note and agrees with this plan of care. This note was dictated using voice recognition software and make contain errors or omissions. [facility] Disclaimer: The information contained in this section may have been updated after the patient was seen, as this information can be updated by other users. Medical History (Updated 01/20/23 @ 10:05 by Vanessa Coronado APRN) Anxiety Bronchitis Depression Essential hypertension History of gastroesophageal reflux (GERD) Hyperlipidemia Hyperlipidemia Hypertension Hyperthyroidism Hyperthyroidism determined by thyroid function test Hyponatremia Vitamin D deficiency Surgical History History of spinal surgery Family History Other Cancer Coronary artery disease Diabetes
[2023-01-25 10:23] VITALS: BP 137/83; PULSE 60; RESP 18; O2SAT 97; BMI 29.8
== END | disposition home or self-care (01) ==
PROVIDERS: PCP Family Medicine; Visit Provider Nurse Practitioner Family
DX: M50.122 Cervical disc disorder at C5-C6 level with radiculopathy (principal); M47.22 Other spondylosis with radiculopathy, cervical region; M79.10 Myalgia, unspecified site
CPT/HCPCS: 99212; G0463

== ENCOUNTER → 2023-02-08 19:46 | Outpatient (CLI) | payer MEDICARE, OTHER, SELFPAY ==
[2023-02-08 20:56] LABS: Alanine Aminotransferase 28 U/L (12-78); Albumin Level 4.5 g/dl (3.5-5.0); Albumin/Globulin Ratio 1.7 (1.1-1.8); Alkaline Phosphatase 74 U/L (38-126); Anion Gap 15.7 mEq/L (5-15); Aspartate Amino Transferase 34 U/L (14-36); Bilirubin,Total 0.4 mg/dl (0.2-1.3); Blood Urea Nitrogen 16 mg/dl (7-17); Calcium 9.5 mg/dl (8.4-10.2); Carbon Dioxide 32 mmol/L (22.0-30.0); Chloride 91 mmol/L (98-107); Cholesterol 210 mg/dl (140-200); Estimated Glomerular Filt Rate 62 ml/min (>60); GFR (African American) 75 ML/MIN (>60); Globulin 2.6 g/dL (1.3-3.2); Glucose 118 mg/dl (74-100); HDL Cholesterol 106 mg/dl (40-60); Potassium 4.7 mmoL/L (3.5-5.1); Sodium 134 mmol/L (136-145); Total Protein,Serum 7.1 g/dl (6.3-8.2); Triglycerides 141 mg/dl (30-150); VLDL Cholesterol 28 mg/dL (0-40)
[2023-02-08 21:07] LABS: Direct LDL Cholesterol 80.91 mg/dL (100-129)
[2023-02-08 21:12] LABS: Triiodothryronine (T3) Uptake 29 % (23.5-40.5)
[2023-02-08 21:27] LABS: Thyroid Stimulating Hormone < 0.02 uIU/mL (0.465-4.68)
[2023-02-08 21:53] LABS: 25-OH Vitamin D, Total 35.1 ng/mL (30-100)
[2023-02-10 12:24] LABS: Free Thyroxine Index 2.3 ug/dL (5.93-13.13); T4 (Thyroxine) 8.1 ug/dl (5.53-11.0)
== END ==
PROVIDERS: PCP Nurse Practitioner; Visit Provider Nurse Practitioner
DX: E05.90 Thyrotoxicosis, unspecified without thyrotoxic crisis or storm (principal); E55.9 Vitamin D deficiency, unspecified; E78.5 Hyperlipidemia, unspecified; F33.1 Major depressive disorder, recurrent, moderate; I10 Essential (primary) hypertension; Z68.31 Body mass index [BMI] 31.0-31.9, adult; E66.9 Obesity, unspecified
CPT/HCPCS: 80053; 80061; 82306; 84436; 84443; 84479

== ENCOUNTER 2023-02-14 09:06 | Day surgery (SDC) | payer MEDICARE, OTHER, SELFPAY ==
[2023-02-14 09:17] VITALS: BP 131/74; PULSE 68; RESP 18; TEMP 36.6; O2SAT 97; BMI 30.2
--- NOTE | 2023-02-14 09:40 | EXP.PAIN.PRO ---
Procedure Date: 02/14/23 Time: 09:30 Anesthesiologist:: Luis Gray CRNA Complications:: None Pre-procedure Diagnosis:: Myofascial pain left cervical paraspinous muscle. Left trapezius muscle. Post-procedure Diagnosis:: Same. Indications for Procedure:: Very pleasant 68-year-old female comes our clinic today for trigger point injections of the left cervical paraspinous muscle as well as left trapezius muscle. Patient has had this injection in the past with moderate relief. Patient complained of posterior cervical neck pain on the left as well as left trapezius pain. Procedure Details:: Details of the procedure explained to the patient. The patient taken the procedure room placed in the sitting position. The area over the posterior cervical spine as well as left trapezius muscle was cleaned using chlorhexidine as a cleansing solution. At the base of the posterior cervical spine on the left a 22-gauge inch and half needle was used to inject 3 cc of a solution containing 0.25% Marcaine +1% lidocaine and 20 mg of Depo-Medrol. The same procedure was carried out over the left trapezius muscle in 2 separate areas. 3 cc injection at each marker. Patient tolerated procedure without difficulty. No complications. Plan and Disposition:: Patient was discharged without incident.
[2023-02-14 09:50] VITALS: BP 114/67; PULSE 62; RESP 16; O2SAT 97
== END 2023-02-14 09:50 | disposition home or self-care (01) ==
PROVIDERS: PCP Nurse Practitioner; Visit Provider Nurse Anesthetist, Certified Registered
DX: M79.18 Myalgia, other site (principal); M54.2 Cervicalgia
CPT/HCPCS: 20552; J1040

== ENCOUNTER → 2023-03-08 09:20 | Outpatient (POV) | payer MEDICARE, OTHER, SELFPAY ==
--- NOTE | 2023-03-08 09:51 | EXP.PAIN.SOA ---
[facility] Pain Management SOAP Note Subjective:: Patient is a pleasant 68-year-old female who presents today for follow-up of trigger point injections of her left cervical paraspinous and left trapezius muscles on 02/14/2023. We are currently treating the patient for degenerative disc disease of cervical spine with cervical radiculopathy symptoms, cervical spondylosis, cervical spinal stenosis, neck pain, myofascial pain, low back pain. Today she states she has had at least 70% improvement following these injections and feels like they are still continuing to provide additional relief. She does rate her pain a 3 out of 10 and denies any new trauma or injury. Patient does state that she has noticed more popping sensations in her neck and states that it is only with certain movements and not constant. Patient does state that she also questions whether or not if it did been going on in the past but that she did not notice it due to the increased pain. Patient is currently managed with gabapentin 600 mg twice a day along with baclofen 10 mg at bedtime from our office. Patient denies any side effects from this medication. Her Julian is [id number]. Its been reviewed and appropriate. Review of Systems: General: No recent weight changes, no fever, no sleep disturbances Respiratory: No cough, no shortness of air, no recurring pulmonary infections Cardiovascular/peripheral vascular: No chest pain, no palpitations, no edema, no shortness of breath Gastrointestinal: No new onset incontinence, normal bowel movements reported Genitourinary: No new onset incontinence Musculoskeletal: Neck pain, shoulder pain Psychiatric: [Normal mood/affect] Neurological: [Denies weakness in extremities], [denies balance issues] Objective:: Physical Exam: General: Alert and oriented x3, no acute distress, pleasant and cooperative Lungs: Respirations even and unlabored, symmetrical chest expansion Eyes: PERRL Musculoskeletal: Flexion and extension of cervical [spine] somewhat guarded secondary to pain, [antalgic gait noted] Neurological: Speech clear, no gross sensory deficit Assessment:: Degenerative disc disease of cervical spine with cervical radiculopathy symptoms, cervical spondylosis, cervical spinal stenosis, neck pain, myofascial pain, low back pain Plan:: Patient has had significant improvement following her trigger point injections and does not require any additional injective therapy at this time. I will order the patient physical therapy related to her neck and shoulder pain. I will also send in a refill of her baclofen 10 mg at bedtime and provide a 1 month supply of this medication. Patient will return to clinic in 1 month for reevaluation of symptoms and plan of care. Patient has been instructed to contact the clinic with any concerns before the next appointment. Dr. Meza has reviewed this note and agrees with this plan of care. This note was dictated using voice recognition software and make contain errors or omissions. [facility] Disclaimer: The information contained in this section may have been updated after the patient was seen, as this information can be updated by other users. Medical History Anxiety Bronchitis Depression Essential hypertension History of gastroesophageal reflux (GERD) Hyperlipidemia Hyperlipidemia Hypertension Hyperthyroidism Hyperthyroidism Hyperthyroidism determined by thyroid function test Hyponatremia Vitamin D deficiency Surgical History History of spinal surgery Family History Other Cancer Coronary artery disease Diabetes Social History Smoking Status: Never smoker alcohol intake: never substance use type: denies use current occupational status: employed ([employer]) Travel in
[2023-03-08 10:26] VITALS: BP 125/76; PULSE 58; RESP 18; O2SAT 97; BMI 29.4
== END | disposition home or self-care (01) ==
PROVIDERS: PCP Family Medicine; Visit Provider Nurse Practitioner Family
DX: M50.10 Cervical disc disorder with radiculopathy, unspecified cervical region (principal); M47.22 Other spondylosis with radiculopathy, cervical region; M48.02 Spinal stenosis, cervical region; M79.10 Myalgia, unspecified site; M54.50 Low back pain, unspecified
CPT/HCPCS: 99212; G0463

== ENCOUNTER → 2023-03-10 15:19 | Outpatient (CLI) | payer MEDICARE, OTHER, SELFPAY ==
--- NOTE | 2023-03-10 15:22 | XR_ITS ---
FINAL REPORT CLINICAL HISTORY: left hip pain radiating to left ankle x mos, NKT FINDINGS: Left hip Three views were obtained. There is no acute fracture or dislocation. The joint spaces appear normal. There are mild degenerative changes in the lower lumbar spine. No soft tissue abnormality is identified. IMPRESSION: No acute process. Reviewed, Interpreted and Dictated by Julián Alas III, MD Transcribed by Janee Knight Authenticated and [facility]
== END ==
PROVIDERS: PCP Family Medicine; Visit Provider Nurse Practitioner
DX: M54.10 Radiculopathy, site unspecified (principal); M25.551 Pain in right hip
CPT/HCPCS: 73502

== ENCOUNTER → 2023-03-27 23:57 | Outpatient (CLI) | payer MEDICARE, OTHER, SELFPAY ==
[2023-03-27 18:56] LABS: Free T4 (Free Thyroxine) 1.37 ng/dl (0.78-2.19)
== END ==
PROVIDERS: PCP Family Medicine; Visit Provider Family Medicine
DX: F33.1 Major depressive disorder, recurrent, moderate (principal); E05.90 Thyrotoxicosis, unspecified without thyrotoxic crisis or storm
CPT/HCPCS: 84439; 84443; 84481

== ENCOUNTER 2023-04-12 10:00 | Outpatient (RCR) | payer MEDICARE, OTHER, SELFPAY ==
--- NOTE | 2023-03-22 11:05 | HMH.PTOPEV ---
PT Outpatient Evaluation Rehab PT Outpatient Evaluation Start: 03/22/23 08:06 Freq: Status: Active Protocol: Document 03/22/23 10:27 ROBBIECHERISE (Rec: 03/22/23 10:40 MICHAEL [id number]) E-signed By Soy Aranda, PT Outpatient Therapy Subjective History Subjective History Patient is a 68 year old female presenting to outpatient PT with reports of BLE pain/weakness (R>L) starting approx 3 months ago. Patient reports onset of symptoms after changing mattresses at home. No recent imaging to report. No other comorbidities to report. Chief Complaint Pain,Stiff Symptom Type Throb,Sharp,Dull Symptoms Relieved By Rest/Positioning,OTC Meds Symptoms Aggravated By Standing,Physical Activity, Walking Prior Functional Limitations None Current Functional Limitations Housework,Standing,Walking, Stairs,Balance Symptom Description Intermittent Level of pain today (0-10) 3 Pain scale - at its best (0-10) 0 Pain scale - at its worst (0-10) 7 Hip/Knee Eval Gait Observation General Gait Pattern Observation No Deviations/Normal Assistive Device Assistive Devices None / NA Palpation Tenderness left Knee Palpation Overall Comment Piriformis mm 2/4 Hip Palpation Findings Tenderness MMT bilateral Hip Flexion Strength Grade 4 Good Hip Abduction Strength Grade 4 Good Hip Adduction Strength Grade 4 Good Hip Extension Strength Grade 4 Good Hip External Rotation Strength Grade 4 Good Hip Internal Rotation Strength Grade 4 Good Knee Extension Strength Grade 4 Good Knee Flexion Strength Grade 4 Good ROM Hip ROM Reason Not Measured Within Functional Limits Knee ROM Reason Not Measured Within Functional Limits Special Tests Hip Ben Test Positive Left,Positive Right Hip Piriformis Test Positive Left,Positive Right Hip 90-90 Straight Leg Raise Test Positive Left,Positive Right Outpatient Therapy Assessment Impairments Problems/Impairmments Palpation Tenderness,Impaired Strength,Impaired Walking, Impaired Standing,Impaired Household Care,Impaired Stair Climbing,Subjective C/O Pain Prognosis Rehab Potential Good Clinical Impression Consistent with Diagnosis Yes Short Term Goals Number of Weeks 2 Decrease Subjective C/O Pain Yes: 5/10 at worst
== END 2023-04-12 10:05 | disposition home or self-care (01) ==
LOC: PT 10:00
PROVIDERS: PCP Family Medicine; Visit Provider Nurse Practitioner
DX: M25.552 Pain in left hip (principal); M25.572 Pain in left ankle and joints of left foot; M54.10 Radiculopathy, site unspecified
CPT/HCPCS: 97010; 97014; 97035; 97110; 97163; G0283

== ENCOUNTER → 2023-04-14 10:06 | Outpatient (CLI) | payer MEDICARE, OTHER, SELFPAY ==
[2023-04-16 08:10] LABS: Triiodothyronine (T3) Free 2.6 pg/mL (2.0-4.4)
== END ==
PROVIDERS: PCP Family Medicine; Visit Provider Family Medicine
DX: E05.90 Thyrotoxicosis, unspecified without thyrotoxic crisis or storm (principal)

== ENCOUNTER → 2023-04-19 09:23 | Outpatient (POV) | payer MEDICARE, OTHER, SELFPAY ==
[2023-04-19 09:38] VITALS: BP 147/86; PULSE 63; RESP 18; O2SAT 97; BMI 30.7
--- NOTE | 2023-04-19 09:50 | EXP.PAIN.SOA ---
[facility] Pain Management SOAP Note Subjective:: Patient is a pleasant 68-year-old female who presents today for 1 month follow-up. We are currently treating the patient for degenerative disc disease of cervical spine with cervical radiculopathy symptoms, cervical spondylosis, cervical spinal stenosis, neck pain, myofascial pain, low back pain. Today she rates her pain a 5 out of 10. Patient denies any new trauma or injury. She does state that she has been going to physical therapy since our last visit and that it is helping and that they are working on her posture. She does state that she still has popping in her neck when turning her head from side to side. She states the numbness and tingling into her upper extremities has not returned at this time. Patient is currently managed with gabapentin 600 mg twice a day from her primary care provider and baclofen 10 mg at bedtime from our office. Patient denies any side effects from this medication. Her Julian is [id number]. Its been reviewed and appropriate. Review of Systems: General: No recent weight changes, no fever, no sleep disturbances Respiratory: No cough, no shortness of air, no recurring pulmonary infections Cardiovascular/peripheral vascular: No chest pain, no palpitations, no edema, no shortness of breath Gastrointestinal: No new onset incontinence, normal bowel movements reported Genitourinary: No new onset incontinence Musculoskeletal: Neck pain Psychiatric: [Normal mood/affect] Neurological: [Denies weakness in extremities], [denies balance issues] Objective:: Physical Exam: General: Alert and oriented x3, no acute distress, pleasant and cooperative Lungs: Respirations even and unlabored, symmetrical chest expansion Eyes: PERRL Musculoskeletal: Flexion and extension of cervical [spine] somewhat guarded secondary to pain, [antalgic gait noted] Neurological: Speech clear, no gross sensory deficit Assessment:: Degenerative disc disease of cervical spine with cervical radiculopathy symptoms, cervical spondylosis, cervical spinal stenosis, neck pain, myofascial pain, low back pain Plan:: Patient is doing well with her physical therapy regimen to help with her neck pain. I have discussed with the patient that if she continues to have limited range of motion or tenderness in her neck we can always do trigger point's again. At this time I will refill her baclofen 10 mg at bedtime and provide a 2 month supply of of this medication. Patient will return to clinic in 2 months for reevaluation of symptoms and plan of care. Patient has been instructed to contact the clinic with any concerns before the next appointment. Dr. Meza has reviewed this note and agrees with this plan of care. This note was dictated using voice recognition software and make contain errors or omissions. [facility] Disclaimer: The information contained in this section may have been updated after the patient was seen, as this information can be updated by other users. Medical History Anxiety Bronchitis Depression Essential hypertension History of gastroesophageal reflux (GERD) Hyperlipidemia Hyperlipidemia Hypertension Hyperthyroidism Hyperthyroidism Hyperthyroidism determined by thyroid function test Will need lab work at next visit Hyponatremia Resume 10meg KCL daily MDD (major depressive disorder), recurrent, with melancholic features Radicular pain of left lower extremity Vitamin D deficiency Surgical History History of spinal surgery Family History Other Cancer Coronary artery disease Diabetes Social History Smoking Status: Never smoker alcohol intake: never substance use type: denies use current occupational status: retired Travel in the last 8 weeks: None
== END ==
PROVIDERS: PCP Family Medicine; Visit Provider Nurse Practitioner Family
DX: M50.10 Cervical disc disorder with radiculopathy, unspecified cervical region (principal); M47.22 Other spondylosis with radiculopathy, cervical region; M48.02 Spinal stenosis, cervical region; M79.10 Myalgia, unspecified site; M54.50 Low back pain, unspecified
CPT/HCPCS: 99212; G0463

== ENCOUNTER 2023-05-03 16:00 | Outpatient (RCR) | payer MEDICARE, OTHER, SELFPAY ==
--- NOTE | 2023-03-22 10:24 | HMH.PTOPEV ---
PT Outpatient Evaluation Rehab PT Outpatient Evaluation Start: 03/22/23 10:05 Freq: Status: Active Protocol: Document 03/22/23 10:05 SAMITHALIA (Rec: 03/22/23 10:24 MICHAEL [id number]) E-signed By Soy Aranda, PT Outpatient Therapy Subjective History Subjective History Patient is a 68 year old female presenting to outpatient PT with reports of chronic cervical spine pain of insidious onset starting approx 25 years ago. Most recent imaging indicates multilevel DDD, spondylosis and post-changes from C 5/6 fusion. No reports of radicular symptoms. Patient also reports previous upper thoracic surgery approx 5 years ago. She has been referred by pain management where she had an ablasion and injections that have provided some significant relief per patient report. Comorbidities include hx of HTN, HL and L ankle fracture. Chief Complaint Pain,Clicks Symptom Type Sharp Symptoms Relieved By Heat,Ice,Prescription Meds Symptoms Aggravated By Physical Activity,Lifting Prior Functional Limitations None Current Functional Limitations Reaching,Lifting,Housework, Driving,Sleeping Symptom Description Constant but Variable Level of pain today (0-10) 3 Pain scale - at its best (0-10) 3 Pain scale - at its worst (0-10) 8 Cervical Eval Palpation Cervical Muscles R Cervical Paraspinal,L Cervical Paraspinal,R CT Junction,L CT Junction,R Upper Trapezius,L Upper Trapezius,R Thoracic Paraspinals,L Thoracic Paraspinals Cervical/Thoracic Palpation Findings Tenderness Posture Head/C-Spine Posture Sitting Position C-Spine Flattened Head/C-Spine Posture Standing Position C-Spine Flattened Flexibility Deficits Upper Trapezius Muscle Length (R) Moderate Tightness,(L) Moderate Tightness Levaetor Scapulae Muscle Length (R) Moderate Tightness,(L) Moderate Tightness Pectoralis Minor Muscle Length (R) Moderate Tightness,(L) Moderate Tightness Passive Joint Mobility Cervical PIVM
--- NOTE | 2023-04-19 11:33 | HMH.RHREAS ---
Rehab Reassessment Rehab OP Re-assessment Start: 03/22/23 10:05 Freq: Status: Active Protocol: Document 04/19/23 11:24 MICHAEL (Rec: 04/19/23 11:32 MICHAEL [id number]) E-signed By Soy Aranda, PT Rehab Re-assessment Subjective Subjective Patient reports 50% improvement since start of care. Objective Objective Notes AROM: flx 37; ext 32; SBr 27; SBl 30; Rr 49; Rl 61 MMT: WNL Pain: 5/10 currently; 7/10 at worst over past week Neuro: WNL Special tests: - Assessment Progress Assessment Progressing as Expected Assessment Notes Main concern at this time is persistent L sided CS pain/ stiffness with right rotation. Questionable compliance noted with HEP. Patient would benefit from continuing with skilled PT services in order to address functional limitations with driving and lifting activities. Patient goals met STG 2 Goals Not Met All others Revised Goals NA Plan Plan Continue with current POC. Frequency of Therapy 2x/week Duration of therapy 4 weeks Time and Billing Re-Eval Time 16 Re-Eval Billing Units 1 PHYSICIAN CERTIFICATION: I certify the specified therapy services for Ame Kitchen are required, authorized, and reviewed every 30 days.
== END 2023-05-03 16:05 | disposition home or self-care (01) ==
LOC: PT 16:00
PROVIDERS: PCP Family Medicine; Visit Provider Nurse Practitioner Family
DX: M54.2 Cervicalgia (principal); M25.511 Pain in right shoulder; M25.512 Pain in left shoulder
CPT/HCPCS: 97010; 97014; 97035; 97110; 97163; 97164; 97530; G0283

== ENCOUNTER 2023-06-08 14:24 | Emergency (ER) | payer MEDICARE, OTHER, SELFPAY ==
[2023-06-08] VITALS (8 sets, daily range): BP systolic 118–138; BP diastolic 69–83; PULSE 54–64; RESP 16; TEMP 36.8; O2SAT 93–97; BMI 30.7
--- NOTE | 2023-06-08 14:32 | XR_ITS ---
FINAL REPORT CLINICAL HISTORY: Left hand pain, fall FINDINGS: LEFT HAND Three views demonstrate a nondisplaced fracture of the distal radius. The fracture line extends to the radiocarpal joint. Mild degenerative changes are seen in the hand. The soft tissues are unremarkable. IMPRESSION: Nondisplaced fracture of the distal radius as above. Reviewed, Interpreted and Dictated by Julián Alas III, MD Transcribed by Geetha Juárez Authenticated and [facility]
--- NOTE | 2023-06-08 14:32 | CT_ITS ---
FINAL REPORT CLINICAL HISTORY: Headache after a fall COMPARISON: 08/07/2022 FINDINGS: Axial images of the head were obtained without contrast. Coronal reformatted images were also obtained.This study was performed with techniques to keep radiation doses as low as reasonably achievable (ALARA). Individualized dose reduction techniques using automated exposure control or adjustment of mA and/or kV according to the patient's size were employed. There is no evidence of intracranial hemorrhage or mass. The ventricular size is within normal limits. There is no evidence of shift of the midline structures. No abnormal extra axial fluid collection is identified. No skull abnormality is seen on the bone window images. IMPRESSION: No acute intracranial abnormality. Reviewed, Interpreted and Dictated by Julián Alas III, MD Transcribed by Geetha Juárez Authenticated and [facility]
--- NOTE | 2023-06-08 14:32 | XR_ITS ---
FINAL REPORT CLINICAL HISTORY: Left wrist pain fall, pain FINDINGS: LEFT WRIST Three views demonstrate a nondisplaced fracture of the distal radius. The fracture line extends to the radiocarpal joint. The soft tissues are unremarkable. IMPRESSION: Nondisplaced fracture of the distal radius as above. Reviewed, Interpreted and Dictated by Julián Alas III, MD Transcribed by Geetha Juárez Authenticated and [facility]
--- NOTE | 2023-06-08 14:32 | CT_ITS ---
FINAL REPORT CLINICAL HISTORY: Neck pain after a fall FINDINGS: Axial CT images of the cervical spine were obtained without contrast. Sagittal and coronal reformatted images were also obtained. This study was performed with techniques to keep radiation doses as low as reasonably achievable (ALARA). Individualized dose reduction techniques using automated exposure control or adjustment of mA and/or kV according to the patient's size were employed. There is no evidence of fracture or dislocation. The bony alignment is normal. There has been fusion of C5-6. There are mild and moderate degenerative changes. There is no evidence of canal stenosis. No paraspinous soft tissue abnormality is seen. Limited images of the upper thorax are unremarkable. IMPRESSION: No fracture or acute bony abnormality identified. Reviewed, Interpreted and Dictated by Julián Alas III, MD Transcribed by Geetha Juárez Authenticated and . [facility]
--- NOTE | 2023-06-08 14:32 | XR_ITS ---
FINAL REPORT CLINICAL HISTORY: Left arm pain fall, pain FINDINGS: LEFT FOREARM Three views demonstrate a nondisplaced fracture of the distal radius. The fracture line extends to the radiocarpal joint. The soft tissues are unremarkable. IMPRESSION: Nondisplaced fracture of the distal radius as above. Reviewed, Interpreted and Dictated by Julián Alas III, MD Transcribed by Geetha Juárez Authenticated and [facility]
--- NOTE | 2023-06-08 14:33 | HMH.EDGENADL ---
Discharge Plan Disposition Patient Disposition: Home, Self-Care Condition: Good Prescriptions Prescriptions: No Action omega 2-fkb-rbh-fish oil 100 mg-160 mg-1,000 mg capsule 100-160-1,000 mg capsule 1 cap PO DAILY Rx Instructions: PO daily; lisinopril 20 mg tablet 20 mg PO DAILY triamcinolone acetonide 0.5 % cream 1 applic topical TID Qty: 30 0RF triamterene-hydrochlorothiazid 37.5-25 mg tablet 1 tab PO DAILY Qty: 30 5RF biotin 5,000 mcg tablet, sublingual 5,000 mcg sublingual DAILY duloxetine 60 mg capsule,delayed release(DR/EC) 60 mg PO DAILY Qty: 90 0RF duloxetine 30 mg capsule,delayed release(DR/EC) 30 mg PO DAILY Qty: 30 1RF gabapentin 600 mg tablet 600 mg PO BID Qty: 60 3RF metoprolol succinate 100 mg tablet extended release 24 hr 100 mg PO HS Qty: 90 1RF potassium chloride 10 mEq tablet extended release 10 meq PO DAILY Qty: 30 0RF cholecalciferol (vitamin D3) 125 MCG capsule 5,000 iunits PO DAILY rosuvastatin 20 mg tablet See Rx Instructions .ROUTE .COMPLEX Rx Instructions: TAKE 1 TABLET ORALLY ONCE DAILY baclofen 10 mg tablet 10 mg PO HS Qty: 30 0RF omeprazole 40 mg capsule,delayed release(DR/EC) 40 mg PO DAILY Referrals Follow up/Referrals: Alecia Sims MD [Primary Care Provider] - See instructions Jim Glover DO [Staff Physician] - See instructions Activity Restrictions/Add. Instructions Additional Instructions/Restrictions: Please follow-up with orthopedic doctor. I have placed a referral. Please return to the emergency department if you experience any new or worsening symptoms. Clinical Impressions Clinical Impression: Acute pain of left wrist Fall Qualifiers: Encounter type: initial encounter Qualified Code(s): W19.XXXA - Unspecified fall, initial encounter Contusion of scalp Qualifiers: Encounter type: initial encounter Qualified Code(s): S00.03XA - Contusion of scalp, initial encounter Distal radial fracture Qualifiers: Encounter type: initial encounter Fracture type: closed Fracture morphology: other fracture Laterality: left Qualified Code(s): S52.592A - Other fractures of lower end of left radius, initial encounter for closed fracture Discharge ED Provider: Fadi Green Adult HPI <Christie Sanchez, DO - Last Filed: 06/08/23 15:54> General Chief complaint: Fall Stated complaint: ao 06/07 fell twice at home wrist and head pain Time Seen by Provider: 06/08/23 14:30 History of Present Illness HPI narrative: This patient is a 68-year-old female with a history of hypertension, hyperlipidemia, BRIAN, hypothyroidism, and chronic pain presenting to the emergency department for evaluation with concern for left wrist pain after mechanical fall that happened yesterday. She states that she was pulling weeds yesterday on an incline when she fell twice. 1 time she had the top of her head and developed a knot on top of her head. The second time she injured her left wrist. She put a brace on it at home without good improvement. She denies any loss of consciousness, vision changes, numbness, tingling, weakness, vomiting, or other concerns. She denies any other injuries. She denies any use of anticoagulation. Otherwise, she has felt fine. Related Data Home Medications Medication Instructions Recorded Confirmed cholecalciferol (vitamin D3) 125 5,000 iunits PO DAILY Osteoporosis 10/05/21 05/31/23 mcg (5,000 unit) capsule omega 2-snv-erf-fish oil 100 1 cap PO DAILY SUPPLIMENT 10/19/21 05/31/23 mg-160 mg-1,000 mg capsule (Fish Oil) lisinopril 20 mg tablet 20 mg PO DAILY bp 09/16/22 05/31/23 omeprazole 40 mg capsule,delayed 40 mg PO DAILY . 01/10/23 05/31/23 release rosuvastatin 20 mg tablet See Rx Instructions .Route 02/14/23 05/31/23 .COMPLEX . biotin 5,000 mcg sublingual tablet 5,000 mcg sublingual DAILY 03/29/23 05/31/23 SUPPLIMENT Previous Rx's Medicatio
--- NOTE | 2023-06-08 16:19 | PC.NURSE ---
call made to radiology for rad reads, was told will fax down.
== END 2023-06-08 17:02 | disposition home or self-care (01) ==
PROVIDERS: Emergency Provider Emergency Medicine; PCP Family Medicine
DX: S52.592A Other fractures of lower end of left radius, initial encounter for closed fracture (principal); M25.532 Pain in left wrist; S00.03XA Contusion of scalp, initial encounter; I10 Essential (primary) hypertension; E78.5 Hyperlipidemia, unspecified; E03.9 Hypothyroidism, unspecified; G47.33 Obstructive sleep apnea (adult) (pediatric); F33.9 Major depressive disorder, recurrent, unspecified; E55.9 Vitamin D deficiency, unspecified; K21.9 Gastro-esophageal reflux disease without esophagitis; F41.9 Anxiety disorder, unspecified; W19.XXXA Unspecified fall, initial encounter; Z87.891 Personal history of nicotine dependence
CPT/HCPCS: 29125; 70450; 72125; 73090; 73110; 73130; 99285

== ENCOUNTER → 2023-07-06 10:06 | Outpatient (CLI) | payer MEDICARE, OTHER, SELFPAY ==
--- NOTE | 2023-07-06 10:11 | XR_ITS ---
FINAL REPORT CLINICAL HISTORY: lt wrist fx, fell 06/07/2023, pain/swelling/bruising COMPARISON: 06/08/2023 FINDINGS: Left wrist Three views were obtained. There is a nondisplaced fracture of the distal radius. Mild degenerative changes are present. No soft tissue abnormality is identified. IMPRESSION: Fracture as above. Reviewed, Interpreted and Dictated by Julián Alas III, MD Transcribed by Janee Knight Authenticated and [facility]
== END ==
PROVIDERS: PCP Family Medicine; Visit Provider Orthopaedic Surgery
DX: S52.502A Unspecified fracture of the lower end of left radius, initial encounter for closed fracture (principal); Y99.9 Unspecified external cause status
CPT/HCPCS: 73110

== ENCOUNTER → 2023-07-13 14:15 | Outpatient (POV) | payer MEDICARE, OTHER, SELFPAY ==
--- NOTE | 2023-07-13 15:03 | EXP.PAIN.SOA ---
[facility] Pain Management SOAP Note Subjective:: Patient is a pleasant 68-year-old female who presents today for 2-month follow-up and medication refill. We are currently treating the patient for degenerative disc disease of her cervical spine with cervical radiculopathy symptoms, cervical spinal stenosis, cervical spondylosis, neck pain, myofascial pain, low back pain. Today she rates her pain a 5 out of 10. Patient denies any new trauma or injury. She denies any change location or type of pain she experiences. Patient is currently managed with baclofen 10 mg at bedtime from our office and gabapentin 600 mg twice a day from Dr. Sims's office. Patient does state today that Dr. Sims does not come every month and she does have some difficulty getting her gabapentin refilled and states that the nurse practitioner she will occasionally see is unable to refill this prescription. She is requesting our office to take over this medication. Her Julian has been reviewed and is appropriate. Review of Systems: General: No recent weight changes, no fever, no sleep disturbances Respiratory: No cough, no shortness of air, no recurring pulmonary infections Cardiovascular/peripheral vascular: No chest pain, no palpitations, no edema, no shortness of breath Gastrointestinal: No new onset incontinence, normal bowel movements reported Genitourinary: No new onset incontinence Musculoskeletal: Neck pain Psychiatric: [Normal mood/affect] Neurological: [Denies weakness in extremities], [denies balance issues] Objective:: Physical Exam: General: Alert and oriented x3, no acute distress, pleasant and cooperative Lungs: Respirations even and unlabored, symmetrical chest expansion Eyes: PERRL Musculoskeletal: Flexion and extension of cervical [spine] somewhat guarded secondary to pain, [antalgic gait noted] Neurological: Speech clear, no gross sensory deficit Assessment:: Degenerative disc disease of cervical spine with cervical radiculopathy symptoms, cervical spinal stenosis, cervical spondylosis, neck pain, low back pain, myofascial pain Plan:: I will send in a prescription of her baclofen 10 mg at bedtime and send in a new prescription of gabapentin 600 mg twice a day and provide a 2-month supply of these medications. I have counseled the patient to let her primary care office know that we are taking over this prescription at her request. Patient will return to clinic in 2 months for reevaluation of symptoms and plan of care. Patient has been instructed to contact the clinic with any concerns before the next appointment. Dr. Meza has reviewed this note and agrees with this plan of care. This note was dictated using voice recognition software and make contain errors or omissions. [facility] Disclaimer: The information contained in this section may have been updated after the patient was seen, as this information can be updated by other users. Medical History Anxiety Bronchitis Depression Essential hypertension History of gastroesophageal reflux (GERD) Hyperlipidemia Hyperlipidemia Hypertension Hyperthyroidism Hyperthyroidism Hyperthyroidism determined by thyroid function test Will need lab work at next visit Hyponatremia Resume 10meg KCL daily MDD (major depressive disorder), recurrent, with melancholic features Radicular pain of left lower extremity Vitamin D deficiency Surgical History History of spinal surgery Family History Other Cancer Coronary artery disease Diabetes Social History Smoking Status: Former smoker alcohol intake: never substance use type: denies use current occupational status: retired Travel in the last 8 weeks: None household members: spouse housing: house number of children: 2 current occupation: [employer]
[2023-07-13 15:31] VITALS: BP 141/84; PULSE 65; RESP 18; O2SAT 98; BMI 30.7
== END | disposition home or self-care (01) ==
PROVIDERS: PCP Family Medicine; Visit Provider Nurse Practitioner Family
DX: M50.10 Cervical disc disorder with radiculopathy, unspecified cervical region (principal); M48.02 Spinal stenosis, cervical region; M47.22 Other spondylosis with radiculopathy, cervical region
CPT/HCPCS: 99212; G0463

== ENCOUNTER → 2023-08-10 10:35 | Outpatient (CLI) | payer MEDICARE, OTHER, SELFPAY ==
--- NOTE | 2023-08-10 10:39 | XR_ITS ---
FINAL REPORT CLINICAL HISTORY: left wrist fx COMPARISON: 07/06/2023 FINDINGS: LEFT WRIST Three views demonstrate a stable nondisplaced fracture at the base of the radial styloid. No new bony abnormality identified. The visualized joint spaces are normally aligned. The soft tissues are unremarkable. IMPRESSION: Stable nondisplaced fracture base of the radial styloid. No new bony abnormality Reviewed, Interpreted and Dictated by Julián Alas III, MD Transcribed by Jackie White Authenticated and [facility]
== END ==
PROVIDERS: PCP Family Medicine; Visit Provider Orthopaedic Surgery
DX: S52.502A Unspecified fracture of the lower end of left radius, initial encounter for closed fracture (principal); M25.532 Pain in left wrist
CPT/HCPCS: 73110

== ENCOUNTER → 2023-08-15 07:49 | Outpatient (CLI) | payer MEDICARE, OTHER, SELFPAY ==
[2023-08-15 19:24] LABS: Basophils # 0.1 K/mm3 (0-0.2); Basophils % 1.1 % (0.1-2.0); Eosinophils # 0.2 K/mm3 (0.0-0.4); Eosinophils % 2.3 % (0.1-12.0); Hematocrit 43.2 % (37.0-47.0); Hemoglobin 15.3 g/dL (12.2-16.2); Lymphocytes # 2.2 K/mm3 (0.7-4.5); Lymphocytes % 33.4 % (10-50); Mean Corpuscular HGB Conc 35.3 g/dL (31.8-35.4); Mean Corpuscular Hemoglobin 31.4 pg (27.0-31.2); Mean Platelet Volume 9.5 fl (7.4-10.4); Monocytes # 0.6 K/mm3 (0.1-1.0); Monocytes % 9.2 % (1.7-9.3); Neutrophils # 3.6 K/mm3 (1.8-7.8); Neutrophils % 54.1 % (37.0-80.0); Platelet Count 272 K/mm3 (142-424); Red Blood Count 4.85 M/mm3 (4.20-5.40); Red Cell Distribution Width 13.6 % (11.5-17.5); White Blood Count 6.7 K/mm3 (4.8-10.8)
[2023-08-15 20:03] LABS: Alanine Aminotransferase 23 U/L (12-78); Albumin Level 4.7 g/dl (3.5-5.0); Albumin/Globulin Ratio 1.7 (1.1-1.8); Alkaline Phosphatase 80 U/L (38-126); Anion Gap 10.7 mEq/L (5-15); Aspartate Amino Transferase 35 U/L (14-36); Bilirubin,Total 0.6 mg/dl (0.2-1.3); Blood Urea Nitrogen 14 mg/dl (7-17); Calcium 9.2 mg/dl (8.4-10.2); Carbon Dioxide 30 mmol/L (22.0-30.0); Chloride 94 mmol/L (98-107); Estimated Glomerular Filt Rate 49 ml/min (>60); GFR (African American) 60 ML/MIN (>60); Globulin 2.7 g/dL (1.3-3.2); Glucose 108 mg/dl (74-100); Potassium 3.7 mmoL/L (3.5-5.1); Sodium 131 mmol/L (136-145); Total Protein,Serum 7.4 g/dl (6.3-8.2)
[2023-08-15 20:20] LABS: 25-OH Vitamin D, Total 57.6 ng/mL (30-100)
[2023-08-15 20:31] LABS: Thyroid Stimulating Hormone 1.14 uIU/mL (0.465-4.68)
[2023-08-15 20:57] LABS: Vitamin B12 > 1000 pg/mL (239-931)
== END ==
PROVIDERS: PCP Nurse Practitioner; Visit Provider Nurse Practitioner
DX: E05.90 Thyrotoxicosis, unspecified without thyrotoxic crisis or storm (principal); E55.9 Vitamin D deficiency, unspecified; E78.5 Hyperlipidemia, unspecified; F33.1 Major depressive disorder, recurrent, moderate; G47.33 Obstructive sleep apnea (adult) (pediatric); I10 Essential (primary) hypertension; R73.09 Other abnormal glucose; Z68.31 Body mass index [BMI] 31.0-31.9, adult
CPT/HCPCS: 80053; 82306; 82607; 83036; 84443; 85025

== ENCOUNTER → 2023-09-18 13:26 | Outpatient (POV) | payer MEDICARE, OTHER, SELFPAY ==
--- NOTE | 2023-09-18 13:45 | A.OFFVIS_ITS ---
[facility] Pain Management SOAP Note Subjective:: Patient is a pleasant 68-year-old female who presents today for follow-up and medication refill. We are currently treating the patient for degenerative disc disease of her cervical spine with cervical radiculopathy symptoms, cervical spinal stenosis, cervical spondylosis, neck pain, myofascial pain, low back pain. Today she rates her pain a 5 out of 10. Patient denies any new trauma or injury. She does state that overall she is doing about the same from her last visit. She states that she is no worse nor no better. Patient does state that the cold weather does seem to aggravate her symptoms. Patient is currently managed with baclofen 10 mg at bedtimeand gabapentin 600 mg twice a day. She denies any side effects from these medications. She does state that she has decreased her gabapentin to once a day. She states that she does take this at bedtime. Her Julian has been reviewed and is appropriate. Review of Systems: General: No recent weight changes, no fever, no sleep disturbances Respiratory: No cough, no shortness of air, no recurring pulmonary infections Cardiovascular/peripheral vascular: No chest pain, no palpitations, no edema, no shortness of breath Gastrointestinal: No new onset incontinence, normal bowel movements reported Genitourinary: No new onset incontinence Musculoskeletal: Neck pain Psychiatric: [Normal mood/affect] Neurological: [Denies weakness in extremities], [denies balance issues] Objective:: Physical Exam: General: Alert and oriented x3, no acute distress, pleasant and cooperative Lungs: Respirations even and unlabored, symmetrical chest expansion Eyes: PERRL Musculoskeletal: Flexion and extension of cervical [spine] somewhat guarded secondary to pain, [antalgic gait noted] Neurological: Speech clear, no gross sensory deficit Assessment:: degenerative disc disease of her cervical spine with cervical radiculopathy symptoms, cervical spinal stenosis, cervical spondylosis, neck pain, myofascial pain, low back pain Plan:: I will refill the patient's gabapentin however change it to 300 mg 2 tabs at bedtime and baclofen 10 mg at bedtime and provide a 3-month supply of these medications. I have discussed with the patient if she does decide to continue to decrease her gabapentin that she would just take 1 tablet at bedtime. We will follow-up with this at her next appointment. Patient will return to clinic in 3 months for reevaluation of symptoms and plan of care. Patient has been instructed to contact the clinic with any concerns before the next appointment. Dr. Meza has reviewed this note and agrees with this plan of care. This note was dictated using voice recognition software and make contain errors or omissions. [facility] Disclaimer: The information contained in this section may have been updated after the patient was seen, as this information can be updated by other users. Medical History Anxiety Bronchitis Depression Essential hypertension History of gastroesophageal reflux (GERD) Hyperlipidemia Hyperlipidemia Hypertension Hyperthyroidism Hyperthyroidism Hyperthyroidism determined by thyroid function test Will need lab work at next visit Hyponatremia Resume 10meg KCL daily MDD (major depressive disorder), recurrent, with melancholic features Radicular pain of left lower extremity Vitamin D deficiency Surgical History History of spinal surgery Family History Other Cancer Coronary artery disease Diabetes Social History Smoking Status: Former smoker alcohol intake: never substance use type: denies use current occupational status: retired Travel in the last 8 weeks: None household members: spouse housing: house number of children: 2 current occupation: [employer] current occupational exposures/hazards: No caffeine: Yes
[2023-09-18 14:01] VITALS: BP 122/80; PULSE 64; RESP 18; O2SAT 94; BMI 29.3
== END | disposition home or self-care (01) ==
PROVIDERS: PCP Family Medicine; Visit Provider Nurse Practitioner Family
DX: M50.10 Cervical disc disorder with radiculopathy, unspecified cervical region (principal); M48.02 Spinal stenosis, cervical region; M47.22 Other spondylosis with radiculopathy, cervical region; M79.10 Myalgia, unspecified site; M54.50 Low back pain, unspecified
CPT/HCPCS: 99212; G0463

== ENCOUNTER 2023-12-18 13:05 | Outpatient (POV) | payer MEDICARE, OTHER, SELFPAY ==
[2023-12-18 13:13] VITALS: BP 134/80; PULSE 61; RESP 16; O2SAT 100; BMI 28.2
--- NOTE | 2023-12-18 13:14 | A.OFFVIS_ITS ---
[facility] Pain Management SOAP Note Subjective:: Patient is a pleasant 68-year-old female who presents today for 3-month follow- up and medication refill. Today she rates her pain as a 5 out of 10. Patient denies any new trauma or injury. She does state that overall she is doing well. She does state that she is only taking gabapentin 300 mg 1 tablet at bedtime along with her baclofen 10 mg at night. Patient denies any side effects from this medication. She is requesting refills. Her Julian has been reviewed and is appropriate. Review of Systems: General: No recent weight changes, no fever, no sleep disturbances Respiratory: No cough, no shortness of air, no recurring pulmonary infections Cardiovascular/peripheral vascular: No chest pain, no palpitations, no edema, no shortness of breath Gastrointestinal: No new onset incontinence, normal bowel movements reported Genitourinary: No new onset incontinence Musculoskeletal: Neck pain Psychiatric: [Normal mood/affect] Neurological: [Denies weakness in extremities], [denies balance issues] Objective:: Physical Exam: General: Alert and oriented x3, no acute distress, pleasant and cooperative Lungs: Respirations even and unlabored, symmetrical chest expansion Eyes: PERRL Musculoskeletal: Flexion and extension of cervical [spine] somewhat guarded secondary to pain, [antalgic gait noted] Neurological: Speech clear, no gross sensory deficit Assessment:: Degenerative disc disease of cervical spine with cervical radiculopathy symptoms, cervical spinal stenosis, cervical spondylosis, neck pain, myofascial pain, low back pain Plan:: Patient is doing well with her current medication regimen. I will change her gabapentin to 300 mg at bedtime and provide a 3-month supply of this medication along with her baclofen 10 mg at bedtime. Patient will return to clinic in 3 months for reevaluation of symptoms and plan of care. Patient has been instructed to contact the clinic with any concerns before the next appointment. Dr. Meza has reviewed this note and agrees with this plan of care. This note was dictated using voice recognition software and make contain errors or omissions. [facility] Disclaimer: The information contained in this section may have been updated after the patient was seen, as this information can be updated by other users. Medical History MDD (major depressive disorder), recurrent, with melancholic features Radicular pain of left lower extremity Hyperthyroidism Vitamin D deficiency Hyperlipidemia Essential hypertension Bronchitis Hyponatremia Resume 10meg KCL daily Hyperthyroidism determined by thyroid function test Will need lab work at next visit Hyperthyroidism Depression Anxiety History of gastroesophageal reflux (GERD) Hyperlipidemia Hypertension Surgical History History of spinal surgery Family History Other Cancer Coronary artery disease Diabetes Social History Smoking Status: Former smoker alcohol intake: never substance use type: denies use current occupational status: retired Travel in the last 8 weeks: None household members: spouse housing: house number of children: 2 current occupation: to be current occupational exposures/hazards: No caffeine: Yes
== END 2023-12-18 23:59 | disposition home or self-care (01) ==
PROVIDERS: PCP Family Medicine; Visit Provider Nurse Practitioner Family
DX: M50.10 Cervical disc disorder with radiculopathy, unspecified cervical region (principal); M47.22 Other spondylosis with radiculopathy, cervical region; M48.02 Spinal stenosis, cervical region; M79.10 Myalgia, unspecified site; M54.50 Low back pain, unspecified
CPT/HCPCS: 99212; G0463

== ENCOUNTER 2023-12-26 18:00 | Outpatient (CLI) | payer MEDICARE, OTHER, SELFPAY ==
[2023-12-26 18:55] LABS: Alanine Aminotransferase 18 U/L (12-78); Albumin Level 4.2 g/dl (3.5-5.0); Alkaline Phosphatase 62 U/L (38-126); Anion Gap 7.7 mEq/L (5-15); Aspartate Amino Transferase 28 U/L (14-36); Bilirubin,Total 0.5 mg/dl (0.2-1.3); Blood Urea Nitrogen 15 mg/dl (7-17); Calcium 9.4 mg/dl (8.4-10.2); Carbon Dioxide 32 mmol/L (22.0-30.0); Chloride 93 mmol/L (98-107); Estimated Glomerular Filt Rate 55 ml/min (>60); GFR (African American) 67 ML/MIN (>60); Globulin 2.1 g/dL (1.3-3.2); Glucose 110 mg/dl (74-100); Potassium 3.7 mmoL/L (3.5-5.1); Sodium 129 mmol/L (136-145); Total Protein,Serum 6.3 g/dl (6.3-8.2)
[2023-12-26 19:15] LABS: Hemoglobin A1C 5.9 % (4.0-6.0)
[2023-12-26 19:53] LABS: Creatinine,Urine Random 207 mg/dL (Not Estab.)
[2023-12-26 19:55] LABS: Microalbumin/Creatinine Ratio 4.4
== END 2023-12-26 23:59 | disposition home or self-care (01) ==
LOC: LAB.DROPOF 12-27 10:00
PROVIDERS: PCP Nurse Practitioner; Visit Provider Nurse Practitioner
DX: I10 Essential (primary) hypertension (principal); R73.01 Impaired fasting glucose; Z79.899 Other long term (current) drug therapy
CPT/HCPCS: 80053; 82043; 82570; 83036

== ENCOUNTER 2024-01-25 14:21 | Outpatient (POV) | payer MEDICARE, OTHER, SELFPAY ==
[2024-01-25 14:37] VITALS: BP 141/82; PULSE 67; RESP 16; O2SAT 98; BMI 28.2
--- NOTE | 2024-01-25 15:20 | A.OFFVIS_ITS ---
[facility] Pain Management SOAP Note Subjective:: Patient is a pleasant 69-year-old female who presents today for 3-month follow- up and medication refill. Today she rates her pain a 6 out of 10. Patient does state that her neck and left shoulder are continuing to give her issues however denies any new trauma or injury. Patient is currently managed with gabapentin 300 mg at bedtime and baclofen 10 mg at bedtime. She states that this combination is working well and denies any side effects. Her Julian has been reviewed and is appropriate. Review of Systems: General: No recent weight changes, no fever, no sleep disturbances Respiratory: No cough, no shortness of air, no recurring pulmonary infections Cardiovascular/peripheral vascular: No chest pain, no palpitations, no edema, no shortness of breath Gastrointestinal: No new onset incontinence, normal bowel movements reported Genitourinary: No new onset incontinence Musculoskeletal: Neck pain, left shoulder pain Psychiatric: [Normal mood/affect] Neurological: [Denies weakness in extremities], [denies balance issues] Objective:: Physical Exam: General: Alert and oriented x3, no acute distress, pleasant and cooperative Lungs: Respirations even and unlabored, symmetrical chest expansion Eyes: PERRL Musculoskeletal: Flexion and extension of cervical [spine] somewhat guarded secondary to pain, [antalgic gait noted] Neurological: Speech clear, no gross sensory deficit Assessment:: Degenerative disc disease of cervical spine with cervical radiculopathy symptoms, cervical spinal stenosis, cervical spondylosis, neck pain, myofascial pain, low back pain Plan:: I will provide a 90-day supply of her gabapentin and baclofen. Patient was counseled that if her neck and shoulder symptoms do not seem to get better we can always do injections. We will follow-up with her at future visits regarding this. Patient will return to clinic in 4 months for reevaluation of symptoms and plan of care. Patient has been instructed to contact the clinic with any concerns before the next appointment. Dr. Meza has reviewed this note and agrees with this plan of care. This note was dictated using voice recognition software and make contain errors or omissions. [facility] Disclaimer: The information contained in this section may have been updated after the patient was seen, as this information can be updated by other users. Medical History (Updated 12/26/23 @ 13:30 by Vanessa Coronado APRN) IFG (impaired fasting glucose) MDD (major depressive disorder), recurrent, with melancholic features Radicular pain of left lower extremity Hyperthyroidism Vitamin D deficiency Hyperlipidemia Essential hypertension Bronchitis Hyponatremia Hyperthyroidism determined by thyroid function test Hyperthyroidism Depression Anxiety History of gastroesophageal reflux (GERD) Hyperlipidemia Hypertension Surgical History History of spinal surgery Family History Other Cancer Coronary artery disease Diabetes Social History Smoking Status: Former smoker alcohol intake: never substance use type: denies use current occupational status: other Travel in the last 8 weeks: None household members: spouse housing: house number of children: 2 current occupation: [employer] current occupational exposures/hazards: No caffeine: Yes
== END 2024-01-25 23:59 | disposition home or self-care (01) ==
PROVIDERS: PCP Family Medicine; Visit Provider Nurse Practitioner Family
DX: M50.10 Cervical disc disorder with radiculopathy, unspecified cervical region (principal); M48.02 Spinal stenosis, cervical region; M47.22 Other spondylosis with radiculopathy, cervical region; M79.10 Myalgia, unspecified site; M54.50 Low back pain, unspecified
CPT/HCPCS: 99212; G0463

== ENCOUNTER 2024-03-18 13:14 | Outpatient (POV) | payer MEDICARE, OTHER, SELFPAY ==
--- NOTE | 2024-03-18 13:24 | EXP.PAIN.SOA ---
[facility] Disclaimer: The information contained in this section may have been updated after the patient was seen, as this information can be updated by other users. Medical History IFG (impaired fasting glucose) MDD (major depressive disorder), recurrent, with melancholic features Radicular pain of left lower extremity Hyperthyroidism Vitamin D deficiency Hyperlipidemia Essential hypertension Bronchitis Hyponatremia Resume 10meg KCL daily Hyperthyroidism determined by thyroid function test Will need lab work at next visit Hyperthyroidism Depression Anxiety History of gastroesophageal reflux (GERD) Hyperlipidemia Hypertension Surgical History History of spinal surgery Family History Other Cancer Coronary artery disease Diabetes Social History Smoking Status: Former smoker alcohol intake: never substance use type: denies use current occupational status: other Travel in the last 8 weeks: None household members: spouse housing: house number of children: 2 current occupation: [email or web address] current occupational exposures/hazards: No caffeine: Yes PM Subjective & Objective Subjective Subjective:: Patient is a pleasant 69-year-old female who presents today for medication refill and follow-up. Today she rates her pain a 5 out of 10. Patient does state from her last visit she did end up falling off her bed about a month or so ago however it did not cause any long-lasting injuries. Patient is still taking her gabapentin 300 mg at bedtime and baclofen 10 mg at bedtime and feels like this is helping. She denies any side effects from this medication. Her Julian has been reviewed and is appropriate. Review of Systems: General: No recent weight changes, no fever, no sleep disturbances Respiratory: No cough, no shortness of air, no recurring pulmonary infections Cardiovascular/peripheral vascular: No chest pain, no palpitations, no edema, no shortness of breath Gastrointestinal: No new onset incontinence, normal bowel movements reported Genitourinary: No new onset incontinence Musculoskeletal: Low back pain Psychiatric: [Normal mood/affect] Neurological: [Denies weakness in extremities], [denies balance issues] Pain at rest (0-10 scale): 5 Objective Objective:: Physical Exam: General: Alert and oriented x3, no acute distress, pleasant and cooperative Lungs: Respirations even and unlabored, symmetrical chest expansion Eyes: PERRL Musculoskeletal: Flexion and extension of lumbar [spine] somewhat guarded secondary to pain Neurological: Speech clear, no gross sensory deficit Has patient had previous pain injection?: No Conservative treatment options previously tried: Prescription medications Length of treatment: Longer than 6 weeks Meds Home Medications and Allergies Home Medications Medication Instructions Recorded Confirmed Type cholecalciferol (vitamin D3) 125 5,000 iunits PO DAILY Osteoporosis 10/05/21 03/01/24 History mcg (5,000 unit) capsule omega 5-nsf-mnt-fish oil 100 1 cap PO DAILY SUPPLIMENT 10/19/21 03/01/24 History mg-160 mg-1,000 mg capsule (Fish Oil) lisinopril 20 mg tablet 20 mg PO DAILY bp 09/16/22 03/01/24 History biotin 5,000 mcg sublingual tablet 5,000 mcg sublingual DAILY 03/29/23 03/01/24 History SUPPLIMENT triamcinolone acetonide 0.5 % 1 applic topical TID #30 grams 05/11/23 03/01/24 Rx topical cream levomefolate 15 mg-algal oil 1 cap PO DAILY #30 caps 08/18/23 03/01/24 Rx 90.314 mg capsule triamterene 37.5 See Rx Instructions .Route 12/26/23 03/01/24 Rx mg-hydrochlorothiazide 25 mg tablet .COMPLEX #30 tabs omeprazole 40 mg capsule,delayed See Rx Instructions .Route 01/02/24 03/01/24 Rx release .COMPLEX #90 caps metoprolol succinate 100 mg See Rx Instructions .Route 01/12/24 03/01/24 Rx tablet,extended release 24 hr .COMPLEX #90 tabs baclofen 10 mg tablet See Rx Instructions .Route 01/25/24 03/01/24 Rx .COMPLEX #90 tabs gabapentin 300 mg capsule 300 mg PO HS #90 caps 01/25/24 03/01/24 Rx dextromethorphan IR 45 1 tab PO DAILY #30 ea 02/12/24 03/01/24 Rx mg-bupropion ER 105 mg biphasic tablet (Auvelity) potassium chloride 10 mEq See Rx Instructions .Route 02/28/24 03/01/24 Rx tablet,extended release .COMPLEX #30 tabs rosuvastatin 20 mg tablet See Rx Instructions .Route 02/28/24 03/01/24 Rx .COMPLEX #90 tabs nitrofurantoin 100 mg PO Q12H 10 days #20 caps 03/01/24 03/01/24 Rx monohydrate/macrocrystals 100 mg capsule (Macrobid) duloxetine 30 mg capsule,delayed 30 mg PO DAILY #30 caps 03/06/24 Rx release New Prescriptions to Start Prescriptions: Allergies Allergy/AdvReac Type Severity Reaction Status Date / Time niacin [NIACIN] Allergy Unknown Verified 03/01/24 14:29 Assessment and Plan *Assessment and plan (1) Degenerative joint disease of cervical spine: Status: Chronic Qualifiers: Spinal osteoarthritis complication: unspecified spinal osteoarthritis Qualified Code(s): M47.812 - Spondylosis without myelopathy or radiculopathy, cervical region Category: Medical Code(s): M47.812 - Spondylosis without myelopathy or radiculopathy, cervical region (2) Cervical postlaminectomy syndrome: Status: Chronic Category: Medical Code(s): M96.1 - Postlaminectomy syndrome, not elsewhere classified (3) Facet arthropathy: Status: Chronic Category: Medical Code(s): M47.819 - Spondylosis without myelopathy or radiculopathy, site unspecified (4) Low back pain: Status: Acute Qualifiers: Chronicity: chronic Back pain laterality: bilateral Sciatica presence: without sciatica Qualified Code(s): M54.50 - Low back pain, unspecified; G89.29 - Other chronic pain Category: Medical Code(s): M54.50 - Low back pain, unspecified Plan I will refill the patient's gabapentin and baclofen and provide a 90-day supply of this medication. Patient will return to clinic in 4 months for reevaluation of symptoms and plan of care. Patient has been instructed to contact the clinic with any concerns before the next appointment. Dr. Meza has reviewed this note and agrees with this plan of care. This note was dictated using voice recognition software and make contain errors or omissions.
[2024-03-18 13:29] VITALS: BP 136/75; PULSE 63; RESP 16; O2SAT 96; BMI 27.7
== END 2024-03-18 23:59 | disposition home or self-care (01) ==
PROVIDERS: PCP Family Medicine; Visit Provider Nurse Practitioner Family
DX: M47.812 Spondylosis without myelopathy or radiculopathy, cervical region (principal); M96.1 Postlaminectomy syndrome, not elsewhere classified; M54.50 Low back pain, unspecified; G89.29 Other chronic pain
CPT/HCPCS: 99212; G0463

== ENCOUNTER 2024-07-26 10:01 | Outpatient (POV) | payer MEDICARE, OTHER, SELFPAY ==
--- NOTE | 2024-07-26 10:55 | EXP.PAIN.SOA ---
[facility] Disclaimer: The information contained in this section may have been updated after the patient was seen, as this information can be updated by other users. Medical History IFG (impaired fasting glucose) MDD (major depressive disorder), recurrent, with melancholic features Radicular pain of left lower extremity Hyperthyroidism Vitamin D deficiency Hyperlipidemia Essential hypertension Bronchitis Hyponatremia Resume 10meg KCL daily Hyperthyroidism determined by thyroid function test Will need lab work at next visit Hyperthyroidism Depression Anxiety History of gastroesophageal reflux (GERD) Hyperlipidemia Hypertension Surgical History History of spinal surgery Family History Other Cancer Coronary artery disease Diabetes Social History Smoking Status: Former smoker alcohol intake: never substance use type: denies use current occupational status: retired Travel in the last 8 weeks: None household members: spouse housing: house number of children: 2 current occupation: [employer] current occupational exposures/hazards: No caffeine: Yes PM Subjective & Objective Subjective Subjective:: Patient is a pleasant 69-year-old female who presents today for 4-month follow-up and medication refill. Today she rates her pain a 5 out of 10. She denies any new trauma or injury. She does state that she has noticed a little bit more numbness into her left hand. Patient does state that she was tested for carpal tunnel in the past and that she is also had a wrist fracture in the past that may be playing a role. Patient does state that it does get better as the day goes on. She denies any other changes. She is currently managed with gabapentin 300 mg at bedtime and baclofen 10 mg at bedtime. She denies any side effects from this medication. Her Julian has been reviewed and is appropriate. Review of Systems: General: No recent weight changes, no fever, no sleep disturbances Respiratory: No cough, no shortness of air, no recurring pulmonary infections Cardiovascular/peripheral vascular: No chest pain, no palpitations, no edema, no shortness of breath Gastrointestinal: No new onset incontinence, normal bowel movements reported Genitourinary: No new onset incontinence Musculoskeletal: Right hand numbness tingling, low back pain Psychiatric: [Normal mood/affect] Neurological: [Denies weakness in extremities], [denies balance issues] Pain at rest (0-10 scale): 5 Objective Objective:: Physical Exam: General: Alert and oriented x3, no acute distress, pleasant and cooperative Lungs: Respirations even and unlabored, symmetrical chest expansion Eyes: PERRL Musculoskeletal: Flexion and extension of lumbar [spine] somewhat guarded secondary to pain, [antalgic gait noted] Neurological: Speech clear, no gross sensory deficit Has patient had previous pain injection?: No Conservative treatment options previously tried: Home exercise plan Length of treatment: Longer than 12 weeks Meds Home Medications and Allergies Home Medications ?Medication ?Instructions ?Recorded ?Confirmed ?Type cholecalciferol (vitamin D3) 125 5,000 iunits PO DAILY Osteoporosis 10/05/21 05/20/24 History mcg (5,000 unit) capsule omega 3-unz-lit-fish oil 100 1 cap PO DAILY SUPPLIMENT 10/19/21 05/20/24 History mg-160 mg-1,000 mg capsule (Fish Oil) lisinopril 20 mg tablet 20 mg PO DAILY bp 09/16/22 05/20/24 History biotin 5,000 mcg sublingual tablet 5,000 mcg sublingual DAILY 03/29/23 05/20/24 History SUPPLIMENT triamcinolone acetonide 0.5 % 1 applic topical TID #30 grams 05/11/23 05/20/24 Rx topical cream levomefolate 15 mg-algal oil 1 cap PO DAILY #30 caps 08/18/23 05/20/24 Rx 90.314 mg capsule omeprazole 40 mg capsule,delayed See Rx Instructions .Route 01/02/24 05/20/24 Rx release .COMPLEX #90 caps dextromethorphan IR 45 1 tab PO DAILY #30 ea 02/12/24 05/20/24 Rx mg-bupropion ER 105 mg biphasic tablet (Auvelity) baclofen 10 mg tablet See Rx Instructions .Route 03/18/24 05/20/24 Rx .COMPLEX #90 tabs gabapentin 300 mg capsule 300 mg PO HS #90 caps 03/18/24 05/20/24 Rx rosuvastatin 20 mg tablet See Rx Instructions .Route 05/22/24 Rx .COMPLEX #90 tabs duloxetine 30 mg capsule,delayed 30 mg PO DAILY #30 caps 06/11/24 Rx release potassium chloride 10 mEq See Rx Instructions .Route 06/24/24 Rx tablet,extended release .COMPLEX #30 tabs triamterene 37.5 See Rx Instructions .Route 06/24/24 Rx mg-hydrochlorothiazide 25 mg tablet .COMPLEX #30 tabs metoprolol succinate 100 mg See Rx Instructions .Route 07/08/24 Rx tablet,extended release 24 hr .COMPLEX #90 tabs New Prescriptions to Start Prescriptions: Allergies Allergy/AdvReac Type Severity Reaction Status Date / Time niacin (NIACIN) Allergy Unknown Verified 05/20/24 10:26 Assessment and Plan *Assessment and plan (1) Low back pain: Status: Acute Qualifiers: Chronicity: chronic Back pain laterality: bilateral Sciatica presence: without sciatica Qualified Code(s): M54.50 - Low back pain, unspecified; G89.29 - Other chronic pain Category: Medical Code(s): M54.50 - Low back pain, unspecified (2) Degenerative joint disease of cervical spine: Status: Acute Category: Medical Code(s): M47.812 - Spondylosis without myelopathy or radiculopathy, cervical region (3) Cervical spinal stenosis: Status: Acute Category: Medical Code(s): M48.02 - Spinal stenosis, cervical region (4) Numbness of left hand: Status: Acute Category: Medical Code(s): R20.0 - Anesthesia of skin Plan Patient was counseled that in future if her symptoms in her left hand or chronic neck pain that does radiate gets more extensive and really starts to bother her that we can look at doing some injection therapy. Patient does feel like currently it is still manageable. I will refill the patient's baclofen and gabapentin and provide a 3-month supply of this medication. Patient will return to clinic in 3 months for reevaluation of symptoms and plan of care. Patient has been instructed to contact the clinic with any concerns before the next appointment. Dr. Meza has reviewed this note and agrees with this plan of care. This note was dictated using voice recognition software and make contain errors or omissions. All injections are used with Lidocaine or Bupivacaine and Depo Medrol.
[2024-07-26 11:02] VITALS: BP 110/71; PULSE 62; RESP 16; O2SAT 94; BMI 27.4
== END 2024-07-26 23:59 | disposition home or self-care (01) ==
PROVIDERS: PCP Family Medicine; Visit Provider Nurse Practitioner Family
DX: M54.50 Low back pain, unspecified (principal); G89.29 Other chronic pain; M47.812 Spondylosis without myelopathy or radiculopathy, cervical region; M48.02 Spinal stenosis, cervical region; R20.0 Anesthesia of skin; Z87.891 Personal history of nicotine dependence; Z79.899 Other long term (current) drug therapy
CPT/HCPCS: 99212; G0463

== ENCOUNTER 2024-09-30 11:25 | Outpatient (CLI) | payer MEDICARE, OTHER, SELFPAY ==
[2024-09-30 18:02] LABS: Basophils # 0.1 K/mm3 (0-0.2); Basophils % 1.3 % (0.1-2.0); Eosinophils # 0.1 K/mm3 (0.0-0.4); Eosinophils % 2.3 % (0.1-12.0); Hematocrit 40.2 % (37.0-47.0); Hemoglobin 14.2 g/dL (12.2-16.2); Lymphocytes # 1.1 K/mm3 (0.7-4.5); Lymphocytes % 26.7 % (10-50); Mean Corpuscular HGB Conc 35.3 g/dL (31.8-35.4); Mean Corpuscular Hemoglobin 31.3 pg (27.0-31.2); Mean Corpuscular Volume 88.5 fl (81-99); Mean Platelet Volume 10.8 fl (7.4-10.4); Monocytes # 0.6 K/mm3 (0.1-1.0); Monocytes % 15.9 % (1.7-9.3); Neutrophils # 2.1 K/mm3 (1.8-7.8); Neutrophils % 53.5 % (37.0-80.0); Platelet Count 215 K/mm3 (142-424); Red Blood Count 4.54 M/mm3 (4.20-5.40); Red Cell Distribution Width 12.7 % (11.5-17.5)
[2024-09-30 18:38] LABS: Microalbumin/Creatinine Ratio 4.3
[2024-09-30 18:53] LABS: Creatinine,Urine Random 171 mg/dL (Not Estab.)
[2024-09-30 19:31] LABS: Albumin Level 4.3 g/dl (3.5-5.0); Chloride 90 mmol/L (98-107); Potassium 3.7 mmoL/L (3.5-5.1); Sodium 130 mmol/L (136-145)
[2024-09-30 19:33] LABS: Alanine Aminotransferase 22 U/L (12-78); Aspartate Amino Transferase 33 U/L (14-36); Blood Urea Nitrogen 14 mg/dl (7-17); Estimated Glomerular Filt Rate 55 ml/min (>60); GFR (African American) 66 ML/MIN (>60)
[2024-09-30 19:34] LABS: Alkaline Phosphatase 69 U/L (38-126); Anion Gap 12.7 mEq/L (5-15); Bilirubin,Total 0.4 mg/dl (0.2-1.3); Calcium 9.2 mg/dl (8.4-10.2); Carbon Dioxide 31 mmol/L (22.0-30.0); Chol/HDL Ratio 1.8 (1-3.5); Cholesterol 176 mg/dl (140-200); Globulin 2.2 g/dL (1.3-3.2); Glucose 112 mg/dl (74-100); HDL Cholesterol 98 mg/dl (40-60); Total Protein,Serum 6.5 g/dl (6.3-8.2); Triglycerides 62 mg/dl (30-150); VLDL Cholesterol 12 mg/dL (0-40)
[2024-09-30 20:20] LABS: Thyroid Stimulating Hormone 1.13 uIU/mL (0.465-4.68)
[2024-09-30 20:39] LABS: Vitamin B12 693 pg/mL (239-931)
[2024-09-30 23:55] LABS: Hemoglobin A1C 5.9 % (4.0-6.0)
== END 2024-09-30 23:59 | disposition home or self-care (01) ==
LOC: LAB.DROPOF 10-01 12:07
PROVIDERS: PCP Nurse Practitioner; Visit Provider Nurse Practitioner
DX: I10 Essential (primary) hypertension (principal); E78.5 Hyperlipidemia, unspecified; R73.01 Impaired fasting glucose
CPT/HCPCS: 80053; 80061; 82043; 82570; 82607; 83036; 84443; 85025

== ENCOUNTER 2024-11-04 14:45 | Outpatient (POV) | payer MEDICARE, OTHER, SELFPAY ==
[2024-11-04 15:03] VITALS: BP 126/63; PULSE 68; RESP 18; O2SAT 98; BMI 27.1
--- NOTE | 2024-11-04 15:36 | EXP.PAIN.SOA ---
[facility] Disclaimer: The information contained in this section may have been updated after the patient was seen, as this information can be updated by other users. Medical History (Updated 09/30/24 @ 11:04 by Vanessa Coronado APRN) Screening for malignant neoplasm of colon declined (~09/30/24) Screening mammography declined (~09/30/24) IFG (impaired fasting glucose) MDD (major depressive disorder), recurrent, with melancholic features Radicular pain of left lower extremity Hyperthyroidism Vitamin D deficiency Hyperlipidemia Essential hypertension Bronchitis Hyponatremia Hyperthyroidism determined by thyroid function test Hyperthyroidism Depression Anxiety History of gastroesophageal reflux (GERD) Hyperlipidemia Hypertension Surgical History History of spinal surgery Family History Other Cancer Coronary artery disease Diabetes Social History (Updated 09/30/24 @ 10:28 by Shy Gerard MA) Smoking Status: Former smoker alcohol intake: never substance use type: denies use current occupational status: other Travel in the last 8 weeks: None household members: spouse housing: house number of children: 2 current occupation: [employer] current occupational exposures/hazards: No caffeine: Yes PM Subjective & Objective Subjective Subjective:: Patient is a pleasant 69-year-old female who presents today for 3-month medication refill. Today she rates her pain a 5 out of 10. She denies any new trauma or injury from her last visit. She is currently managed with gabapentin 300 mg at bedtime and baclofen 10 mg at bedtime. She is denying any side effects from this medication however is asking if her baclofen can be adjusted. Her Julian has been reviewed and is appropriate. Review of Systems: General: No recent weight changes, no fever, no sleep disturbances Respiratory: No cough, no shortness of air, no recurring pulmonary infections Cardiovascular/peripheral vascular: No chest pain, no palpitations, no edema, no shortness of breath Gastrointestinal: No new onset incontinence, normal bowel movements reported Genitourinary: No new onset incontinence Musculoskeletal: Left hand numbness tingling Psychiatric: [Normal mood/affect] Neurological: [Denies weakness in extremities], [denies balance issues] Pain at rest (0-10 scale): 5 Objective Objective:: Physical Exam: General: Alert and oriented x3, no acute distress, pleasant and cooperative Lungs: Respirations even and unlabored, symmetrical chest expansion Eyes: PERRL Musculoskeletal: Flexion and extension of cervical [spine] somewhat guarded secondary to pain, [antalgic gait noted] Neurological: Speech clear, no gross sensory deficit Has patient had previous pain injection?: No Conservative treatment options previously tried: Home exercise plan Length of treatment: Longer than 12-week Meds Home Medications and Allergies Home Medications ?Medication ?Instructions ?Recorded ?Confirmed ?Type cholecalciferol (vitamin D3) 125 5,000 iunits PO DAILY Osteoporosis 10/05/21 11/04/24 History mcg (5,000 unit) capsule lisinopril 20 mg tablet 20 mg PO DAILY bp 09/16/22 11/04/24 History biotin 5,000 mcg sublingual tablet 5,000 mcg sublingual DAILY 03/29/23 11/04/24 History SUPPLIMENT levomefolate 15 mg-algal oil 1 cap PO DAILY #30 caps 08/18/23 11/04/24 Rx 90.314 mg capsule dextromethorphan IR 45 1 tab PO DAILY #30 ea 02/12/24 11/04/24 Rx mg-bupropion ER 105 mg biphasic tablet (Auvelity) duloxetine 30 mg capsule,delayed 30 mg PO DAILY #30 caps 06/11/24 11/04/24 Rx release triamterene 37.5 See Rx Instructions .Route 06/24/24 11/04/24 Rx mg-hydrochlorothiazide 25 mg tablet .COMPLEX #30 tabs metoprolol succinate 100 mg See Rx Instructions .Route 07/08/24 11/04/24 Rx tablet,extended release 24 hr .COMPLEX #90 tabs gabapentin 300 mg capsule 300 mg PO HS #90 caps 07/26/24 11/04/24 Rx baclofen 10 mg tablet See Rx Instructions .Route 08/23/24 11/04/24 Rx .COMPLEX #90 tabs rosuvastatin 20 mg tablet See Rx Instructions .Route 08/24/24 11/04/24 Rx .COMPLEX #90 tabs omeprazole 40 mg capsule,delayed See Rx Instructions .Route 09/30/24 11/04/24 Rx release .COMPLEX #90 caps potassium chloride 10 mEq 10 meq PO DAILY #90 tabs 09/30/24 11/04/24 Rx tablet,extended release New Prescriptions to Start Prescriptions: Allergies Allergy/AdvReac Type Severity Reaction Status Date / Time niacin (NIACIN) Allergy Unknown Verified 09/30/24 10:27 Assessment and Plan *Assessment and plan (1) Numbness of left hand: Status: Acute Category: Medical Code(s): R20.0 - Anesthesia of skin (2) Numbness of right hand: Status: Inactive Category: Medical Code(s): R20.0 - Anesthesia of skin (3) Low back pain: Status: Acute Qualifiers: Chronicity: chronic Back pain laterality: bilateral Sciatica presence: without sciatica Qualified Code(s): M54.50 - Low back pain, unspecified; G89.29 - Other chronic pain Category: Medical Code(s): M54.50 - Low back pain, unspecified Plan I will refill her gabapentin and baclofen and changed the baclofen to twice a day. Patient will be given a 3-month supply of both of these medications. She will return to clinic in 3 months. Patient has been instructed to contact the clinic with any concerns before the next appointment. Dr. Meza has reviewed this note and agrees with this plan of care. This note was dictated using voice recognition software and make contain errors or omissions. All injections are used with Lidocaine, Bupivacaine and Depo Medrol. Occasionally urine drug screen is needed to verify patient's compliance with our office pain contract. This is ordered based off specific treatments related to chronic pain with the potential to abuse certain medications.
== END 2024-11-04 23:59 | disposition home or self-care (01) ==
PROVIDERS: PCP Nurse Practitioner; Visit Provider Nurse Practitioner Family
DX: R20.0 Anesthesia of skin (principal); M54.50 Low back pain, unspecified; G89.29 Other chronic pain; Z87.891 Personal history of nicotine dependence
CPT/HCPCS: 99212; G0463

== ENCOUNTER 2024-12-11 08:22 | Outpatient (CLI) | payer MEDICARE, OTHER, SELFPAY ==
[2024-12-11 19:39] LABS: Basophils % 0.7 % (0.1-2.0); Eosinophils # 0.2 K/mm3 (0.0-0.4); Eosinophils % 2.5 % (0.1-12.0); Hematocrit 37.8 % (37.0-47.0); Hemoglobin 13.4 g/dL (12.2-16.2); Lymphocytes # 1.8 K/mm3 (0.7-4.5); Lymphocytes % 31.1 % (10-50); Mean Corpuscular HGB Conc 35.4 g/dL (31.8-35.4); Mean Corpuscular Volume 90.2 fl (81-99); Monocytes # 0.7 K/mm3 (0.1-1.0); Monocytes % 12.1 % (1.7-9.3); Neutrophils # 3.2 K/mm3 (1.8-7.8); Neutrophils % 53.4 % (37.0-80.0); Nucleated Red Blood Cells # 0 10^3/uL; Nucleated Red Blood Cells % 0 %; Platelet Count 249 K/mm3 (142-424); Red Blood Count 4.19 M/mm3 (4.20-5.40); Red Cell Distribution Width 13.9 % (11.5-17.5); White Blood Count 5.9 K/mm3 (4.8-10.8)
[2024-12-11 20:04] LABS: Alanine Aminotransferase 18 U/L (12-78); Alkaline Phosphatase 62 U/L (38-126); Anion Gap 11.9 mEq/L (5-15); Aspartate Amino Transferase 27 U/L (14-36); Bilirubin,Total 0.5 mg/dl (0.2-1.3); Blood Urea Nitrogen 10 mg/dl (7-17); Calcium 8.9 mg/dl (8.4-10.2); Carbon Dioxide 31 mmol/L (22.0-30.0); Chloride 91 mmol/L (98-107); Estimated Glomerular Filt Rate 49 ml/min (>60); GFR (African American) 59 ML/MIN (>60); Glucose 93 mg/dl (74-100); Potassium 3.9 mmoL/L (3.5-5.1); Sodium 130 mmol/L (136-145)
[2024-12-11 20:33] LABS: Albumin/Globulin Ratio 1.6 (1.1-1.8); Globulin 2.5 g/dL (1.3-3.2); Total Protein,Serum 6.5 g/dl (6.3-8.2)
== END 2024-12-11 23:59 | disposition home or self-care (01) ==
LOC: LAB.DROPOF 12-13 08:23
PROVIDERS: PCP Nurse Practitioner; Visit Provider Nurse Practitioner
DX: R19.7 Diarrhea, unspecified (principal)
CPT/HCPCS: 80053; 85025

== ENCOUNTER 2024-12-12 20:53 | Outpatient (CLI) | payer MEDICARE, OTHER, SELFPAY ==
[2024-12-12 21:06] LABS: Microscopic, Urine URINE MICROSCOPIC (MICROSCOPIC)
[2024-12-12 22:46] LABS: Appearance,Urine CLEAR (Clear); Bilirubin,Urine Negative (Negative); Blood, Urine Negative (Negative); Color,Urine YELLOW (Yellow); Glucose,Urine (UA) Negative (Negative); Ketones,Urine Negative (Negative); Leukocyte Esterase,Urine TRACE (Negative); Nitrate,Urine Negative (Negative); Protein,Urine Negative (Negative); Urobilinogen,Urine 0.2 EU/dl (0.2)
[2024-12-12 23:06] LABS: Bacteria,Urine 3+ /lpf; WBC,Urine Occasional #/hpf (0-3)
== END 2024-12-12 23:59 | disposition home or self-care (01) ==
LOC: LAB.DROPOF 20:54
PROVIDERS: PCP Nurse Practitioner; Visit Provider Nurse Practitioner
DX: R10.31 Right lower quadrant pain (principal); R19.7 Diarrhea, unspecified; B96.20 Unspecified Escherichia coli [E. coli] as the cause of diseases classified elsewhere
CPT/HCPCS: 81001; 87086; 87088; 87186; 87506

== ENCOUNTER 2024-12-13 16:00 | Outpatient (CLI) | payer MEDICARE, OTHER, SELFPAY ==
[2024-12-13 18:28] LABS: Adenovirus F 40/41, stool Not Detected (NotDetected); Astrovirus Not Detected (NotDetected); Campylobacter Not Detected (NotDetected); Clostridium Difficile A/B, PCR Not Detected (NotDetected); Cryptosporidium Not Detected (NotDetected); Cyclospora Cayetanesis Not Detected (NotDetected); Entamoeba histolytica Not Detected (NotDetected); Enteroaggregative E coli Not Detected (NotDetected); Enteropathogenic E coli Not Detected (NotDetected); Enterotoxigenic E coli Not Detected (NotDetected); Giardia lamblia Not Detected (NotDetected); Norovirus Not Detected (NotDetected); Plesimonas Shigalloides, PCR Not Detected (NotDetected); Rotavirus A Not Detected (NotDetected); Salmonella, PCR Not Detected (NotDetected); Sapovirus Not Detected (NotDetected); Shiga-like toxin E coli Not Detected (NotDetected); Shigella Enterovasive E coli Not Detected (NotDetected); Vibrio Cholerae Not Detected (NotDetected); Vibrio, PCR Not Detected (NotDetected); Yersinia Entercolitica, PCR Not Detected (NotDetected)
--- OUTSIDE RECORDS SUMMARY | 2024-12-18 09:29 | XMS_ITS | Data Portability ---
Author Organization [facility] [place] [facility] Address [address] [place] [address] Care Team Providers Care Sound Designer Name Role Phone Blue FLOOD Primary Care Provider TERA MEZA Referring Provider [phone] Blue FLOOD Referring Provider [phone] Assessment Encounter Date Assessment Date Assessment LastModified by Organization Details LastModified Time 09/08/2022 09/08/2022 Mrs. Richmond is a 67-year-old female with primarily neck pain. Her MRI of the cervical spine report is rather benign. She denies cervical radiculopathy and I do not think there are any clear surgical options here. I will get some lateral flexion-extensio n as well as some AP/odontoid cervical x-rays to rule out any overt instability. She is welcome to bring the MRI of the cervical spine by my office so I can review them personally. She will continue to see Dr. Meza and I will have her discussed the option of injections for occipital neuralgia. We will call her with the results of the dynamic cervical x-rays. [email or web address] Not available 09/08/2022 11:56:45 Plan of Treatment Reminders Order Date Submit Date Provider Last Modified By Organization Details Last Modified Time Details Appointments None recorded . Lab TSH, serum or plasma 023 03/15/20 23 rosa 11 [facility], [address] [place] [address], [id number], 3 09:09:39 T4, free, serum 023 03/15/[address] [facility], [address] [place] [address], [phone], 3 09:09:40 T3, free, serum or plasma 023 03/15/[address] [facility], [address] [place] [address], [id number], 3 09:09:40 tsi (thyroid -stimula ting immunogl obulin), serum 023 03/15/[address] [facility], [address] [place] [address], [id number], 3 09:09:40 Referral None recorded . Procedures None recorded . Surgeries None recorded . Imaging None recorded . Medication Orders None recorded . Patient TargetsNo targets recorded. Patient InstructionsNo instructions recorded. Reason for Referral None Reported. Results Created Date Observation Date Name Description Value Unit Range Abnormal Flag Note LastModifiedBy Organization Detail LastModifiedTime 09/08/19 23 09/08/2022 XR, cervi camilo spine , 4 or [address] [address] Ashwini abreu Name: BONNIE abreu : 954 Ashwini abreu 5 Orderi ng Provid er: BISHNU Alavrez MOHSEN EXAM DATE: 2022 EXAM: XR CERVIC AL SPINE AP/LAT /FLEX/ EXT CLINIC AL INFORM ATION: Neck pain. IMAGES PROVID ED: Latera l views of the cervic al spine in flexio n and extens ion. COMPAR NATIVIDAD: None. FINDIN GS AND IMPRES CASSI: C5-C6 spinal fusion is noted. Surgic al hardwa re is satisf actori ly placed . No abnorm al moveme nt is seen in flexio n or extens ion. Degene rative change s are seen at other levels . No instab ility is seen. Interp reted By: Jd Garcia MD Electr onical ly Signed By: Jd Garcia MD on 1/5/20 23 2:[address] Radiology [facility] [address] [place], [address], 10/05/2022 10:10:08 09/09/19 23 07/05/2022 MRI, cervi camilo spine , w/o contr ast No observ ation record ed. BARCODE Not Available 2022 12:51:34 09/09/19 23 07/05/2022 MRI, cervi camilo spine , w/o contr ast No observ ation record ed. BARCODE Not Available 2022 12:51:34 Result Notes None recorded. Procedures Surgical History Date Name Laterality Status Provider Name and Address Organization Details Recorded Time Cervical Spine Surgery completed Danielle Chavarria [facility] 09/08/2022 10:59:56 Imaging Results Imaging Date Name Status LastModified by Organiz ation Details LastModified Time 09/08/2022 XR, cervical spine, 4 or 5 view completed [address] Radiology [facility] [address] [place], [address], 10/05/2022 10:10:08 07/05/2022 MRI, cervical spine, w/o contrast completed [facility] Information not available 09/09/2022 12:51:34 07/05/2022 MRI, cervical spine, w/o contrast completed [facility] Information not available 09/09/2022 12:51:34 Procedure Notes None recorded. Medical Equipment None Reported. Allergies No known drug allergies Medications Name Sig Start Date Stop Date Status Note LastModified by Organization Details LastModified Time quetiapin e 25 mg tablet TAKE 1 TABLET BY MOUTH 3 TIMES A DAY 09/08 completed Not Available Not Available Not Available promethaz ine-DM 6.25 mg-15 mg/5 mL oral syrup TAKE 5 ML ORALLY EVERY 4-6 HOURS NEEDED FOR COUGH 09/08 completed Not Available Not Available Not Available potassium chloride ER 10 mEq capsule,e xtended release TAKE 1 CAPSULE ORALLY ONCE DAILY 09/08 completed Not Available Not Available Not Available gabapenti n 600 mg tablet TAKE 1 TABLET BY MOUTH FOUR TIMES A DAY FOR NERVE PAIN active Not Available Not Available No t Available donepezil 5 mg tablet TAKE 1 TABLET BY MOUTH AT BEDTIME active Not Available Not Available No t Available triamtere ne 50 mg-hydroc hlorothia zide 25 mg capsule Daily 09/08 completed Frequenc y: daily;Me dication Descript ion: triamter kayley-hydr ochlorot hiazide; Dosage:1 ; Route:or al; refills: 0 Not Available Not Available Not Available pravastat in 40 mg tablet Bedtime 09/08 completed Frequenc y: hs;Medic ation Descript ion: pravasta tin; Dosage:1 ; Route:or al; refills: 0 Not Available Not Available Not Available benzonata te 200 mg capsule TAKE 1 CAPSULE ORALLY THREE TIMES A DAY NEEDED FOR COUGH 09/08 completed Not Available Not Available Not Available lisinopri l 20 mg tablet Take 1 tablet every day by oral route. active Not Available Not Available No t Available metoprolo l succinate ER 100 mg tablet,ex tended release 24 hr TAKE 1 TABLET BY MOUTH NIGHTLY AT BEDTIME FOR HYPERTEN CASSI active Not Available Not Available No t Available potassium chloride ER 10 mEq tablet,ex tended release TAKE 1 TABLET ORALLY DAILY FOR SUPPLEME NT active Not Available Not Available No t Available omeprazol e 40 mg capsule,d elayed release TAKE 1 CAPSULE BY MOUTH EVERY DAY active Not Available Not Available No t Available baclofen 10 mg tablet TAKE 1 TABLET BY MOUTH EVERY DAY AT BEDTIME FOR MUSCLE RELAXER active Not Available Not Available No t Available biotin 10,000 mcg capsule Take 42044 capsules every day by oral route at bedtime. active Not Available Not Available No t Available triamtere ne 37.5 mg-hydroc hlorothia zide 25 mg tablet TAKE 1 TABLET BY MOUTH EVERY DAY FOR BLOOD PRESSURE active Not Available Not Available No t Available omeprazol e 20 mg capsule,d elayed release Daily 09/08 completed Frequenc y: daily;Me dication Descript ion: omeprazo le; Dosage:1 ; Route:or al; refills: 0 Not Available Not Available Not Available Sinemet 25 mg-100 mg tablet Every four to six hours 09/08 completed Duration : 30 days;Ins truction s: begin 1 daily x 3d, then 1 bid x 3d, the 1 tid and continue x 2 weeks; if ineffect meaghan taper off over 1 week;;Fr equency: q4-q6h;A lt Frequenc y: as direct.; Medicati on Descript ion: carbidop a-levodo pa; Dosage:1 ; Route:or al; refills: 6; Quantity :90 tablet Not Available Not Available Not Available cefuroxim e axetil 500 mg tablet TAKE ONE TABLET BY MOUTH EVERY 12 HOURS FOR 10 DAYS 09/08 completed Not Available Not Available Not Available estradiol 0.01% (0.1 mg/gram) vaginal cream INSERT ONE GRAM VAGINALL Y EVERY NIGHT AT BEDTIME FOR 2 WEEKS THEN REDUCE TO TWICE A WEEK active Not Available Not Available No t Available methylpre dnisolone 4 mg tablets in a dose pack TAKE 6 TABLETS ON DAY 1 DIRECTED ON PACKAGE AND DECREASE BY 1 TAB EACH DAY FOR A TOTAL OF 6 DAYS active Not Available Not Available No t Available cefdinir 300 mg capsule TAKE 1 CAPSULE BY MOUTH TWICE A DAY active Not Available Not Available No t Available sulindac 200 mg tablet TAKE 1 TABLET BY MOUTH TWICE DAILY 09/08 completed Not Available Not Available Not Available Ventolin HFA 90 mcg/actua tion aerosol inhaler INHALE 2 PUFFS EVERY 4-6 HOURS NEEDED FOR SHORTNES S OF BREATH OR WHEEZING active Not Available Not Available No t Available esomepraz ole magnesium 20 mg capsule,d elayed release TAKE 1 CAPSULE ORALLY ONCE DAILY active Not Available Not Available No t Available Zetia 10 mg tablet As Directed 09/08 completed Frequenc y: as direct.; Medicati on Descript ion: ezetimib e; Dosage:1 ; Route:or al; refills: 0 Not Available Not Available Not Available rosuvasta tin 20 mg tablet TAKE 1 TABLET ORALLY ONCE DAILY active Not Available Not Available No t Available nitrofura ntoin monohydra te/macroc rystals 100 mg capsule TAKE 1 CAPSULE BY MOUTH TWICE DAILY 09/08 completed Not Available Not Available Not Available duloxetin e 30 mg capsule,d elayed release TAKE 1 CAPSULE BY MOUTH EVERY DAY active Not Available Not Available No t Available duloxetin e 60 mg capsule,d elayed release TAKE 1 CAPSULE BY MOUTH EVERY DAY active Not Available Not Available No t Available gabapenti n 300 mg tablet Two times a day active Frequenc y: bid;Medi cation Descript ion: gabapent in; Dosage:1 ; Route:or al; refills: 0 Not Available Not Available Not Available Calcium-V itamin D Daily active Frequenc y: daily;Me dication Descript ion: calcium- vitamin D; Dosage:2 ; Route:or al; refills: 0 Not Available Not Available Not Available Fish Oil active Not Available Not Avai lable Not Available venlafaxi ne Daily 09/08 completed Frequenc y: daily;Me dication Descript ion: venlafax ine; Dosage:1 ; Route:or al; refills: 0 Not Available Not Available Not Available ibuprofen Every six hours active Frequenc y: q6h;Medi cation Descript ion: ibuprofe n; Dosage:1 ; refills: 0; Quantity :60 Not Available Not Available Not Available aripipraz ole 2 mg tablet TAKE 1 TABLET BY MOUTH EVERY DAY active Not Available Not Available No t Available tramadol ER 100 mg tablet,ex tended release 24 hr TAKE 1 TABLET BY MOUTH EVERY DAY 09/08 completed Not Available Not Available Not Available Xyzal 5 mg tablet Every night at bedtime 09/08 completed Frequenc y: qhs;Medi cation Descript ion: levoceti rizine; Dosage:1 ; Route:or al; refills: 0 Not Available Not Available Not Available Myrbetriq 25 mg tablet,ex tended release TAKE 1 TABLET BY MOUTH ONCE A DAY active Not Available Not Available No t Available Mucus DM Max ER 60 mg-1,200 mg tablet,ex tended release TAKE 1 TABLET BY MOUTH EVERY 12 HOURS active Not Available Not Available No t Available Vitals Date Recorded Body height Body mass index (BMI) Body weight Systolic blood pressure Diastolic blood pressure Provider Name and Address Organization Details Last Updated DateTime 09/08/2022 167.64 cm 30.7 kg/m2 16341.55 g 132 mm[Hg] 82 mm[Hg] Danielle Chavarria [facility] 3 11:04:20 Date Recorded Body height Body mass index (BMI) Body weight Heart rate Systolic blood pressure Diastolic blood pressure Provider Name and Address Organization Details Last Updated DateTime 3 167.64 cm 32 kg/m2 11111.2 9 g 67 /min 115 mm[Hg] 74 mm[Hg] Augusto Holcomb [facility] 14:50:54 Social History None recorded. Functional Status None recorded. Mental Status None recorded. Family History Relationship Description Onset Age of this Age Resolved Age Notes LastModified by Organization Details LastModified Time Unspecified Relation Malignant neoplastic disease [email or web address] Not available 09/08 10:59:29 Unspecified Relation Diabetes mellitus [email or web address] Not available 09/08 10:59:33 Unspecified Relation Hypertensive disorder [email or web address] Not available 09/08 10:59:38 Medical History Condition Response Arthritis Y Hypertension Y High Cholesterol Y Gynecological HistoryNo gynecological history recorded. Obstetrics History GPAL:G 0 P 0 0 0 0 Past Encounters Encounter ID Performer Location Encounter Start Date Encounter Closed Date Diagnosis/Indication Diagnosis SNOMED-CT Code Diagnosis ICD10 Code Diagnosis Note [id number] TRACEY CONNOLLY MD [facility] [address] [place] [address] 09/08/2022 10:34:49 09/09/2022 16:32:58 Chronic neck pain 1005797500 107 M54.2 [id number] WINNIE FISH, DERRICK OPERATOR [facility] [address] [place] [address] 03/15/2023 13:19:49 03/15/2023 15:33:48 Thyroid function tests abnormal 588956807 R94.6 Stop taking Biotinrech ilia TFTs in 5 days after stopping Biotinif TFTs come back WNL just f/u yearly with PCPonce you have your labs done you can resume biotin but only at 5000units a day and always stop taking 3 days prior to having TFTs Health Concerns Section Related Observation LastModified by Organization Detai ls LastModified Time None Recorded Concern Status LastModified by Organization Details LastModified Time None Recorded Advance Directives Directive None Recorded Payers Encounter Date Sequence Insurance Name Policy Number Policy Schroeder Covered Member ID Schroeder Member ID Guarantor Name 09/08/2022 1 [place] [employer] [id number] Bonnie Kitchen 09/08/2022 2 [employer] (MEDICARE SUPPLEMENT) [employer] [id number] Bonnie Kitchen 03/15/2023 1 [place] Bonnie Kitchen [id number] Bonnie Kitchen 03/15/[address] [facility] [employer] (MEDICARE SUPPLEMENT) Bonnie Kitchen [id number] Bonnie Kitchen Notes Date Note Type Note Provider Name and Address Organization Details Recorded Time 09/08/2022 text/html Mrs. Kitchen is a 67-year-old female that complains of primary cervical pain with some radiation into the posterior head, left worse than right. She denies any radiation to her scapula, shoulder or arms. She has a history of chronic migraines which resolved status post a cervical ablation. She has a history of some cervical radiculopathy which resolved after a C5-6 ACDF performed at [facility] in 2009. In 2018 she underwent a posterior cervical decompression at [facility] without improvement. She presents today with an MRI report, but no imaging, from a cervical spine MRI performed at [facility] on July 15, 2022. She has seen Dr. Meza for interventional pain management. She is not sure that she has undergone any injections for occipital neuralgia. TRACEY CONNOLLY MD [address] [place], [address], [facility] 09/08/2022 11:57:14 03/15/2023 text/html Ms. Kitchen is a 68 year old she has a medical history of HTN, HLD and depression. She has been referred to our office for evaluation of abnormal thyroid function tests by Dr. Flood.TSH <0.02 on 02/08/23denies weight gain, constipation, dry skin, fatigueshe does take 10,000-20,000mg of Biotin every day . WINNIE FISH, DERRICK OPERATOR [address] [place], [address], [facility] 03/16/2023 16:21:12 OBGyn Episode No OBEpisode recorded.
== END 2024-12-13 23:59 | disposition home or self-care (01) ==
LOC: LAB.DROPOF 12-18 09:27
PROVIDERS: PCP Nurse Practitioner; Visit Provider Nurse Practitioner
DX: R19.7 Diarrhea, unspecified (principal)
CPT/HCPCS: 87506

== ENCOUNTER 2025-02-03 13:28 | Outpatient (POV) | payer MEDICARE, OTHER, SELFPAY ==
--- OUTSIDE RECORDS SUMMARY | 2025-02-03 13:34 | XMS_ITS | Data Portability ---
Author Organization [facility] CLOS[place] Address [address] [place] [address] Care Team Providers Care Traffic Expert Name Role Phone Blue FLOOD Primary Care Provider TERA MEZA Referring Provider [phone] Blue FLOOD Referring Provider Assessment Encounter Date Assessment Date Assessment LastModified [...] or plasma 023 03/15/20 23 rosa 11 [facility], [address] [place] [address], [phone], 3 09:09:39 T4, free, serum 023 03/15/[address] [facility], [address] [place] [address], [phone], 3 09:09:40 T3, free, serum or plasma 023 03/15/[address] [facility], [address] [place] [address], [phone], 3 09:09:40 tsi (thyroid -stimula ting immunogl obulin), serum 023 03/15/[address] [facility], [address] [place] [address], [phone], 3 09:09:40 Referral None recorded . Procedures [...] camilo spine , 4 or [address] [address] Ashwini abreu Name: BONNIE abreu : 954 Ashwini abreu 5 Orderi ng Provid er: BISHNU Alvarez MOHSEN EXAM DATE: 2022 EXAM: XR CERVIC [...] Garcia MD on 1/5/20 23 2:07 PM [email or web address] [facility] [address] [facility], [place], [phone], 10/05/2022 10:10:08 09/09/1907/05/2022 MRI, cervi camilo spine , w/o contr [...] Time Cervical Spine Surgery completed Danielle Chavarria [facility] 09/08/2022 10:59:56 Imaging Results None recorded. Procedure Notes None recorded. Medical Equipment None [...] t Available biotin 10,000 [place] [address] capsules every day by oral route at [...] Updated DateTime 09/08/2022 167.64 cm 30.7 kg/m2 78191.55 g 132 mm[Hg] 82 mm[Hg] [facility] 11:04:20 Date Recorded Body height Body mass index (BMI) Body weight Heart rate Systolic blood pressure Diastolic blood pressure Provider Name and Address Organization Details Last Updated DateTime 3 167.64 cm 32 kg/m2 19686.2 9 g 67 /min 115 mm[Hg] 74 mm[Hg] Augusto Holcomb [facility] 3 14:50:54 Social History None recorded. Functional Status [...] SNOMED-CT Code Diagnosis ICD10 Code Diagnosis Note [id number] TRACEY CONNOLLY MD NEUROSURG HILTONMargaret CRUZ [facility] [address] [place] [address] 09/08/2022 10:34:49 09/09/2022 16:32:58 Chronic neck pain [id number] 107 M54.2 [id number] WINNIEAgueda FISH, [employer] ST[employer]ER [facility] [address] [place] [address] 03/15/2023 13:19:49 03/15/2023 15:33:48 Thyroid function tests abnormal [id number] R94.6 Stop taking Biotinrech ilia TFTs in [...] Recorded Advance Directives Directive None Recorded Payers Insurance Date Sequence Insurance Name Policy Number Policy Schroeder Covered Member ID Schroeder Member ID Guarantor Name 03/12/2023 1 MEDICARE-ND (MEDICARE) Bonnie Kitchen [id number] [facility] 02/14/2023 2 [employer] (MEDICARE SUPPLEMENT) [facility] [id number] [facility] Notes Date Note Type Note Provider Name [...] resolved after a C5-6 ACDF performed at [facility] in 2009. In 2018 she underwent a posterior cervical decompression at [facility] without improvement. She presents today with an MRI report, but no imaging, from a cervical spine MRI performed at [facility] on July 15, 2022. She has seen Dr. Meza for interventional pain management. She is not sure that she has undergone any injections for occipital neuralgia. TRACEY CONNOLLY MD [address] [place], [address], [facility] 09/08/2022 11:57:14 03/15/2023 text/html Ms. Kitchen is a 68 year old she has a medical history of HTN, HLD and depression. She has been referred to our office for evaluation of abnormal thyroid function tests by Dr. Flood.TSH <0.02 on 02/08/23denies weight gain, constipation, dry skin, fatigueshe does take 10,000-20,000mg of Biotin every day . WINNIE FISH, SH[employer]ER [address] [place], [address], [facility] 03/16/2023 16:21:12 OBGyn Episode No OBEpisode recorded.
--- NOTE | 2025-02-03 13:55 | EXP.PAIN.SOA ---
[facility] Disclaimer: The information contained in this section may have been updated after the patient was seen, as this information can be updated by other users. Medical History Diarrhea Screening for malignant neoplasm of colon declined (~09/30/24) Screening mammography declined (~09/30/24) IFG (impaired fasting glucose) MDD (major depressive disorder), recurrent, with melancholic features Radicular pain of left lower extremity Hyperthyroidism Vitamin D deficiency Hyperlipidemia Essential hypertension Bronchitis Hyponatremia Resume 10meg KCL daily Hyperthyroidism determined by thyroid function test Will need lab work at next visit Hyperthyroidism Depression Anxiety History of gastroesophageal reflux (GERD) Hyperlipidemia Hypertension Surgical History History of spinal surgery Family History Other Cancer Coronary artery disease Diabetes Social History Smoking Status: Former smoker alcohol intake: never substance use type: denies use current occupational status: other Travel in the last 8 weeks?: None household members: spouse housing: house number of children: 2 current occupation: [employer] current occupational exposures/hazards: No caffeine: Yes Have you lived/traveled outside [place] in past 30 days?: No Contact w/someone who lives/traveled outside US past 30 days?: No Exposure to someone with infectious disease in past 14 days?: No Do you have a fever (greater than 100.4 F or 38 C)?: No Have you tested positive for COVID-19?: No Exposed to someone with COVID-19 in past 14 days?: No Do you have a sore throat?: No Do you have a cough?: No Do you have any weakness?: No Do you have any diarrhea?: No Are you experiencing any unusual bleeding?: No Do you have any muscle aches/pain?: No Do you have any abdominal pain?: No Are you experiencing loss of taste or smell?: No PM Subjective & Objective Subjective Subjective:: Patient is a pleasant 70-year-old female who presents today for medication refill and follow-up. Today she rates her pain a 5 out of 10. She denies any new trauma or injury. Patient is currently managed with gabapentin 300 mg at bedtime and baclofen 10 mg twice a day. She denies any side effects or changes to her pharmacy. Her Julian has been reviewed and is appropriate. Review of Systems: General: No recent weight changes, no fever, no sleep disturbances Respiratory: No cough, no shortness of air, no recurring pulmonary infections Cardiovascular/peripheral vascular: No chest pain, no palpitations, no edema, no shortness of breath Gastrointestinal: No new onset incontinence, normal bowel movements reported Genitourinary: No new onset incontinence Musculoskeletal: Neck pain Psychiatric: [Normal mood/affect] Neurological: [Denies weakness in extremities], [denies balance issues] Pain at rest (0-10 scale): 5 Objective Objective:: Physical Exam: General: Alert and oriented x3, no acute distress, pleasant and cooperative Lungs: Respirations even and unlabored, symmetrical chest expansion Eyes: PERRL Musculoskeletal: Flexion and extension of cervical [spine] somewhat guarded secondary to pain, [antalgic gait noted] Neurological: Speech clear, no gross sensory deficit Has patient had previous pain injection?: No Conservative treatment options previously tried: Prescription medications Length of treatment: Longer than 12 weeks Meds Home Medications and Allergies Home Medications ?Medication ?Instructions ?Recorded ?Confirmed ?Type cholecalciferol (vitamin D3) 125 5,000 iunits PO DAILY Osteoporosis 10/05/21 12/17/24 History mcg (5,000 unit) capsule lisinopril 20 mg tablet 20 mg PO DAILY bp 09/16/22 12/17/24 History biotin 5,000 mcg sublingual tablet 5,000 mcg sublingual DAILY 03/29/23 12/17/24 History SUPPLIMENT levomefolate 15 mg-algal oil 1 cap PO DAILY #30 caps 08/18/23 12/17/24 Rx 90.314 mg capsule dextromethorphan IR 45 1 tab PO DAILY #30 ea 02/12/24 12/17/24 Rx mg-bupropion ER 105 mg biphasic tablet (Auvelity) duloxetine 30 mg capsule,delayed 30 mg PO DAILY #30 caps 06/11/24 12/17/24 Rx release omeprazole 40 mg capsule,delayed See Rx Instructions .Route 09/30/24 12/17/24 Rx release .COMPLEX #90 caps baclofen 10 mg tablet See Rx Instructions .Route 11/04/24 12/17/24 Rx .COMPLEX #60 tabs gabapentin 300 mg capsule 300 mg PO HS #90 caps 11/04/24 12/17/24 Rx rosuvastatin 20 mg tablet See Rx Instructions .Route 11/19/24 12/17/24 Rx .COMPLEX #90 tabs metronidazole 500 mg tablet 500 mg PO TID 7 days #21 tabs 12/11/24 12/17/24 Rx ciprofloxacin HCl 500 mg tablet 500 mg PO BID 7 days #14 tabs 12/16/24 12/17/24 Rx bupropion HCl 100 mg tablet 100 mg PO ONCE 12/17/24 12/17/24 History triamterene 37.5 See Rx Instructions .Route 12/26/24 Rx mg-hydrochlorothiazide 25 mg tablet .COMPLEX #90 tabs potassium chloride 10 mEq 10 meq PO DAILY #90 tabs 12/31/24 Rx tablet,extended release metoprolol succinate 100 mg See Rx Instructions .Route 01/09/25 Rx tablet,extended release 24 hr .COMPLEX #90 tabs New Prescriptions to Start Prescriptions: Allergies Allergy/AdvReac Type Severity Reaction Status Date / Time niacin (NIACIN) Allergy Unknown Verified 12/17/24 14:02 Assessment and Plan *Assessment and plan (1) Degenerative joint disease of cervical spine: Status: Acute Category: Medical Code(s): M47.812 - Spondylosis without myelopathy or radiculopathy, cervical region Plan I will refill her gabapentin and baclofen and provide a 3-month supply of this medication. Patient will return to clinic in 3 months. Patient has been instructed to contact the clinic with any concerns before the next appointment. Dr. Meza has reviewed this note and agrees with this plan of care. This note was dictated using voice recognition software and make contain errors or omissions. All injections are used with Lidocaine, Bupivacaine and dexamethasone. Occasionally urine drug screen is needed to verify patient's compliance with our office pain contract. This is ordered based off specific treatments related to chronic pain with the potential to abuse certain medications.
[2025-02-03 14:09] VITALS: BP 113/72; PULSE 60; RESP 14; O2SAT 96; BMI 24.3
== END 2025-02-03 23:59 | disposition home or self-care (01) ==
PROVIDERS: PCP Nurse Practitioner; Visit Provider Nurse Practitioner Family
DX: M47.812 Spondylosis without myelopathy or radiculopathy, cervical region (principal); Z79.899 Other long term (current) drug therapy
CPT/HCPCS: 99212; G0463

== ENCOUNTER 2025-05-27 09:19 | Day surgery (SDC) | payer MEDICARE, OTHER, SELFPAY ==
[2025-05-26 09:13] VITALS: BMI 27.4
[2025-05-27] MEDS: CYCLOPENTOLATE 2% OPHTH SOLN 2ML BOTTLE OP ×3 (10:00→10:10)
[2025-05-27] MEDS: TETRACAINE 0.5% OPTH SOL 15ML OP ×3 (10:00→10:11)
[2025-05-27] MEDS: PHENYLEPHRINE 2.5% OPHTH SOLN 2ML OP ×3 (10:00→10:10)
[2025-05-27 10:03] VITALS: BP 135/69; PULSE 57; RESP 16; TEMP 36.7; O2SAT 98
[2025-05-27 11:00] VITALS: BP 163/74; PULSE 60; RESP 16; O2SAT 100
[2025-05-27] MEDS: MIDAZOLAM 2MG/2ML VIAL 1 MG IV (11:01)
[2025-05-27] MEDS: TIMOLOL 0.5% OPTH SOLN 5ML OP (11:01)
[2025-05-27] MEDS: LIDOCAINE 1% PF 2ML VIAL 2 ML IJ (11:01)
[2025-05-27] MEDS: TRI-MOXI 15MG/1MG/ML 1ML OPHTH VIAL 1 ML OP (11:02)
[2025-05-27 11:05] VITALS: BP 145/66; PULSE 55; RESP 16; O2SAT 100
[2025-05-27 11:10] VITALS: BP 141/66; PULSE 55; RESP 16; O2SAT 100
[2025-05-27 11:13] VITALS: BP 114/74; PULSE 57; RESP 17; TEMP 36.1; O2SAT 100
--- NOTE | 2025-05-27 12:20 | P.PCN_ITS ---
[facility] Procedure Note Date: 05/27/25 Time: 12:20 Procedure Note:: Preoperative Diagnosis: Cataract combined NS Cortical Complex [Right] Eye Postop diagnosis: same Operation: Microscopic phacoemulsification with intraocular lens implant [Right] Eye Specimen: None Blood Loss: None The patient was examined in the office with a complaint of poor vision in the [right] eye. The patient reports that this interferes with ADLs such as reading, watching TV and/or driving or the vision is like looking through a foggy haze and is very troubling. The patient was examined and found to have a visually significant cataract with best corrected vision of [20/400] by refraction and/or glare testing. Treatment options, risks and benefits were explained and the patient elected to have cataract surgery in an attempt to improve their vision. The patient had the eye anesthetized with topical tetracaine, the eye ways prepped and draped in the usual fashion for cataract surgery. A paracentesis and a temporal keratotomy were made. 0.2cc of 1% lidocaine PF was placed into the anterior chamber. And aqueous/viscoelastic exchange was done and a 360 degree capsulorexis was performed. Through hydrodissection and delineation with BSS on a cannula was done. The lens nucleus was phecoemulsified with CDE of [6.62]. Residual cortical material was removed using automated I&A The capsular bag was deepened with viscoelastica and a PCIOL was placed in the capsular bag with good centration and stability. Residual viscoelastic was removed using automated I&A. The keratotomy incision was hydrated with BSS on a cannula. The wound were checked and found to be water tight. IOP was checked digitally and adjusted as needed so as not to be too high. 1 drop of timolol 0.5%, ofloxacin, prednisolone acetate and ketorolac was instilled and eye shield taped over the eye. The patient was taken to recovery in good condition and will be seen postoperatively.
== END 2025-05-27 11:32 | disposition home or self-care (01) ==
PROVIDERS: PCP Nurse Practitioner; Visit Provider Ophthalmology
DX: H25.811 Combined forms of age-related cataract, right eye (principal); K21.9 Gastro-esophageal reflux disease without esophagitis; I10 Essential (primary) hypertension; E78.5 Hyperlipidemia, unspecified; Z87.891 Personal history of nicotine dependence; Z88.8 Allergy status to other drugs, medicaments and biological substances; Z79.899 Other long term (current) drug therapy
CPT/HCPCS: 66984; J2250; V2632

== ENCOUNTER 2025-06-17 07:55 | Day surgery (SDC) | payer MEDICARE, OTHER, SELFPAY ==
[2025-06-10 14:59] VITALS: BMI 27.4
[2025-06-17] MEDS: TETRACAINE 0.5% OPTH SOL 15ML OP ×3 (08:40→08:50)
[2025-06-17] MEDS: PHENYLEPHRINE 2.5% OPHTH SOLN 2ML OP ×3 (08:40→08:56)
[2025-06-17 08:42] VITALS: BP 122/69; PULSE 55; RESP 18; TEMP 36.6; O2SAT 99; BMI 27.4
[2025-06-17] MEDS: CYCLOPENTOLATE 2% OPHTH SOLN 2ML BOTTLE OP ×3 (08:54→08:56)
[2025-06-17 09:37] VITALS: BP 124/60; PULSE 54; RESP 16; O2SAT 100
[2025-06-17] MEDS: TIMOLOL 0.5% OPTH SOLN 5ML OP (09:39)
[2025-06-17] MEDS: TRI-MOXI 15MG/1MG/ML 1ML OPHTH VIAL 1 ML OP (09:40)
[2025-06-17] MEDS: LIDOCAINE 1% PF 2ML VIAL 2 ML IJ (09:40)
[2025-06-17] MEDS: MIDAZOLAM 2MG/2ML VIAL 1 MG IV (09:40)
[2025-06-17 09:42] VITALS: BP 127/66; PULSE 55; RESP 16; O2SAT 100
[2025-06-17 09:47] VITALS: BP 130/68; PULSE 54; RESP 16; O2SAT 100
[2025-06-17 09:52] VITALS: BP 121/64; PULSE 54; RESP 16; O2SAT 100
[2025-06-17 09:54] VITALS: BP 133/80; PULSE 54; RESP 16; TEMP 36.2; O2SAT 100
--- NOTE | 2025-06-17 10:24 | HMH.PROCNOTE ---
[facility] Procedure Note Date: 06/17/25 Time: Procedure Note:: Preoperative Diagnosis: Cataract combined NS Cortical Complex [Left] Eye Postop diagnosis: same Operation: Microscopic phacoemulsification with intraocular lens implant [Left] Eye Specimen: None Blood Loss: None The patient was examined in the office with a complaint of poor vision in the [left] eye. The patient reports that this interferes with ADLs such as reading, watching TV and/or driving or the vision is like looking through a foggy haze and is very troubling. The patient was examined and found to have a visually significant cataract with best corrected vision of [20/400] by refraction and/or glare testing. Treatment options, risks and benefits were explained and the patient elected to have cataract surgery in an attempt to improve their vision. The patient had the eye anesthetized with topical tetracaine, the eye ways prepped and draped in the usual fashion for cataract surgery. A paracentesis and a temporal keratotomy were made. 0.2cc of 1% lidocaine PF was placed into the anterior chamber. And aqueous/viscoelastic exchange was done and a 360 degree capsulorexis was performed. Through hydrodissection and delineation with BSS on a cannula was done. The lens nucleus was phecoemulsified with CDE of [6.90]. Residual cortical material was removed using automated I&A The capsular bag was deepened with viscoelastica and a PCIOL was placed in the capsular bag with good centration and stability. Residual viscoelastic was removed using automated I&A. The keratotomy incision was hydrated with BSS on a cannula. The wound were checked and found to be water tight. IOP was checked digitally and adjusted as needed so as not to be too high. 1 drop of timolol 0.5%, ofloxacin, prednisolone acetate and ketorolac was instilled and eye shield taped over the eye. The patient was taken to recovery in good condition and will be seen postoperatively.
--- NOTE | 2025-06-17 14:58 | P.PCN_ITS ---
[facility] Procedure Note Date: 06/17/25 Time: 14:58 Procedure Note:: Preoperative Diagnosis: Cataract combined NS Cortical Complex [Left] Eye Postop diagnosis: same Operation: Microscopic phacoemulsification with intraocular lens implant [Left] Eye Specimen: None Blood Loss: None The patient was examined in the office with a complaint of poor vision in the [left] eye. The patient reports that this interferes with ADLs such as reading, watching TV and/or driving or the vision is like looking through a foggy haze and is very troubling. The patient was examined and found to have a visually significant cataract with best corrected vision of [20/400] by refraction and/or glare testing. Treatment options, risks and benefits were explained and the patient elected to have cataract surgery in an attempt to improve their vision. The patient had the eye anesthetized with topical tetracaine, the eye ways prepped and draped in the usual fashion for cataract surgery. A paracentesis and a temporal keratotomy were made. 0.2cc of 1% lidocaine PF was placed into the anterior chamber. And aqueous/viscoelastic exchange was done and a 360 degree capsulorexis was performed. Through hydrodissection and delineation with BSS on a cannula was done. The lens nucleus was phecoemulsified with CDE of [4.17]. Residual cortical material was removed using automated I&A The capsular bag was deepened with viscoelastic and a PCIOL was placed in the capsular bag with good centration and stability. A 4mm bent tip 27G cannula on a syringe with Trimoxie was directed through the zonules inferiorly and 0.2ml of trimoxie was injected into the anterior vitreous. A plume of the Trimoxie was visualized through the IOL to confirm proper placement of the Trimoxie into the anterior vitreous. Residual viscoelastic was removed using automated I&A. The keratotomy incision was hydrated with BSS on a cannula. The wound were checked and found to be water tight. IOP was checked digitally and adjusted as needed so as not to be too high. 1 drop of timolol 0.5%, and trimoxie was instilled and eye shield taped over the eye. The patient was taken to recovery in good condition and will be seen postoperatively.
== END 2025-06-17 10:00 | disposition home or self-care (01) ==
PROVIDERS: PCP Nurse Practitioner; Visit Provider Ophthalmology
DX: H25.812 Combined forms of age-related cataract, left eye (principal); H02.836 Dermatochalasis of left eye, unspecified eyelid; H02.833 Dermatochalasis of right eye, unspecified eyelid; F41.9 Anxiety disorder, unspecified; I10 Essential (primary) hypertension; K21.9 Gastro-esophageal reflux disease without esophagitis; E78.5 Hyperlipidemia, unspecified; E03.9 Hypothyroidism, unspecified; F33.3 Major depressive disorder, recurrent, severe with psychotic symptoms; Z87.891 Personal history of nicotine dependence; Z79.899 Other long term (current) drug therapy; Z88.8 Allergy status to other drugs, medicaments and biological substances
CPT/HCPCS: 66984; J2250; V2632